=== PATIENT | female | born 1980 | race Caucasian/White ===

== ENCOUNTER 2017-06-09 01:25 | Observation (INO) | payer BC ==
[2017-06-09] MEDS ORDERED: Sodium Chloride 0.9% 10 ML Syringe FLUSH PRN (01:35)
[2017-06-09] MEDS ORDERED: Sodium Chloride 0.9% 1,000 ML IV ONE (01:35)
[2017-06-09] MEDS ORDERED: Sodium Chloride 0.9% 2.5 ML Syringe FLUSH PRN (01:35)
--- NOTE | 2017-06-09 01:40 | EDM.PDOC ---
ED HPI GENERAL MEDICAL PROBLEM - General Chief Complaint: Syncope Stated Complaint: AMBULANCE Time Seen by Provider: 06/09/17 01:27 - History of Present Illness INITIAL COMMENTS - FREE TEXT/NARRATIVE: HISTORY AND PHYSICAL: History of present illness: The patient is a 29-year-old female with a history of seizure disorder for which she is supposed to take Keppra and ran out several months ago and has not restarted it and to also has a history of "hypoglycemia" and he presents via EMS after having an episode of syncope while in a bar drinking alcohol tonight. According to the patient she was having a complete normal day without any fever chills chest pain shortness breath abdominal pain vomiting or diarrhea and she denies as she has a female partner and who says that she was talking to her friends and then the next thing she recalls is being on the floor and paramedics and family being around her period according to her significant other she would like she was going to pass out and she was caught and lowered to the ground. Family says that she looked very pale for quite some time and they requested EMS transfer. The patient had no seizure-like activity and the patient says she usually can sense when she's going to have a seizure and she did not have those symptoms prior to this event. Patient denies any head neck or back pain no extremity complaints. Review of systems: As per history of present illness and below otherwise all systems reviewed and negative. Past medical history: As per history of present illness and as reviewed below otherwise noncontributory. Surgical history: As per history of present illness and as reviewed below otherwise noncontributory. Social history: No reported history of drug or alcohol abuse. Family history: As per history of present illness and as reviewed below otherwise noncontributory. Physical exam: Gen.: Well-developed well-nourished female who is speaking was slightly slurred speech secondary to recent alcohol use and vital signs have been reviewed by me. Patient's overall presentation is with somewhat pale appearing skin HEENT: Atraumatic, normocephalic, pupils reactive, sclerae are slightly injected , negative for scleral icterus, there is some conjunctival pallor mucous membranes moist, throat clear, neck supple, nontender, trachea midline. There is no scalp tenderness or deformity and there are no midline step-offs in his defects of the cervical spine Lungs: Clear to auscultation, breath sounds equal bilaterally, chest nontender. Heart: S1S2, regular rate and rhythm no overt murmurs Abdomen: Soft, nondistended, nontender. Negative for masses or hepatosplenomegaly. NABS Pelvis: Stable nontender. Genitourinary: There is no gross vaginal bleeding on visual inspection Rectal: There is no evidence of any masses or lesions on rectal exam there are no fissures and there is scant stool in the vault which is Hemoccult negative Extremities: Atraumatic, negative for cords or calf pain. Neurovascular unremarkable. Full range of motion without any defects or deficits Neuro: Awake, alert, oriented. Cranial nerves II through XII grossly unremarkable Motor and sensory unremarkable throughout. Exam nonfocal. Diagnostics: EKG CBC CMP troponin EtOH Accu-Chek UA UDS type and screen Lab is rechecking the hemoglobin as the initial draw showed a low level and they asked that I also order a type and screen which I have. The repeat hemoglobin is 6.2 and it discussed this with the patient and her significant other at bedside. The patient now tells me she has a history of gastric bypass and has had gastric ulcers in the past but has never had to receive a blood transfusion. She currently only drinks alcohol maybe twice a month and does not take nonsteroidals and she only drinks one bottle of Mountain Dew a day. She tells me she does have heavy periods but she is currently not on her menses and she denies that there is any evidence of bleeding in her urine and stool or from her vagina.. In the last menses was 2-1/ 2 weeks ago. They are aware of this low hemoglobin and the need for admission and I will discuss this case with the hospitalist [id number]: Case was discussed with Dr. Olivas our hospitalist who accepts the patient for admission observation and agrees with 2 units packed red blood cells. Therapeutics: IV monitor IV fluids Protonix 2 units of packed red blood cells have been ordered Impression: Symptomatically anemia with syncope Definitive disposition and diagnosis as appropriate pending reevaluation and review of above. - Related Data Allergies Allergy/AdvReac Type Severity Reaction Status Date / Time Opioids - Morphine Analogues Allergy Tachycardia Verified 06/09/17 02:26 Home Meds: Home Meds . [No Known Home Meds] 06/09/17 [History] ED ROS GENERAL - Review of Systems Review Of Systems: ROS reveals no pertinent complaints other than HPI. ED EXAM, GENERAL - Physical Exam Exam: See Below (See dictation) Course - Vital Signs Last Recorded V/S: Last Vital Signs Temp 37.1 C 06/09/17 01:38 Pulse 86 06/09/17 01:38 Resp 12 06/09/17 01:38 BP 109/51 L 06/09/17 01:38 Pulse Ox 100 06/09/17 01:38 - Orders/Labs/Meds Orders: Active Orders 24 hr Category Date Time Status Blood Glucose Check, Bedside [RC] ONETIME Care 06/09/17 01:35 Active Cardiac Monitoring [RC] . DIRECTED Care 06/09/17 01:35 Active EKG Documentation Completion [RC] STAT Care 06/09/17 01:35 Active DRUG SCREEN, URINE [URCHEM] Stat Lab 06/09/17 02:13 Ordered TYPE AND SCREEN [BBK] Stat Lab 06/09/17 02:35 Received UA W/MICROSCOPIC [URIN] Stat Lab 06/09/17 02:13 Ordered Sodium Chloride 0.9% [Saline Flush] Med 06/09/17 01:35 Active 10 ml FLUSH ASDIRECTED PRN Sodium Chloride 0.9% [Saline Flush] Med 06/09/17 01:35 Active 2.5 ml FLUSH ASDIRECTED PRN Saline Lock Insert [OM.PC] Stat Oth 06/09/17 01:35 Ordered Transfuse RBC [Transfuse Red Blood Cells] [COMM] Stat Oth 06/09/17 03:09 Ordered Medication Orders Sodium Chloride (Saline Flush) 10 ml FLUSH ASDIRECTED PRN PRN Reason: Keep Vein Open Sodium Chloride (Saline Flush) 2.5 ml FLUSH ASDIRECTED PRN PRN Reason: Keep Vein Open Labs: Laboratory Tests 06/09/17 06/09/17 Range/Units 02:00 02:00 WBC 8.35 (4.0-11.0) K/uL RBC 3.95 L (4.30-5.90) M/uL Hgb 6.2 L (12.0-16.0) g/dL Hct 24.3 L (36.0-46.0) % MCV 61.5 L (80.0-98.0) fL MCH 15.7 L (27.0-32.0) pg MCHC 25.5 L (31.0-37.0) g/dL RDW Std Deviation 57.7 (28.0-62.0) fl RDW Coeff of Kenny 26 H (11.0-15.0) % Plt Count 195 (150-400) K/uL Neut % (Auto) 51.5 (48.0-80.0) % Lymph % (Auto) 38.2 (16.0-40.0) % [place] % (Auto) 7.1 (0.0-15.0) % Eos % (Auto) 1.0 (0.0-7.0) % Baso % (Auto) 2.2 H (0.0-1.5) % Neut # (Auto) 4.3 (1.4-5.7) K/uL Lymph # (Auto) 3.2 H (0.6-2.4) K/uL [place] # (Auto) 0.6 (0.0-0.8) K/uL Eos # (Auto) 0.1 (0.0-0.7) K/uL Baso # (Auto) 0.2 H (0.0-0.1) K/uL Nucleated RBC % 0.0 /100WBC Nucleated RBCs # 0 K/uL Sodium 143 (136-146) mmol/L Potassium 3.6 (3.5-5.1) mmol/L Chloride 112 H (98-110) mmol/L Carbon Dioxide 19 L (21-31) mmol/L BUN 11 (6.0-23.0) mg/dL Creatinine 0.6 (0.6-1.5) mg/dL Est Cr Clr Drug Dosing 123.63 mL/min Estimated GFR (MDRD) > 60.0 ml/min Glucose 93 (60-110) mg/dL Calcium 8.9 (8.8-10.8) mg/dL Total Bilirubin 0.2 (0.1-1.5) mg/dL AST 23 (5-40) IU/L ALT 18 (8-54) IU/L Alkaline Phosphatase 73 (40-150) Troponin I < 0.10 (0.0-0.29) NG/ML Total Protein 6.9 (6.0-8.0) g/dL Albumin 4.4 (3.5-5.0) g/dL Globulin 2.5 (2.0-3.5) g/dL Albumin/Globulin Ratio 1.8 (1.3-2.8) Ethyl Alcohol 300.4 mg/dL Meds: Medications Generic Name Dose Route Start Last Admin Trade Name Lula PRN Reason Stop Dose Admin Sodium Chloride 10 ml 06/09/17 01:35 Saline Flush FLUSH ASDIRECTED PRN Keep Vein Open Sodium Chloride 2.5 ml 06/09/17 01:35 Saline Flush FLUSH ASDIRECTED PRN Keep Vein Open Discontinued Medications Generic Name Dose Route Start Last Admin Trade Name Lula PRN Reason Stop Dose Admin Sodium Chloride 1,000 mls @ 999 mls/hr 06/09/17 01:35 06/09/17 02:02 Normal Saline IV 06/09/17 02:35 999 mls/hr STAT ONE Administration Pantoprazole Sodium 80 mg 06/09/17 02:46 06/09/17 02:58 Protonix Iv IVPUSH 06/09/17 02:47 80 mg .BOLUS ONE Administration Departure - Departure Time of Disposition: 03:11 Disposition: Refer to Observation Condition: Good Clinical Impression: Anemia Qualifiers: Anemia type: unspecified type Qualified Code(s): D64.9 - Anemia, unspecified Syncope Qualifiers: Syncope type: unspecified Qualified Code(s): R55 - Syncope and collapse - Discharge Information Referrals: PCP,None [Primary Care Provider] - Forms: ED Department Discharge - My Orders Last 24 Hours: My Active Orders 06/09/17 01:35 Blood Glucose Check, Bedside [RC] ONETIME Cardiac Monitoring [RC] . DIRECTED EKG Documentation Completion [RC] STAT Sodium Chloride 0.9% [Saline Flush] 10 ml FLUSH ASDIRECTED PRN Sodium Chloride 0.9% [Saline Flush] 2.5 ml FLUSH ASDIRECTED PRN Saline Lock Insert [OM.PC] Stat 06/09/17 02:13 DRUG SCREEN, URINE [URCHEM] Stat UA W/MICROSCOPIC [URIN] Stat 06/09/17 02:35 TYPE AND SCREEN [BBK] Stat 06/09/17 03:09 Transfuse RBC [Transfuse Red Blood Cells] [COMM] Stat - Assessment/Plan Last 24 Hours: My Active Orders 06/09/17 01:35 Blood Glucose Check, Bedside [RC] ONETIME Cardiac Monitoring [RC] . DIRECTED EKG Documentation Completion [RC] STAT Sodium Chloride 0.9% [Saline Flush] 10 ml FLUSH ASDIRECTED PRN Sodium Chloride 0.9% [Saline Flush] 2.5 ml FLUSH ASDIRECTED PRN Saline Lock Insert [OM.PC] Stat 06/09/17 02:13 DRUG SCREEN, URINE [URCHEM] Stat UA W/MICROSCOPIC [URIN] Stat 06/09/17 02:35 TYPE AND SCREEN [BBK] Stat 06/09/17 03:09 Transfuse RBC [Transfuse Red Blood Cells] [COMM] Stat
[2017-06-09 02:34] LABS: CHLORIDE,CL 112 mmol/L (98-110); SODIUM,NA 143 mmol/L (136-146)
[2017-06-09] MEDS ORDERED: Pantoprazole 40 MG Vial IVPUSH ONE (02:46)
[2017-06-09] MEDS: Pantoprazole 40 MG Vial IVPUSH SCH ×2 (08:36→20:18)
--- NOTE | 2017-06-09 09:19 | PCM.HP ---
H&P History of Present Illness - General Date of Service: 06/09/17 Admit Problem/Dx: Admission Diagnosis/Problem Admission Diagnosis/Problem Anemia Source of Information: Patient History Limitations: Reports: No Limitations - History of Present Illness Initial Comments - Free Text/Narative: This 37 year old female with pmh of seizure disorder and is currently not taking her Keppra, iron deficiency anemia secondary to menorrhagia, and gastric bypass presented to the ED last evening after having a syncopal episode at the bar with her . Her reports they were hanging out having a few drinks and suddenly she leaned into her and was "out". People around her commented on how pale she looked. No seizure activity noted by or others around her. She was brought to the ED and noted to have Hgb 6.2 HCT 24.3. She denies current or recent black or bloody BMs, no coffee ground emesis and no bloody emesis. She reports having long history of gastric ulcers, "since age 12", but doesn't take anything for this. She denies heavy use of NSAIDs, she had gastric bypass with cholecystectomy in 2003. She does report heavy menses, which have been a normal for her over the past years and have caused her to have iron deficiency anemia. She reports taking Multivitamins with extra iron, she has a hard time finding iron supplements she can take because she is allergic to red dye 40. She reports 5-6 years ago she was admitted to [facility] due to hgb of 2 and given blood transfusions. She reports her follow up with [facility] has been patchy and felt no one was helping her and she was falling to the seminole. Her and her recently moved to [place] and need to be set up with new providers. In the ED no leukocytosis noted, hgb 6.2 with hct 24.3 UA negative ETOH 300.4. She was noted to be hypotensive, 80-100/50s no tachycardia noted. She was admitted for anemia likely secondary to menorrhagia, which is not current. - Related Data Allergies/Adverse Reactions: Allergies Allergy/AdvReac Type Severity Reaction Status Date / Time red dye Allergy Severe Anaphylactic Verified 06/09/17 09:40 Shock Opioids - Morphine Analogues Allergy Tachycardia Verified 06/09/17 09:40 Home Medications: Home Meds . [No Known Home Meds] 06/09/17 [History] Past Medical History HEENT History: Reports: Other (See Below) Other HEENT History: sinus polyps Cardiovascular History: Reports: None. Denies: Blood Clots/VTE/DVT, CAD, High Cholesterol, Hypertension, DE Respiratory History: Reports: Asthma, Bronchitis, Recurrent, COPD (reports she was diagnosed at 22, never had PFT.) Gastrointestinal History: Reports: Cholelithiasis. 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 Reports soaking 1 super tampon in 20 minutes. Wears tampons and poise briefs due to bleeding. Last menses was around thanksgiving and this lasted 2 1/2 weeks. 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15, colposcopy after her child .) Musculoskeletal History: Reports: Arthritis, Fibromyalgia, Other (See Below) Other Musculoskeletal History: scoliosis Neurological History: Reports: Head Trauma, Migraines, Seizure Psychiatric History: Reports: None Endocrine/Metabolic History: Reports: None Hematologic History: Reports: Anemia Oncologic (Cancer) History: Reports: None Dermatologic History: Reports: None - Infectious Disease History Infectious Disease History: Reports: Chicken Pox, Human Papilloma Virus (HPV) - Past Surgical History Head Surgeries/Procedures: Reports: None HEENT Surgical History: Reports: Adenoidectomy, Tonsillectomy Respiratory Surgical History: Reports: None GI Surgical History: Reports: Bariatric Procedure, Cholecystectomy Neurological Surgical History: Reports: None Musculoskeletal Surgical History: Reports: None - History Comment History Comment: Identical twin, 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 Social & Family History - Family History Family Medical History: Noncontributory - Tobacco Use Smoking Status *Q: Current Every Day Smoker Years of Tobacco use: 17 Packs/Tins Daily: 1 Second Hand Smoke Exposure: Yes - Caffeine Use Caffeine Use: Reports: Soda - Alcohol Use Alcohol Use Frequency: Socially (couple times a month.) - Recreational Drug Use Recreational Drug Use: No - Living Situation & Occupation Living situation: Reports: (same sex partner) Occupation: Employed ([employer]) H&P Review of Systems - Review of Systems: Review Of Systems: See Below General: Reports: Fatigue. Denies: Fever, Chills, Malaise HEENT: Reports: No Symptoms. Denies: Headaches, Sinus Congestion, Sore Throat, Vertigo Pulmonary: Reports: No Symptoms. Denies: Shortness of Breath, Cough, Sputum Cardiovascular: Reports: No Symptoms. Denies: Chest Pain, Palpitations, Edema Gastrointestinal: Reports: No Symptoms. Denies: Abdominal Pain, Black Stool, Bloody Stool, Decreased Appetite, Nausea, Vomiting Genitourinary: Reports: No Symptoms. Denies: Dysuria, Frequency, Burning, Pain , Urgency Musculoskeletal: Reports: Other (generalized joint pains, secondary to fibromyalgia) Skin: Reports: No Symptoms Neurological: Reports: No Symptoms. Denies: Trouble Speaking Exam - Exam Exam: See Below - Vital Signs Vital Signs: Last Vital Signs Temp 98.9 F 06/09/17 09:10 Pulse 83 06/09/17 09:10 Resp 20 06/09/17 09:10 BP 87/40 L 06/09/17 09:10 Pulse Ox 95 06/09/17 09:10 Weight: 64.5 kg - Exam General: Alert, Oriented, Cooperative HEENT: Conjunctiva Clear, Mucosa Moist & Carrier Neck: Supple, Trachea Midline, 2 Lungs: Clear to Auscultation, Normal Respiratory Effort Cardiovascular: Regular Rate, Regular Rhythm GI/Abdominal Exam: Normal Bowel Sounds, Soft, Non-Tender, No Organomegaly, No Distention, No Abnormal Bruit, No Mass, Pelvis Stable (Female) Exam: No: Vaginal Bleeding, Vaginal Discharge Back Exam: Normal Inspection, Full Range of Motion, NT Extremities: Normal Inspection, Normal Range of Motion, Non-Tender, No Pedal Edema, Normal Capillary Refill Neuro Extensive - Mental Status: Alert, Oriented x3, Normal Mood/Affect, Normal Cognition Psychiatric: Alert, Normal Affect, Normal Mood - Patient Data Result Diagrams: 06/09/17 12:40 06/09/17 02:00 *Q Meaningful Use (ADM) - VTE *Q VTE Criteria *Q: - Stroke *Q Stroke Criteria *Q: - AMI *Q AMI Criteria *Q: - Problem List (1) Syncope SNOMED Code(s): 630807087 ICD Code: R55 - SYNCOPE AND COLLAPSE Status: Acute Current Visit: Yes Qualifiers: Syncope type: unspecified Qualified Code(s): R55 - Syncope and collapse (2) Anemia SNOMED Code(s): 082512928 ICD Code: D64.9 - ANEMIA, UNSPECIFIED Status: Acute Current Visit: Yes Qualifiers: Anemia type: iron deficiency Iron deficiency anemia type: chronic blood loss Qualified Code(s): D50.0 - Iron deficiency anemia secondary to blood loss (chronic) (3) Menorrhagia SNOMED Code(s): 677143701 ICD Code: N92.0 - EXCESSIVE AND FREQUENT MENSTRUATION WITH REGULAR CYCLE Status: Chronic Current Visit: Yes Qualifiers: Menorrahagia type: with irregular cycle Qualified Code(s): N92.1 - Excessive and frequent menstruation with irregular cycle (4) Fibromyalgia SNOMED Code(s): 774633094 ICD Code: M79.7 - FIBROMYALGIA Status: Chronic Current Visit: Yes (5) Hx of seizure disorder SNOMED Code(s): 849863385 ICD Code: Z86.69 - PERSONAL HISTORY OF DIS OF THE NERVOUS SYS AND SENSE ORGANS Status: Chronic Current Visit: Yes (6) Migraine SNOMED Code(s): 53943999 ICD Code: G43.909 - MIGRAINE, UNSP, NOT INTRACTABLE, WITHOUT STATUS MIGRAINOSUS Status: Chronic Current Visit: Yes (7) Dysfunctional uterine bleeding SNOMED Code(s): 84744176 ICD Code: N93.8 - OTHER SPECIFIED ABNORMAL UTERINE AND VAGINAL BLEEDING Status: Acute Current Visit: Yes Problem List Initiated/Reviewed/Updated: Yes Orders Last 24hrs: Active Orders 24 hr Category Date Time Status Hemoccult [Fecal Occult Blood Collection] [RC] Care 06/09/17 07:57 Active ASDIRECTED Telemetry Monitoring [Cardiac Monitoring] [RC] Q8H Care 06/09/17 03:17 Active Regular Diet [DIET] Diet 06/09/17 Breakfast Active Hemoccult [OCCULT BLOOD DIAGNOSTIC] [OP] Routine Lab 06/09/17 07:57 Uncollected Pantoprazole [ProTONIX IV] Med 06/09/17 08:15 Active 40 mg IVPUSH Q12H Medication Orders Pantoprazole Sodium (Protonix Iv) 40 mg IVPUSH Q12H MATEUS Last Admin: 06/09/17 08:36 Dose: 40 mg Sodium Chloride (Saline Flush) 10 ml FLUSH ASDIRECTED PRN PRN Reason: Keep Vein Open Sodium Chloride (Saline Flush) 2.5 ml FLUSH ASDIRECTED PRN PRN Reason: Keep Vein Open Assessment/Plan Comment:: This 37 year old female admitted due to syncope secondary to iron deficiency anemia which is secondary to dysfunctional uterine bleeding. 1. Anemia: Unable to obtain Iron studies, patient already receiving blood and unable add on to ED labwork. Anemia secondary to dysfunctional uterine bleeding. Transfuse with 2 units PRBCS, recheck hgb 1 hr post transfusion. Patient is requesting discharge home after blood. 2. Dysfunctional uterine bleeding: Not active uterine bleeding. Patient requested female provider only, even if surgery is needed. Will Refer to [facility] for evaluation and treatment. 3. Seizure disorder: Ran out of Keppra, last seizure was 1 week ago. Will restart Keppra 750 mg BID today and give 1 month prescription so she is able to establish care with PCP and obtain prescription. VTE prophylaxis: SCDs only Dispo: Likely DC home later today. After 2 units PRBCS hgb remains 7.1 Will give 2 more units today and monitor overnight. Patient is ok with this.
[2017-06-09] MEDS: levETIRAcetam 500 MG Tab PO SCH ×2 (10:12→20:18)
[2017-06-09] MEDS ORDERED: Acetaminophen 325 MG Tab PO PRN (13:30)
[2017-06-10 05:57] LABS: CHLORIDE,CL 112 mmol/L (98-110); SODIUM,NA 140 mmol/L (136-146)
[2017-06-10] MEDS: levETIRAcetam 500 MG Tab PO SCH (08:18)
[2017-06-10] MEDS: Pantoprazole 40 MG Vial IVPUSH SCH (08:18)
--- NOTE | 2017-06-10 09:08 | PCM.DCSUM1 ---
Discharge Summary - Hospital Course Brief History: This 37 year old female with pmh of seizure disorder and is currently not taking her Keppra, iron deficiency anemia secondary to menorrhagia , and gastric bypass presented to the ED after having a syncopal episode at the bar with her . Her reports they were hanging out having a few drinks and suddenly she leaned into her and was "out". People around her commented on how pale she looked. No seizure activity noted by or others around her. She was brought to the ED and noted to have Hgb 6.2 HCT 24.3. She denies current or recent black or bloody BMs, no coffee ground emesis and no bloody emesis. She reports having long history of gastric ulcers, "since age 12", but doesn't take anything for this. She denies use of NSAIDs, she had gastric bypass with cholecystectomy in 2003. She does report heavy menses, which have been a normal for her over the past years and have caused her to have iron deficiency anemia. She reports taking Multivitamins with extra iron, she has a hard time finding iron supplements she can take because she is allergic to red dye 40. She reports 5-6 years ago she was admitted to [facility] due to hgb of 2 and given blood transfusions. She reports her follow up with [employer] has been patchy and felt no one was helping her and she was falling to the dover. Her and her recently moved to [place] and need to be set up with new providers. In the ED no leukocytosis noted, hgb 6.2 with hct 24.3 UA negative ETOH 300.4. She was noted to be hypotensive, 80-100/50s no tachycardia noted. She was admitted for anemia likely secondary to menorrhagia, but is not currently having menses. - Discharge Data Discharge Date: 06/10/17 Discharge Disposition: Home, Self-Care 01 Condition: Good - Discharge Diagnosis/Problem(s) (1) Syncope SNOMED Code(s): 892871774 ICD Code: R55 - SYNCOPE AND COLLAPSE Status: Acute Current Visit: Yes Qualifiers: Syncope type: unspecified Qualified Code(s): R55 - Syncope and collapse (2) Anemia SNOMED Code(s): 208806717 ICD Code: D64.9 - ANEMIA, UNSPECIFIED Status: Acute Current Visit: Yes Qualifiers: Anemia type: iron deficiency Iron deficiency anemia type: chronic blood loss Qualified Code(s): D50.0 - Iron deficiency anemia secondary to blood loss (chronic) (3) Menorrhagia SNOMED Code(s): 057939740 ICD Code: N92.0 - EXCESSIVE AND FREQUENT MENSTRUATION WITH REGULAR CYCLE Status: Chronic Current Visit: Yes Qualifiers: Menorrahagia type: with irregular cycle Qualified Code(s): N92.1 - Excessive and frequent menstruation with irregular cycle (4) Fibromyalgia SNOMED Code(s): 451051827 ICD Code: M79.7 - FIBROMYALGIA Status: Chronic Current Visit: Yes (5) Hx of seizure disorder SNOMED Code(s): 423100126 ICD Code: Z86.69 - PERSONAL HISTORY OF DIS OF THE NERVOUS SYS AND SENSE ORGANS Status: Chronic Current Visit: Yes (6) Migraine SNOMED Code(s): 96617289 ICD Code: G43.909 - MIGRAINE, UNSP, NOT INTRACTABLE, WITHOUT STATUS MIGRAINOSUS Status: Chronic Current Visit: Yes (7) Dysfunctional uterine bleeding SNOMED Code(s): 76535007 ICD Code: N93.8 - OTHER SPECIFIED ABNORMAL UTERINE AND VAGINAL BLEEDING Status: Acute Current Visit: Yes - Patient Instructions Diet: Regular Diet as Tolerated Activity: As Tolerated Driving: May Drive Today Showering/Bathing: May Shower Notify Provider of: Fever, Increased Pain, Swelling and Redness, Drainage, Nausea and/or Vomiting - Discharge Plan Prescriptions/Med Rec: Ferrous Gluconate 324 mg PO TID #100 tablet levETIRAcetam [Keppra] 750 mg PO BID 30 Days #60 tablet Home Medications: Home Meds Ferrous Gluconate 324 mg PO TID #100 tablet 06/10/17 [Rx] levETIRAcetam [Keppra] 750 mg PO BID 30 Days #60 tablet 06/10/17 [Rx] Referrals: Shahida Ba NP [Nurse Practitioner] - 06/19/17 1:00 pm Stacy Armendariz MD [Physician] - 06/26/17 1:45 pm (Registration at 1:20pm.) - Discharge Summary/Plan Comment DC Time >30 min.: No Discharge Summary/Plan Comment: Discharge Diagnoses: Severe iron deficiency anemia Dysfunctional Uterine bleeding Hx Seizures Hx gastric bypass in 2003 Devi was admitted and initially transfused with 2 units PRBCs, hgb elevated to 7.1 and hypotension remained. She was then trasnfused another 2 units, totalling 4 units. Hgb elevated to 9.8 today and hypotension has resolved. She is feeling better, no lightheadedness or dizziness and no tachycardia noted. She is very eager for discharge home. She has not had BM here, but continues to deny having any black or bloody BMs and has no abdominal pain. She was encouraged to continue taking iron TID. She reports menses are very irregular and is unsure when she will have it next. She requested to be set up with female women's health physician and requested to be see by Dr. Armendariz if possible. This was arranged prior to discharge. Regarding seizures, she has not been taking her Keppra, due to running out of her medications. Her last seizure was 1 week ago. I will prescribe her Keppra 750 mg BID and set her up with a PCP here in town so she is able to establish care and obtain prescriptions easier. She is to return to the clinic or ED if concerns should arise. - General Info Date of Service: 06/10/17 Admission Dx/Problem (Free Text: Admission Diagnosis/Problem Admission Diagnosis/Problem Anemia Subjective Update: Feeling a lot better today. Very eager for discharge home. No vaginal bleeding and no black or bloody BMs. She denies chest pain, SOB or palpitations. No lightheadedness or dizziness. Functional Status: Reports: Tolerating Diet, Ambulating, Urinating - Review of Systems General: Reports: No Symptoms. Denies: Fatigue, Malaise HEENT: Reports: No Symptoms. Denies: Headaches, Visual Changes Pulmonary: Reports: No Symptoms. Denies: Shortness of Breath Cardiovascular: Reports: No Symptoms. Denies: Chest Pain, Palpitations, Edema Gastrointestinal: Denies: Abdominal Pain, Melena, Nausea, Vomiting Genitourinary: Reports: No Symptoms. Denies: Dysuria, Frequency, Burning, Pain , Urgency Musculoskeletal: Reports: No Symptoms. Denies: Neck Pain Neurological: Reports: No Symptoms. Denies: Confusion Psychiatric: Denies: No Symptoms, Confusion - Patient Data Vitals - Most Recent: Last Vital Signs Temp 98.3 F 06/10/17 08:00 Pulse 73 06/10/17 08:00 Resp 16 06/10/17 08:00 BP 109/67 12/13/17 08:00 Pulse Ox 99 06/10/17 08:00 Weight - Most Recent: 64.5 kg I&O - Last 24 hours: Intake & Output 06/09/17 06/10/17 06/10/17 22:59 06:59 14:59 Intake Total 1597 500 Output Total 1300 1500 Balance 297 -1000 Lab Results - Last 24 hrs: Laboratory Results - last 24 hr 06/09/17 06/09/17 06/10/17 Range/Units 12:40 21:25 04:39 WBC 7.11 8.07 (4.0-11.0) K/uL RBC 3.80 L 4.78 (4.30-5.90) M/uL Hgb 7.1 L 9.7 L 9.8 L (12.0-16.0) g/dL Hct 25.4 L 33.4 L 33.8 L (36.0-46.0) % MCV 66.8 L 70.7 L (80.0-98.0) fL MCH 18.7 L 20.5 L (27.0-32.0) pg MCHC 28.0 L 29.0 L (31.0-37.0) g/dL RDW Std Deviation 67.0 H 72.6 H (28.0-62.0) fl RDW Coeff of Kenny 28 H 28 H (11.0-15.0) % Plt Count 179 224 (150-400) K/uL Neut % (Auto) 61.8 54.0 (48.0-80.0) % Lymph % (Auto) 27.0 28.4 (16.0-40.0) % Lares % (Auto) 9.1 12.9 (0.0-15.0) % Eos % (Auto) 1.0 2.6 (0.0-7.0) % Baso % (Auto) 1.1 2.1 H (0.0-1.5) % Neut # (Auto) 4.4 4.4 (1.4-5.7) K/uL Lymph # (Auto) 1.9 2.3 (0.6-2.4) K/uL Lares # (Auto) 0.7 1.0 H (0.0-0.8) K/uL Eos # (Auto) 0.1 0.2 (0.0-0.7) K/uL Baso # (Auto) 0.1 0.2 H (0.0-0.1) K/uL Nucleated RBC % 0.0 0.0 /100WBC Nucleated RBCs # 0 0 K/uL Sodium (136-146) mmol/L Potassium (3.5-5.1) mmol/L Chloride (98-110) mmol/L Carbon Dioxide (21-31) mmol/L BUN (6.0-23.0) mg/dL Creatinine (0.6-1.5) mg/dL Est Cr Clr Drug Dosing mL/min Estimated GFR (MDRD) ml/min Glucose (60-110) mg/dL Calcium (8.8-10.8) mg/dL 06/10/17 Range/Units 04:39 WBC (4.0-11.0) K/uL RBC (4.30-5.90) M/uL Hgb (12.0-16.0) g/dL Hct (36.0-46.0) % MCV (80.0-98.0) fL MCH (27.0-32.0) pg MCHC (31.0-37.0) g/dL RDW Std Deviation (28.0-62.0) fl RDW Coeff of Kenny (11.0-15.0) % Plt Count (150-400) K/uL Neut % (Auto) (48.0-80.0) % Lymph % (Auto) (16.0-40.0) % Lares % (Auto) (0.0-15.0) % Eos % (Auto) (0.0-7.0) % Baso % (Auto) (0.0-1.5) % Neut # (Auto) (1.4-5.7) K/uL Lymph # (Auto) (0.6-2.4) K/uL Lares # (Auto) (0.0-0.8) K/uL Eos # (Auto) (0.0-0.7) K/uL Baso # (Auto) (0.0-0.1) K/uL Nucleated RBC % /100WBC Nucleated RBCs # K/uL Sodium 140 (136-146) mmol/L Potassium 4.3 (3.5-5.1) mmol/L Chloride 112 H (98-110) mmol/L Carbon Dioxide 20 L (21-31) mmol/L BUN 14 (6.0-23.0) mg/dL Creatinine 0.6 (0.6-1.5) mg/dL Est Cr Clr Drug Dosing 123.30 mL/min Estimated GFR (MDRD) > 60.0 ml/min Glucose 167 H (60-110) mg/dL Calcium 8.0 L (8.8-10.8) mg/dL Med Orders - Current: Current Medications Acetaminophen (Tylenol) 650 mg PO Q4H PRN PRN Reason: Pain Levetiracetam (Keppra) 750 mg PO BID [facility] Last Admin: 06/10/17 08:18 Dose: 750 mg Pantoprazole Sodium (Protonix Iv) 40 mg IVPUSH Q12H [facility] Last Admin: 06/10/17 08:18 Dose: 40 mg Sodium Chloride (Saline Flush) 10 ml FLUSH ASDIRECTED PRN PRN Reason: Keep Vein Open Sodium Chloride (Saline Flush) 2.5 ml FLUSH ASDIRECTED PRN PRN Reason: Keep Vein Open Discontinued Medications Sodium Chloride (Normal Saline) 1,000 mls @ 999 mls/hr IV STAT ONE Stop: 06/09/17 02:35 Last Admin: 06/09/17 02:02 Dose: 999 mls/hr Pantoprazole Sodium (Protonix Iv) 80 mg IVPUSH .BOLUS ONE Stop: 06/09/17 02:47 Last Admin: 06/09/17 02:58 Dose: 80 mg - Exam General: Reports: Alert, Oriented, Cooperative, No Acute Distress Neck: Reports: Supple Lungs: Reports: Clear to Auscultation, Normal Respiratory Effort Cardiovascular: Reports: Regular Rate, Regular Rhythm GI/Abdominal Exam: Normal Bowel Sounds, Soft, Non-Tender, No Organomegaly, No Distention, No Abnormal Bruit, No Mass, Pelvis Stable Extremities: Normal Inspection, Normal Range of Motion, Non-Tender, No Pedal Edema, Normal Capillary Refill Neurological: Reports: No New Focal Deficit Psy/Mental Status: Reports: Alert, Normal Affect, Normal Mood *Q Meaningful Use (DIS) - VTE *Q VTE Criteria *Q: - Stroke *Q Stroke Criteria *Q: - AMI *Q AMI Criteria *Q:
== END 2017-06-10 10:35 | disposition home or self-care (01) ==
LOC: MW.ED 01:25 → MW.MS 03:12
PROVIDERS: ADMIT Internal Medicine; ATTEND Internal Medicine
DX: N92.0 Excessive and frequent menstruation with regular cycle (principal); D50.0 Iron deficiency anemia secondary to blood loss (chronic); G40.909 Epilepsy, unspecified, not intractable, without status epilepticus; M79.7 Fibromyalgia; N93.8 Other specified abnormal uterine and vaginal bleeding; I95.9 Hypotension, unspecified; J44.9 Chronic obstructive pulmonary disease, unspecified; M19.90 Unspecified osteoarthritis, unspecified site; M41.9 Scoliosis, unspecified; F17.200 Nicotine dependence, unspecified, uncomplicated; Z90.49 Acquired absence of other specified parts of digestive tract; Z98.84 Bariatric surgery status; Z88.5 Allergy status to narcotic agent; Z91.048 Other nonmedicinal substance allergy status; Z90.89 Acquired absence of other organs
CPT/HCPCS: 36415; 36430; 80048; 80053; 80305; 81001; 84484; 85014; 85018; 85025; 85045; 86850; 86900; 86901; 86920; 86921; 86922; 88104; 93005; 96361; 96374; 96376; 99285; A9270; C9113; G0378; G0480; J7040; P9016; 99284

== ENCOUNTER 2017-08-17 08:17 | Day surgery (SDC) | payer BC ==
[~2017-08-17 08:17] MED LIST: Clindamycin Phosphate 900 MG in Premix Bag 1 BAG IV SCH; Clindamycin Phosphate in D5W 900 MG in Premix Bag 1 BAG IV ONE; Dexamethasone 4 MG/ML 5 ML MDV ONE; Lactated Ringers 1,000 ML IV SCH; Levofloxacin/Dextrose 5%-Water 500 MG in Premix Bag 1 BAG IV ONE; Midazolam 1 MG/ML 2 ML SDV ONE; Ondansetron 4 MG/2 ML SDV ONE; Propofol 200 MG/20 ML SDV ONE; Rocuronium 10 MG/ML 10 ML Syringe ONE; Sodium Chloride 0.9% 10 ML Syringe FLUSH PRN; Sodium Chloride 0.9% 2.5 ML Syringe FLUSH PRN; Succinylcholine/Normal Saline 200 MG/10 ML Syringe ONE; fentaNYL 100 MCG/2 ML SDV ONE
--- NOTE | 2017-08-17 08:41 | PCM.PREANE ---
Preanesthetic Assessment - Anesthesia/Transfusion/Family Hx Anesthesia History: Prior Anesthesia Without Reaction Family History of Anesthesia Reaction: No Transfusion History: Prior Transfusion Without Reaction Type of Transfusion Reactions: Reports: Other (see below) Other Type of Transfusion Reaction: states had reaction to transfusion 5 yrs ago but unsure what kind Intubation History: Unknown - Review of Systems General: No Symptoms Pulmonary: No Symptoms Cardiovascular: No Symptoms Gastrointestinal: No Symptoms Neurological: No Symptoms Other: Reports: None - Physical Assessment Height: 1.68 m Weight: 65.317 kg ASA Class: 2 Mental Status: Alert & Oriented x3 Airway Class: Mallampati = 2 Dentition: Reports: Missing Tooth/Teeth (x4 (two upper front)) Thyro-Mental Finger Breadths: 3 Mouth Opening Finger Breadths: 3 ROM/Head Extension: Full Lungs: Clear to Auscultation, Normal Respiratory Effort Cardiovascular: Regular Rate, Regular Rhythm - Allergies Allergies/Adverse Reactions: Allergies Allergy/AdvReac Type Severity Reaction Status Date / Time cephalexin Allergy Rash Verified 08/12/17 09:20 meperidine [From Demerol] Allergy Rash Verified 08/12/17 08:27 morphine Allergy Tachycardia Verified 08/12/17 08:27 - Blood Blood Available: No - Anesthesia Plan Pre-Op Medication Ordered: None - Acknowledgements Anesthesia Type Planned: General Anesthesia Pt an Appropriate Candidate for the Planned Anesthesia: Yes Alternatives and Risks of Anesthesia Discussed w Pt/Guardian: Yes Pt/Guardian Understands and Agrees with Anesthesia Plan: Yes PreAnesthesia Questionnaire HEENT History: Reports: None Respiratory History: Reports: Asthma, COPD Gastrointestinal History: Reports: Hemorrhoids, Irritable Bowel Syndrome Other Gastrointestinal History: hx gastric ulcer Genitourinary History: Reports: None [employer] History: Reports: Dysfunctional Uterine Bleeding, Musculoskeletal History: Reports: Back Pain, Chronic, Fibromyalgia Neurological History: Reports: Migraines, Seizure (grand mal seizures, last one 06/09/17) Psychiatric History: Reports: Anxiety, Panic Attack Endocrine/Metabolic History: Reports: Other (See Below) Other Endocrine/Metabolic History: hypoglycemia Hematologic History: Reports: Anemia, Blood Transfusion(s) (4 unita 06/09/17, lqst hemoglobin 12 (per patient)), Transfusion Reaction Other Hematologic History: states had some sort of reaction with first blood transfusion 5 yrs ago, but unsure what it was - Past Surgical History Head Surgeries/Procedures: Reports: None HEENT Surgical History: Reports: Adenoidectomy, Tonsillectomy GI Surgical History: Reports: Bariatric Procedure, Cholecystectomy Other GI Surgeries/Procedures: hx gastric bypass with open aubree - SUBSTANCE USE Smoking Status *Q: Current Every Day Smoker (1 ppd) Tobacco Use Within Last Twelve Months: Cigarettes Recreational Drug Use History: No - HOME MEDS Home Medications: Home Meds Albuterol [IJD: Albuterol HFA] 2 puff INH ASDIRECTED PRN 08/12/17 [History] Ferrous Gluconate 1 tab PO DAILY 08/12/17 [History] Ginkgo Biloba 150 mg PO DAILY 08/12/17 [History] Multivitamin [Multivitamins] 1 tab PO DAILY 08/12/17 [History] Multivitamin with Minerals [Hair, Skin and Nails] 1 tab PO DAILY 08/12/17 [ History] Naproxen Sodium [Aleve] 1 tab PO ASDIRECTED PRN 08/12/17 [History] levETIRAcetam [Keppra] 750 mg PO BID 08/12/17 [History] - CURRENT (IN HOUSE) MEDS Current Meds: Current Medications Lactated Ringer's (Ringers, Lactated) 1,000 mls @ 125 mls/hr IV ASDIRECTED MATEUS Sodium Chloride (Saline Flush) 10 ml FLUSH ASDIRECTED PRN PRN Reason: Keep Vein Open Sodium Chloride (Saline Flush) 2.5 ml FLUSH ASDIRECTED PRN PRN Reason: Keep Vein Open Discontinued Medications Dexamethasone (Dexamethasone) Confirm Administered Dose 20 mg .ROUTE .STK-MED ONE Stop: 08/17/17 06:49 Fentanyl (Sublimaze) Confirm Administered Dose 100 mcg .ROUTE .STK-MED ONE Stop: 08/17/17 06:38 Levofloxacin/Dextrose 500 mg/ (Premix) 100 mls @ 100 mls/hr IV ONETIME ONE Stop: 08/17/17 05:59 Clindamycin Phosphate 900 mg/ (Premix) 50 mls @ 100 mls/hr IV ONETIME ONE Stop: 08/17/17 08:14 Lidocaine HCl (Xylocaine-Mpf 1%) Confirm Administered Dose 5 ml .ROUTE .STK-MED ONE Stop: 08/17/17 06:49 Midazolam HCl (Versed 1 Mg/Ml) Confirm Administered Dose 2 mg .ROUTE .STK-MED ONE Stop: 08/17/17 06:38 Ondansetron HCl (Zofran) Confirm Administered Dose 4 mg .ROUTE .STK-MED ONE Stop: 08/17/17 06:49 Propofol (Diprivan 20 Ml) Confirm Administered Dose 200 mg .ROUTE .STK-MED ONE Stop: 08/17/17 06:38 Rocuronium [place] (Zemuron) Confirm Administered Dose 100 mg .ROUTE .STK-MED ONE Stop: 08/17/17 06:50 Succinylcholine Chloride (Succinylcholine In Ns Pf) Confirm Administered Dose 200 mg .ROUTE .STK-MED ONE Stop: 08/17/17 06:50
[2017-08-17] MEDS ORDERED: Scopolamine 1.5 MG Transdermal Patch TRDERM PRN (08:42)
[2017-08-17 09:43] LABS: CHLORIDE,CL 111 mmol/L (98-110); SODIUM,NA 142 mmol/L (136-146)
[2017-08-17] MEDS ORDERED: Fluorescein 5 ML Vial ONE (10:10)
[2017-08-17] MEDS ORDERED: Ketorolac 30 MG/ML SDV ONE (10:13)
[2017-08-17] MEDS ORDERED: fentaNYL 100 MCG/2 ML SDV ONE (10:14)
[2017-08-17] MEDS ORDERED: Aluminum Hydroxide/Magnesium Hydroxide/Simethicone Susp 30 ML Cup PO PRN (11:15)
[2017-08-17] MEDS ORDERED: fentaNYL 100 MCG/2 ML SDV IVPUSH PRN (11:15)
[2017-08-17] MEDS ORDERED: Promethazine 25 MG/ML SDV IM PRN (11:15)
[2017-08-17] MEDS ORDERED: Ketorolac 30 MG/ML SDV IVPUSH PRN (11:15)
[2017-08-17] MEDS ORDERED: Acetaminophen/oxyCODONE 325-5 MG Tab PO PRN (11:15)
[2017-08-17] MEDS ORDERED: Ondansetron 4 MG/2 ML SDV IVPUSH PRN (11:15)
[2017-08-17] MEDS ORDERED: Ketorolac 30 MG/ML SDV IVPUSH ONE (11:15)
[2017-08-17] MEDS ORDERED: Belladonna Alkaloids/Opium 16.2-30 MG Supp RECTAL PRN (11:15)
[2017-08-17] MEDS ORDERED: Lactated Ringers 1,000 ML IV SCH (11:15)
[2017-08-17] MEDS: fentaNYL 100 MCG/2 ML SDV IVPUSH PRN ×3 (11:32→12:05)
--- NOTE | 2017-08-17 11:32 | PCM.OPNOTE ---
- General Post-Op/Procedure Note Date of Surgery/Procedure: 08/17/17 Operative Procedure(s): TVH/cystoscopy/anterior vaginal biopsy Findings: 8-10 week uterus, normal appearing ovaries Bilateral patent ureters 1 cm anterior vaginal right sided ulcer-biopsied Pre Op Diagnosis: menorrhagia Post-Op Diagnosis: Same Anesthesia Technique: General ET Tube Primary Surgeon: Stacy Armendariz Fluid Replacement, Intraop: 1,000 EBL in mLs: 150 Complications: none known Condition: Good Free Text/Narrative:: Dictation [id number]
--- NOTE | 2017-08-17 12:18 | PCM.POSTAN ---
POST ANESTHESIA ASSESSMENT - MENTAL STATUS Mental Status: Alert, Oriented - RESPIRATORY Respiratory Status: Respiratory Rate WNL, Airway Patent, O2 Saturation Stable - CARDIOVASCULAR CV Status: Pulse Rate WNL, Blood Pressure Stable - GASTROINTESTINAL GI Status: No Symptoms - PAIN Pain Score: 5 - POST OP HYDRATION Hydration Status: Adequate & Stable - OBSERVATIONS Free Text/Narrative:: no anesthesia problems
[2017-08-17] MEDS: Acetaminophen/oxyCODONE 325-5 MG Tab PO PRN ×2 (15:09→19:42)
--- NOTE | 2017-08-17 17:23 | PCM.SN ---
- Free Text/Narrative Note: Patient is doing well overall, pain is controlled. Explained intraop findings and procedure. VS remain stable. Continue cares.
--- NOTE | 2017-08-17 17:29 | OR ---
SURGEON: Stacy Armendariz M.D. DATE OF PROCEDURE: 08/17/2017 PREOPERATIVE DIAGNOSES: Menorrhagia with associated iron-deficiency anemia vaginal ulcer. POSTOPERATIVE DIAGNOSES: Menorrhagia with associated iron-deficiency anemia vaginal ulcer. PROCEDURES: Total vaginal hysterectomy, cystoscopy, anterior vaginal wall mucosa biopsy. ANESTHESIA: General endotracheal anesthesia. FLUIDS: 1000 mL of crystalloid. ESTIMATED BLOOD LOSS: 150 mL. COMPLICATIONS: None known. FINDINGS: A 6-be-21-week size uterus. Normal-appearing ovaries. Bilateral patent ureters with a fluorescein, 1 cm anterior right-sided vaginal wall mucosal ulcer. DISPOSITION: The patient to recovery room in stable condition. PROCEDURE DETAIL: Devi is a 37-year-old female who has ongoing difficulties with menorrhagia. She actually was hospitalized and underwent blood transfusion just a few months back due to the significant increased blood loss. Since then, she has been on iron therapy. She would like to proceed with definitive intervention in the form of hysterectomy. Proper consent was obtained. The patient was taken to the operating room, where she underwent endotracheal anesthesia, placed in modified dorsal lithotomy position, prepped and draped in the usual sterile fashion. SCDs to lower extremities. Sheridan to gravity. She was prepped and draped in usual sterile fashion. She received clindamycin and Levaquin for preoperative antibiotic. A time-out was performed. A weighted speculum, anterior L[place] sidewall retractors gently placed, cervix grasped with Clay clamp. At this time, it was noted that there was a vaginal ulcer along the right side of the vagina. We will obtain a biopsy of this at the end the case. Once the cervix was grasped with Clay clamp, was circumscribed with Bovie cautery anterior posteriorly, overlying mucosa was dissected sharply and bluntly from underlying peritoneum. The peritoneum was tented downward posteriorly and entered sharply. A longer weighted speculum was replaced with the shorter anteriorly. The anterior cul-de-sac was then entered sharply. Retractors were placed to mobilize the bladder away from operative field. Gely clamps were placed to secure uterosacral ligament on the either side, transected and suture ligated with 2-0 Vicryl. Remainder of the suture will be 2-0 Vicryl unless otherwise mentioned. In serial fashion, remainder of the pedicles were secured including the base of the cardinal ligament, remainder of the cardinal ligament, base of the broad ligament, around the length of the upper portion of the broad ligament, and the utero tubo-ovarian pedicle on either side. The uterus was now removed and handed off to pathology technician. The ovaries were inspected on either side and found to be normal in appearance. The utero tubo-ovarian pedicles are inspected, found to be hemostatic. Sutures trimmed. The uterosacral ligament on either side was plicated to the vaginal apex. The remainder of pedicles were inspected and found to be hemostatic. The cuff was now closed using 0 Vicryl in continuous running locked fashion. The cuff line was then inspected and found to be hemostatic. The anterior vaginal ulcer was now biopsied with Tia. Specimens were sent to pathology. The base was cauterized. The Sheridan catheter balloon was now deflated. The Sheridan catheter was removed. Cystoscope was introduced using normal saline as distention media, was able to visualized the dome of the bladder, was found to be intact, followed by trigone which was also found to be intact. The right ureteral orifice followed by the left ureteral orifice had fluorescein-dyed urine seen streaming from them. The bladder was now drained. The Sheridan catheter was replaced. The cuff line was once again inspected and found to be hemostatic. The patient tolerated the procedure well. She will go to PACU in stable condition. Specimens to pathology. KATHLEEN / FABRICE /[id number] DICK
[2017-08-18] MEDS: Acetaminophen/oxyCODONE 325-5 MG Tab PO PRN ×2 (00:19→05:17)
[2017-08-18 05:32] LABS: CHLORIDE,CL 110 mmol/L (98-110); SODIUM,NA 141 mmol/L (136-146)
--- NOTE | 2017-08-18 08:23 | PCM.SURGPN ---
- General Info Date of Service: 08/18/17 POD#: 1 Functional Status: Reports: Pain Controlled, Tolerating Diet, Ambulating, Urinating - Review of Systems General: Denies: Fever Pulmonary: Denies: Shortness of Breath Cardiovascular: Denies: Chest Pain, Palpitations, Lightheadedness Gastrointestinal: Reports: Flatus. Denies: Abdominal Pain, Nausea, Vomiting Genitourinary: Denies: Flank Pain Psychiatric: Reports: No Symptoms - Patient Data Vitals - Most Recent: Last Vital Signs Temp 37.2 C 08/18/17 07:30 Pulse 76 08/18/17 07:30 Resp 16 08/18/17 07:30 BP 90/47 L 08/18/17 07:30 Pulse Ox 97 08/18/17 07:30 Weight - Most Recent: 65.317 kg I&O - Last 24 Hours: Intake & Output 08/17/17 08/18/17 08/18/17 22:59 06:59 14:59 Intake Total 1604 1200 Output Total 100 1450 Balance 1504 -250 Lab Results Last 24 Hrs: Laboratory Results - last 24 hr 08/17/17 08/17/17 08/17/17 Range/Units 09:20 09:20 09:20 WBC 6.22 (4.0-11.0) K/uL RBC 4.78 (4.30-5.90) M/uL Hgb 12.3 (12.0-16.0) g/dL Hct 39.0 (36.0-46.0) % MCV 81.6 (80.0-98.0) fL MCH 25.7 L (27.0-32.0) pg MCHC 31.5 (31.0-37.0) g/dL RDW Std Deviation 73.6 H (28.0-62.0) fl RDW Coeff of Kenny 25 H (11.0-15.0) % Plt Count 225 (150-400) K/uL Neut % (Auto) (48.0-80.0) % Lymph % (Auto) (16.0-40.0) % [place] % (Auto) (0.0-15.0) % Eos % (Auto) (0.0-7.0) % Baso % (Auto) (0.0-1.5) % Neut # (Auto) (1.4-5.7) K/uL Lymph # (Auto) (0.6-2.4) K/uL [place] # (Auto) (0.0-0.8) K/uL Eos # (Auto) (0.0-0.7) K/uL Baso # (Auto) (0.0-0.1) K/uL Nucleated RBC % 0.0 /100WBC Nucleated RBCs # 0 K/uL Sodium 142 (136-146) mmol/L Potassium 3.9 (3.5-5.1) mmol/L Chloride 111 H (98-110) mmol/L Carbon Dioxide 24 (21-31) mmol/L BUN 9 (6.0-23.0) mg/dL Creatinine 0.6 (0.6-1.5) mg/dL Est Cr Clr Drug Dosing 119.01 mL/min Estimated GFR (MDRD) > 60.0 ml/min Glucose 95 (60-110) mg/dL Calcium 8.7 L (8.8-10.8) mg/dL HCG, Qual NEGATIVE (NEG) Blood Type Antibody Screen 08/17/17 08/18/17 08/18/17 Range/Units 09:20 04:47 04:47 WBC 11.76 H (4.0-11.0) K/uL RBC 4.62 (4.30-5.90) M/uL Hgb 12.0 (12.0-16.0) g/dL Hct 37.7 (36.0-46.0) % MCV 81.6 (80.0-98.0) fL MCH 26.0 L (27.0-32.0) pg MCHC 31.8 (31.0-37.0) g/dL RDW Std Deviation 71.4 H (28.0-62.0) fl RDW Coeff of Kenny 24 H (11.0-15.0) % Plt Count 211 (150-400) K/uL Neut % (Auto) 62.8 (48.0-80.0) % Lymph % (Auto) 24.4 (16.0-40.0) % [place] % (Auto) 11.5 (0.0-15.0) % Eos % (Auto) 0.7 (0.0-7.0) % Baso % (Auto) 0.6 (0.0-1.5) % Neut # (Auto) 7.4 H (1.4-5.7) K/uL Lymph # (Auto) 2.9 H (0.6-2.4) K/uL [place] # (Auto) 1.4 H (0.0-0.8) K/uL Eos # (Auto) 0.1 (0.0-0.7) K/uL Baso # (Auto) 0.1 (0.0-0.1) K/uL Nucleated RBC % 0.0 /100WBC Nucleated RBCs # 0 K/uL Sodium 141 (136-146) mmol/L Potassium 4.3 (3.5-5.1) mmol/L Chloride 110 (98-110) mmol/L Carbon Dioxide 25 (21-31) mmol/L BUN 6 (6.0-23.0) mg/dL Creatinine 0.5 L (0.6-1.5) mg/dL Est Cr Clr Drug Dosing 142.81 mL/min Estimated GFR (MDRD) > 60.0 ml/min Glucose 94 (60-110) mg/dL Calcium 8.3 L (8.8-10.8) mg/dL HCG, Qual (NEG) Blood Type O NEGATIVE Antibody Screen NEGATIVE Med Orders - Current: Current Medications Al Hydroxide/Mg Hydroxide (Mag-Al Plus) 30 ml PO Q4H PRN PRN Reason: Indigestion Belladonna Alkaloids/Opium (B & O Supprettes No. 15a) 1 supp RECTAL Q4H PRN PRN Reason: Pain Last Admin: 08/17/17 11:35 Dose: 1 supp Fentanyl (Sublimaze) 30 mcg IVPUSH Q1H PRN PRN Reason: Pain Stop: 08/18/17 11:16 Lactated Ringer's (Ringers, Lactated) 1,000 mls @ 125 mls/hr IV ASDIRECTED [facility] Last Admin: 08/17/17 08:47 Dose: 125 mls/hr Lactated Ringer's (Ringers, Lactated) 1,000 mls @ 125 mls/hr IV ASDIRECTED [facility] Ketorolac Tromethamine (Toradol) 30 mg IVPUSH Q6H PRN PRN Reason: Pain (severe 7-10) Stop: 08/22/17 11:15 Ondansetron HCl (Zofran) 4 mg IVPUSH Q6H PRN PRN Reason: Nausea/Vomiting Oxycodone/Acetaminophen (Percocet 325-5 Mg) 1 tab PO Q4H PRN PRN Reason: Pain (moderate 4-6) Oxycodone/Acetaminophen (Percocet 325-5 Mg) 2 tab PO Q4H PRN PRN Reason: Pain (moderate 4-6) Last Admin: 08/18/17 05:17 Dose: 2 tab Promethazine HCl (Phenergan) 25 mg IM Q6H PRN PRN Reason: Nausea/Vomiting Scopolamine (Transderm-Scop) 1.5 mg TRDERM Q72H PRN PRN Reason: Nausea Last Admin: 08/17/17 08:53 Dose: 1.5 mg Sodium Chloride (Saline Flush) 10 ml FLUSH ASDIRECTED PRN PRN Reason: Keep Vein Open Sodium Chloride (Saline Flush) 2.5 ml FLUSH ASDIRECTED PRN PRN Reason: Keep Vein Open Discontinued Medications Dexamethasone (Dexamethasone) Confirm Administered Dose 20 mg .ROUTE .STK-MED ONE Stop: 08/17/17 06:49 Fentanyl (Sublimaze) Confirm Administered Dose 100 mcg .ROUTE .STK-MED ONE Stop: 08/17/17 06:38 Fentanyl (Sublimaze) 50 mcg IVPUSH Q5M PRN PRN Reason: Pain (moderate 4-6) Stop: 08/17/17 14:00 Last Admin: 08/17/17 12:05 Dose: 50 mcg Fentanyl (Sublimaze) Confirm Administered Dose 100 mcg .ROUTE .STK-MED ONE Stop: 08/17/17 10:15 Fluorescein Sodium (Ak-Fluor) Confirm Administered Dose 5 ml .ROUTE .STK-MED ONE Stop: 08/17/17 10:11 Levofloxacin/Dextrose 500 mg/ (Premix) 100 mls @ 100 mls/hr IV ONETIME ONE Stop: 08/17/17 05:59 Last Admin: 08/17/17 09:29 Dose: 100 mls/hr Clindamycin Phosphate 900 mg/ (Premix) 50 mls @ 100 mls/hr IV ONETIME ONE Stop: 08/17/17 08:14 Last Admin: 08/17/17 08:48 Dose: 100 mls/hr Ketorolac Tromethamine (Toradol) Confirm Administered Dose 30 mg .ROUTE .STK- MED ONE Stop: 08/17/17 10:14 Ketorolac Tromethamine (Toradol) 30 mg IVPUSH ONETIME ONE Stop: 08/17/17 11:16 Last Admin: 08/17/17 12:41 Dose: Not Given Lidocaine HCl (Xylocaine-Mpf 1%) Confirm Administered Dose 5 ml .ROUTE .STK-MED ONE Stop: 08/17/17 06:49 Midazolam HCl (Versed 1 Mg/Ml) Confirm Administered Dose 2 mg .ROUTE .STK-MED ONE Stop: 08/17/17 06:38 Ondansetron HCl (Zofran) Confirm Administered Dose 4 mg .ROUTE .STK-MED ONE Stop: 08/17/17 06:49 Propofol (Diprivan 20 Ml) Confirm Administered Dose 200 mg .ROUTE .STK-MED ONE Stop: 08/17/17 06:38 Rocuronium [place] (Zemuron) Confirm Administered Dose 100 mg .ROUTE .STK-MED ONE Stop: 08/17/17 06:50 Succinylcholine Chloride (Succinylcholine In Ns Pf) Confirm Administered Dose 200 mg .ROUTE .STK-MED ONE Stop: 08/17/17 06:50 - Exam General: Alert, Oriented Lungs: Normal Respiratory Effort Cardiovascular: Regular Rate, Regular Rhythm GI/Abdominal Exam: Normal Bowel Sounds, Soft, No Distention Extremities: No Pedal Edema. No: Jennifer's Sign Skin: Warm, Dry, Intact Psy/Mental Status: Alert, Normal Affect - Problem List & Annotations (1) Menorrhagia SNOMED Code(s): 977719841 Code(s): N92.0 - EXCESSIVE AND FREQUENT MENSTRUATION WITH REGULAR CYCLE Status: Acute Current Visit: Yes - Problem List Review Problem List Initiated/Reviewed/Updated: Yes - My Orders Last 24 Hours: Active Orders 24 hr Category Date Time Status Patient Status [ADT] Routine ADT 08/17/17 11:15 Active Antiembolic Devices [RC] PER UNIT ROUTINE Care 08/17/17 11:15 Active Notify Provider Intake and Out [RC] ASDIRECTED Care 08/17/17 11:15 Active Notify Provider Vital Signs [RC] ASDIRECTED Care 08/17/17 11:15 Active Oxygen Therapy [RC] ASDIRECTED Care 08/17/17 11:15 Active RT Incentive Spirometry [RC] Q2HWA Care 08/17/17 11:15 Active Ready for Discharge [RC] PER UNIT ROUTINE Care 08/18/17 08:19 Ordered Up With Assistance [RC] PER UNIT ROUTINE Care 08/17/17 11:15 Active Up ad Anahi [RC] PER UNIT ROUTINE Care 08/17/17 11:15 Active Regular Diet [DIET] Diet 08/17/17 Lunch Active Acetaminophen/oxyCODONE [Percocet 325-5 MG] Med 08/17/17 11:15 Active 1 tab PO Q4H PRN Acetaminophen/oxyCODONE [Percocet 325-5 MG] Med 08/17/17 11:15 Active 2 tab PO Q4H PRN Alum Hydrox/Mag Hydrox/Simeth [Mag-Al Plus] Med 08/17/17 11:15 Active 30 ml PO Q4H PRN Belladonna/Opium [B & O Supprettes No. 15A] Med 08/17/17 11:15 Active 1 supp RECTAL Q4H PRN Ketorolac [Toradol] Med 08/17/17 11:15 Active 30 mg IVPUSH Q6H PRN Lactated Ringers [Ringers, Lactated] 1,000 ml Med 08/17/17 08:15 Active IV ASDIRECTED Lactated Ringers [Ringers, Lactated] 1,000 ml Med 08/17/17 11:15 Active IV ASDIRECTED Ondansetron [Zofran] Med 08/17/17 11:15 Active 4 mg IVPUSH Q6H PRN Promethazine [Phenergan] Med 08/17/17 11:15 Active 25 mg IM Q6H PRN Scopolamine [Transderm-Scop] Med 08/17/17 08:42 Active 1.5 mg TRDERM Q72H PRN fentaNYL [Sublimaze] Med 08/17/17 11:15 Active 30 mcg IVPUSH Q1H PRN Peripheral IV Discontinue [OM.PC] Routine Oth 08/17/17 11:15 Ordered Sequential Compression Device [OM.PC] Per Unit Routine Oth 08/17/17 11:15 Ordered Resuscitation Status Routine Resus Stat 08/17/17 11:15 Ordered Medication Orders Al Hydroxide/Mg Hydroxide (Mag-Al Plus) 30 ml PO Q4H PRN PRN Reason: Indigestion Belladonna Alkaloids/Opium (B & O Supprettes No. 15a) 1 supp RECTAL Q4H PRN PRN Reason: Pain Last Admin: 08/17/17 11:35 Dose: 1 supp Fentanyl (Sublimaze) 30 mcg IVPUSH Q1H PRN PRN Reason: Pain Stop: 08/18/17 11:16 Lactated Ringer's (Ringers, Lactated) 1,000 mls @ 125 mls/hr IV ASDIRECTED [facility] Last Admin: 08/17/17 08:47 Dose: 125 mls/hr Lactated Ringer's (Ringers, Lactated) 1,000 mls @ 125 mls/hr IV ASDIRECTED [facility] Ketorolac Tromethamine (Toradol) 30 mg IVPUSH Q6H PRN PRN Reason: Pain (severe 7-10) Stop: 08/22/17 11:15 Ondansetron HCl (Zofran) 4 mg IVPUSH Q6H PRN PRN Reason: Nausea/Vomiting Oxycodone/Acetaminophen (Percocet 325-5 Mg) 1 tab PO Q4H PRN PRN Reason: Pain (moderate 4-6) Oxycodone/Acetaminophen (Percocet 325-5 Mg) 2 tab PO Q4H PRN PRN Reason: Pain (moderate 4-6) Last Admin: 08/18/17 05:17 Dose: 2 tab Admin: 08/18/17 00:19 Dose: 2 tab Admin: 08/17/17 19:42 Dose: 2 tab Admin: 08/17/17 15:09 Dose: 2 tab Promethazine HCl (Phenergan) 25 mg IM Q6H PRN PRN Reason: Nausea/Vomiting Scopolamine (Transderm-Scop) 1.5 mg TRDERM Q72H PRN PRN Reason: Nausea Last Admin: 08/17/17 08:53 Dose: 1.5 mg Sodium Chloride (Saline Flush) 10 ml FLUSH ASDIRECTED PRN PRN Reason: Keep Vein Open Sodium Chloride (Saline Flush) 2.5 ml FLUSH ASDIRECTED PRN PRN Reason: Keep Vein Open - Assessment Assessment (Free Text/Narrative):: POD 1 status post TVH - Plan Plan (Free Text/Narrative):: Patient is feeling very well and would like to go home. VS are stable, labs reassuring. Discharge to home. Follow up at [facility] 2 and 6 weeks. Infection and bleeding warnings reviewed. Discharge instructions reviewed. Rx for percocet sent into [place] pharmacy.
--- NOTE | 2017-08-18 14:51 | PCM48HPAN ---
Post Anesthesia Note - EVALUATION WITHIN 48HRS OF ANESTHETIC Vital Signs in Normal Range: Yes Patient Participated in Evaluation: Yes Respiratory Function Stable: Yes Airway Patent: Yes Cardiovascular Function Stable: Yes Hydration Status Stable: Yes Pain Control Satisfactory: Yes Nausea and Vomiting Control Satisfactory: Yes Mental Status Recovered: Yes Resp Rate: 16
== END 2017-08-18 09:23 | disposition home or self-care (01) ==
LOC: MW.SDS 08:17 → MERGE 08:17 → MW.MS 10:49 → MW.SDS 08-18 09:23
PROVIDERS: ATTEND Obstetrics & Gynecology
DX: N84.0 Polyp of corpus uteri (principal); N87.9 Dysplasia of cervix uteri, unspecified; N76.5 Ulceration of vagina; Z88.1 Allergy status to other antibiotic agents; Z88.8 Allergy status to other drugs, medicaments and biological substances
CPT/HCPCS: 36415; 58260; 80048; 84703; 85025; 85027; 86850; 86900; 86901; A9270; J1100; J1885; J1956; J2250; J2405; J3010; J7120; 00944; 88305; 88307; 88312; J2704

== ENCOUNTER 2017-12-03 15:43 | Emergency (ER) | payer BC ==
[2017-12-03 16:54] LABS: CHLORIDE,CL 110 mmol/L (98-107); SODIUM,NA 145 mmol/L (136-145)
--- NOTE | 2017-12-03 17:03 | EDM.PDOC ---
ED HPI GENERAL MEDICAL PROBLEM - General Chief Complaint: Chest Pain Stated Complaint: CHEST PAIN Time Seen by Provider: 12/03/17 15:50 Source of Information: Reports: Patient History Limitations: Reports: No Limitations - History of Present Illness INITIAL COMMENTS - FREE TEXT/NARRATIVE: HISTORY AND PHYSICAL: History of present illness: [Pt comes to the ER via private vehicle. 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 Female friend brought her to ER. She now feels anxious and admits to have some discomfort in her mid chest. Denies shortness of breath and difficulty breathing. Admits that she has missed several doses of her Keppra and she's run out of her medication. Pharmacy is contacted and verifies that patient picked up a 30 day supply of her medication on October 06. She has not picked up any refills the meantime.] Review of systems: As per history of present illness and below otherwise all systems reviewed and negative. Past medical history: As per history of present illness and as reviewed below otherwise noncontributory. Surgical history: As per history of present illness and as reviewed below otherwise noncontributory. Social history: No reported history of drug or alcohol abuse. Family history: As per history of present illness and as reviewed below otherwise noncontributory. Physical exam: HEENT: Atraumatic, normocephalic. PERRLA. EOMI. Oral mucous membranes are pink and moist. Neck supply and w/o lymphadenopathy or thyromegaly. No oral sores or lesions. Lungs: Clear to auscultation, breath sounds equal bilaterally. Heart: S1S2, regular rate and rhythm. Abdomen: Soft, nondistended, nontender. Negative for masses, guarding and rebound. Pelvis: Stable nontender. Genitourinary: Deferred. Rectal: Deferred. Extremities: Atraumatic, negative for cords or calf pain. No swelling or cyanosis to feet or lower legs. Neurovascular unremarkable. Neuro: Awake, alert, oriented. Cranial nerves II through XII unremarkable. Cerebellum unremarkable. Motor and sensory unremarkable throughout. Exam nonfocal. Psych: Alert & oriented. Makes good eye contact. Appropriate. Good historian. Diagnostics: [CBC, CMP, urinalysis, UDS, TSH, Keppra level, EKG] Impression: [Seizure disorder, noncompliant] Plan: [EKG shows NSR, with a rate of 75. Labs are WNL. Keppra level pending and is a send out. Excuse from work today. May return to work tomorrow without restrictions. Rx given for Keppra 750 mg #60 sig one by mouth twice a day 0 refills. Urged her to be compliant with her medications to prevent further seizures. She is instructed to follow-up with her primary care this week. She is in agreement with today's plan. All questions are answered and concerns are addressed.] Definitive disposition and diagnosis as appropriate pending reevaluation and review of above. chest pain Pain Score (Numeric/FACES): 4 - Related Data Allergies Allergy/AdvReac Type Severity Reaction Status Date / Time Cephalosporins Allergy Difficulty Verified 12/03/17 18:04 Breathing morphine Allergy Difficulty Verified 12/03/17 18:04 Breathing opium alkaloids Allergy Difficulty Uncoded 12/03/17 18:04 Breathing Home Meds: Home Meds Ferrous Gluconate 324 mg PO TID 12/03/17 [History] levETIRAcetam [Levetiracetam] 750 mg PO BID 12/03/17 [History] oxyCODONE HCl/Acetaminophen [Oxycodone-Acetaminophen 5-325] 1 tab PO Q6H PRN 01/13 [History] Past Medical History Respiratory History: Reports: COPD Neurological History: Reports: Seizure - Past Surgical History HEENT Surgical History: Reports: Adenoidectomy, Tonsillectomy GI Surgical History: Reports: Bariatric Procedure Female Surgical History: Reports: Hysterectomy Social & Family History - Family History Family Medical History: Noncontributory - Tobacco Use Smoking Status *Q: Current Every Day Smoker Years of Tobacco use: 17 Packs/Tins Daily: 1 - Recreational Drug Use Recreational Drug Use: No ED ROS GENERAL - Review of Systems Review Of Systems: ROS reveals no pertinent complaints other than HPI. ED EXAM, GENERAL - Physical Exam Exam: See Below Course - Vital Signs Last Recorded V/S: Last Vital Signs Temp 97.6 F 12/03/17 17:50 Pulse 76 12/03/17 17:50 Resp 16 12/03/17 17:50 BP 98/62 12/03/17 17:50 Pulse Ox 98 12/03/17 17:50 - Orders/Labs/Meds Orders: Active Orders 24 hr Category Date Time Status EKG 12 Lead [EKG Documentation Completion] [RC] STAT Care 12/03/17 16:05 Active DRUG SCREEN, URINE [URCHEM] Stat Lab 12/03/17 16:20 Ordered LEVETIRACETAM, S [REF] Stat Lab 12/03/17 16:00 Received UA W/MICROSCOPIC [URIN] Stat Lab 12/03/17 16:20 Ordered Labs: Laboratory Tests 12/03/17 12/03/17 12/03/17 Range/Units 15:52 16:00 16:00 WBC 9.08 (4.0-11.0) K/uL RBC 5.19 (4.30-5.90) M/uL Hgb 14.8 (12.0-16.0) g/dL Hct 43.5 (36.0-46.0) % MCV 83.8 (80.0-98.0) fL MCH 28.5 (27.0-32.0) pg MCHC 34.0 (31.0-37.0) g/dL RDW Std Deviation 52.2 (28.0-62.0) fl RDW Coeff of Kenny 17 H (11.0-15.0) % Plt Count 259 (150-400) K/uL MPV 10.00 (7.40-12.00) fL Neut % (Auto) 60.1 (48.0-80.0) % Lymph % (Auto) 30.9 (16.0-40.0) % [place] % (Auto) 6.6 (0.0-15.0) % Eos % (Auto) 1.8 (0.0-7.0) % Baso % (Auto) 0.6 (0.0-1.5) % Neut # (Auto) 5.5 (1.4-5.7) K/uL Lymph # (Auto) 2.8 H (0.6-2.4) K/uL [place] # (Auto) 0.6 (0.0-0.8) K/uL Eos # (Auto) 0.2 (0.0-0.7) K/uL Baso # (Auto) 0.1 (0.0-0.1) K/uL Nucleated RBC % 0.0 /100WBC Nucleated RBCs # 0 K/uL Sodium 145 (136-145) mmol/L Potassium 3.7 (3.5-5.1) mmol/L Chloride 110 H (98-107) mmol/L Carbon Dioxide 20.3 L (21.0-32.0) mmol/L BUN 13 (7.0-18.0) mg/dL Creatinine 0.6 (0.6-1.0) mg/dL Est Cr Clr Drug Dosing 121.98 mL/min Estimated GFR (MDRD) > 60.0 ml/min Glucose 85 (74-106) mg/dL POC Glucose 77 (60-110) mg/dL Calcium 8.3 L (8.5-10.1) mg/dL Total Bilirubin 0.1 L (0.2-1.0) mg/dL AST 38 H (15-37) IU/L ALT 51 (14-63) IU/L Alkaline Phosphatase 63 (46-116) U/L Troponin I < 0.050 (0.000-0.056) ng/mL Total Protein 6.4 (6.4-8.2) g/dL Albumin 3.6 (3.4-5.0) g/dL Globulin 2.8 (2.0-3.5) g/dL Albumin/Globulin Ratio 1.3 (1.3-2.8) TSH 3rd Generation 0.79 (0.36-3.74) uIU/mL Urine Color Urine Appearance Urine pH (5.0-8.0) Ur Specific [place] (1.001-1.035) Urine Protein (NEGATIVE) mg/dL Urine Glucose (UA) (NEGATIVE) mg/dL Urine Ketones (NEGATIVE) mg/dL Urine Occult Blood (NEGATIVE) Urine Nitrite (NEGATIVE) Urine Bilirubin (NEGATIVE) Urine Urobilinogen (<2.0) EU/dL Ur Leukocyte Esterase (NEGATIVE) Urine RBC (0-2/HPF) Urine WBC (0-5/HPF) Ur Epithelial Cells (NONE-FEW) Urine Bacteria (NEGATIVE) Urine Opiates Screen (NEGATIVE) Ur Oxycodone Screen (NEGATIVE) Urine Methadone Screen (NEGATIVE) Ur Barbiturates Screen (NEGATIVE) Ur Phencyclidine Scrn (NEGATIVE) Ur Amphetamine Screen (NEGATIVE) U Methamphetamines Scrn (NEGATIVE) U Benzodiazepines Scrn (NEGATIVE) U Cocaine Metab Screen (NEGATIVE) U Marijuana (THC) Screen (NEGATIVE) 12/03/17 12/03/17 Range/Units 16:20 16:20 WBC (4.0-11.0) K/uL RBC (4.30-5.90) M/uL Hgb (12.0-16.0) g/dL Hct (36.0-46.0) % MCV (80.0-98.0) fL MCH (27.0-32.0) pg MCHC (31.0-37.0) g/dL RDW Std Deviation (28.0-62.0) fl RDW Coeff of Kenny (11.0-15.0) % Plt Count (150-400) K/uL MPV (7.40-12.00) fL Neut % (Auto) (48.0-80.0) % Lymph % (Auto) (16.0-40.0) % [place] % (Auto) (0.0-15.0) % Eos % (Auto) (0.0-7.0) % Baso % (Auto) (0.0-1.5) % Neut # (Auto) (1.4-5.7) K/uL Lymph # (Auto) (0.6-2.4) K/uL [place] # (Auto) (0.0-0.8) K/uL Eos # (Auto) (0.0-0.7) K/uL Baso # (Auto) (0.0-0.1) K/uL Nucleated RBC % /100WBC Nucleated RBCs # K/uL Sodium (136-145) mmol/L Potassium (3.5-5.1) mmol/L Chloride (98-107) mmol/L Carbon Dioxide (21.0-32.0) mmol/L BUN (7.0-18.0) mg/dL Creatinine (0.6-1.0) mg/dL Est Cr Clr Drug Dosing mL/min Estimated GFR (MDRD) ml/min Glucose (74-106) mg/dL POC Glucose (60-110) mg/dL Calcium (8.5-10.1) mg/dL Total Bilirubin (0.2-1.0) mg/dL AST (15-37) IU/L ALT (14-63) IU/L Alkaline Phosphatase (46-116) U/L Troponin I (0.000-0.056) ng/mL Total Protein (6.4-8.2) g/dL Albumin (3.4-5.0) g/dL Globulin (2.0-3.5) g/dL Albumin/Globulin Ratio (1.3-2.8) TSH 3rd Generation (0.36-3.74) uIU/mL Urine Color YELLOW Urine Appearance CLEAR Urine pH 6.0 (5.0-8.0) Ur Specific [place] 1.025 (1.001-1.035) Urine Protein NEGATIVE (NEGATIVE) mg/dL Urine Glucose (UA) NEGATIVE (NEGATIVE) mg/dL Urine Ketones 15 H (NEGATIVE) mg/dL Urine Occult Blood NEGATIVE (NEGATIVE) Urine Nitrite NEGATIVE (NEGATIVE) Urine Bilirubin NEGATIVE (NEGATIVE) Urine Urobilinogen 0.2 (<2.0) EU/dL Ur Leukocyte Esterase NEGATIVE (NEGATIVE) Urine RBC 0-1 (0-2/HPF) Urine WBC 0-1 (0-5/HPF) Ur Epithelial Cells OCCASIONAL (NONE-FEW) Urine Bacteria 1+ H (NEGATIVE) Urine Opiates Screen NEGATIVE (NEGATIVE) Ur Oxycodone Screen NEGATIVE (NEGATIVE) Urine Methadone Screen NEGATIVE (NEGATIVE) Ur Barbiturates Screen NEGATIVE (NEGATIVE) Ur Phencyclidine Scrn NEGATIVE (NEGATIVE) Ur Amphetamine Screen NEGATIVE (NEGATIVE) U Methamphetamines Scrn NEGATIVE (NEGATIVE) U Benzodiazepines Scrn NEGATIVE (NEGATIVE) U Cocaine Metab Screen NEGATIVE (NEGATIVE) U Marijuana (THC) Screen NEGATIVE (NEGATIVE) Departure - Departure Time of Disposition: 17:30 Disposition: Home, Self-Care 01 Condition: Good Clinical Impression: Seizure disorder Instructions: Seizure, Adult, [id number] Referrals: PCP,None [Primary Care Provider] - Forms: ED Department Discharge Additional Instructions: The following information is given to patients seen in the emergency department who are being discharged to home. This information is to outline your options for follow-up care. We provide all patients seen in our emergency department with a follow-up referral. The need for follow-up, as well as the timing and circumstances, are variable depending upon the specifics of your emergency department visit. If you don't have a primary care physician on staff, we will provide you with a referral. We always advise you to contact your personal physician following an emergency department visit to inform them of the circumstance of the visit and for follow-up with them and/or the need for any referrals to a consulting specialist. The emergency department will also refer you to a specialist when appropriate. This referral assures that you have the opportunity for follow-up care with a specialist. All of these measure are taken in an effort to provide you with optimal care, which includes your follow-up. Under all circumstances we always encourage you to contact your private physician who remains a resource for coordinating your care. When calling for follow-up care, please make the office aware that this follow-up is from your recent emergency room visit. If for any reason you are refused follow-up, please contact the [facility] emergency department at and asked to speak to the emergency department charge nurse. [facility] Primary Care [address] [place] [id number] Establish care with a local primary care provider in follow-up there in the next 5 days. Take all medications as prescribed. Return to ER as needed as discussed. - My Orders Last 24 Hours: My Active Orders 12/03/17 16:00 LEVETIRACETAM, S [REF] Stat 12/03/17 16:05 EKG 12 Lead [EKG Documentation Completion] [RC] STAT 12/03/17 16:20 DRUG SCREEN, URINE [URCHEM] Stat UA W/MICROSCOPIC [URIN] Stat - Assessment/Plan Last 24 Hours: My Active Orders 12/03/17 16:00 LEVETIRACETAM, S [REF] Stat 12/03/17 16:05 EKG 12 Lead [EKG Documentation Completion] [RC] STAT 12/03/17 16:20 DRUG SCREEN, URINE [URCHEM] Stat UA W/MICROSCOPIC [URIN] Stat
== END 2017-12-03 17:49 | disposition home or self-care (01) ==
LOC: MERGE 15:43 → MW.ED 15:43
DX: G40.909 Epilepsy, unspecified, not intractable, without status epilepticus (principal); J44.9 Chronic obstructive pulmonary disease, unspecified; F17.210 Nicotine dependence, cigarettes, uncomplicated; Z88.5 Allergy status to narcotic agent
CPT/HCPCS: 36415; 80053; 80177; 80305; 81001; 82962; 84443; 84484; 85025; 93005; 99284; 99284-25

== ENCOUNTER 2018-08-21 16:27 | Emergency (ER) | payer BC ==
--- NOTE | 2018-08-21 16:46 | EDM.PDOC ---
ED HPI GENERAL MEDICAL PROBLEM - General Chief Complaint: Cardiovascular Problem Stated Complaint: SOB Time Seen by Provider: 08/21/18 16:41 - History of Present Illness INITIAL COMMENTS - FREE TEXT/NARRATIVE: HISTORY AND PHYSICAL: History of present illness: Patient 38-year-old white female presents with chest pain this is vaguely described without associated short of breath nausea vomiting or palpitations. She denies trauma denies fever chills or other concern she denies history of pulmonary embolus or DVT she denies drugs Review of systems: As per history of present illness and below otherwise all systems reviewed and negative. Past medical history: As per history of present illness and as reviewed below otherwise noncontributory. Surgical history: As per history of present illness and as reviewed below otherwise noncontributory. Social history: No reported history of drug or alcohol abuse. Family history: As per history of present illness and as reviewed below otherwise noncontributory. Physical exam: HEENT: Atraumatic, normocephalic, pupils reactive, negative for conjunctival pallor or scleral icterus, mucous membranes moist, throat clear, neck supple, nontender, trachea midline. Lungs: Clear to auscultation, breath sounds equal bilaterally, chest nontender. Heart: S1S2, regular, negative for clicks, rubs, or JVD. Abdomen: Soft, nondistended, nontender. Negative for masses or hepatosplenomegaly. Negative for costovertebral tenderness. Pelvis: Stable nontender. Genitourinary: Deferred. Rectal: Deferred. Extremities: Atraumatic, negative for cords or calf pain. Neurovascular unremarkable. Neuro: Awake, alert, oriented. Cranial nerves II through XII unremarkable. Cerebellum unremarkable. Motor and sensory unremarkable throughout. Exam nonfocal. 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 chest/ body aches Pain Score (Numeric/FACES): 9 - Related Data Allergies Allergy/AdvReac Type Severity Reaction Status Date / Time red dye Allergy Severe Anaphylactic Verified 08/21/18 16:35 Shock cephalexin Allergy Rash Verified 08/21/18 16:35 Cephalosporins Allergy Difficulty Verified 08/21/18 16:35 Breathing meperidine [From Demerol] Allergy Rash Verified 08/21/18 16:35 morphine Allergy Tachycardia Verified 08/21/18 16:35 Opioids - Morphine Analogues Allergy Tachycardia Verified 08/21/18 16:35 opium alkaloids Allergy Difficulty Uncoded 08/21/18 16:35 Breathing Home Meds: Home Meds levETIRAcetam [Keppra] 750 mg PO BID 30 Days #60 tablet 06/10/17 [Rx] Multivitamin with Minerals [Hair, Skin and Nails] 1 tab PO DAILY 08/12/17 [ History] Ferrous Gluconate 324 mg PO TID 12/03/17 [History] Past Medical History HEENT History: Reports: None, Other (See Below) Other HEENT History: sinus polyps Cardiovascular History: Reports: None Respiratory History: Reports: Asthma, Bronchitis, Recurrent, COPD Gastrointestinal History: Reports: Cholelithiasis, Hemorrhoids, Irritable Bowel Syndrome Other Gastrointestinal History: hx gastric ulcer Genitourinary History: Reports: None, Other (See Below) Other Genitourinary History: HPV 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: Reports: Dysfunctional Uterine Bleeding, Other (See Below), Musculoskeletal History: Reports: Arthritis, Back Pain, Chronic, Fibromyalgia, Other (See Below) Other Musculoskeletal History: scoliosis Neurological History: Reports: Head Trauma, Migraines, Seizure Psychiatric History: Reports: Anxiety, None, Panic Attack Endocrine/Metabolic History: Reports: None, Other (See Below) Other Endocrine/Metabolic History: hypoglycemia Hematologic History: Reports: Anemia, Blood Transfusion(s), Transfusion Reaction Other Hematologic History: states had some sort of reaction with first blood transfusion 5 yrs ago, but unsure what it was Oncologic (Cancer) History: Reports: None Dermatologic History: Reports: None - Infectious Disease History Infectious Disease History: Reports: Chicken Pox - Past Surgical History Head Surgeries/Procedures: Reports: None GI Surgical History: Reports: Bariatric Procedure, Cholecystectomy - History Comment History Comment: Identical twin, 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 Social & Family History - Family History Family Medical History: Noncontributory - Tobacco Use Smoking Status *Q: Current Every Day Smoker Years of Tobacco use: 21 Packs/Tins Daily: 1 - Caffeine Use Caffeine Use: Reports: Soda - Recreational Drug Use Recreational Drug Use: No - Living Situation & Occupation Living situation: Reports: (same sex partner) Occupation: Employed ([employer]) [employer] - Review of Systems Review Of Systems: ROS reveals no pertinent complaints other than HPI. ED EXAM, GENERAL - Physical Exam Exam: See Below (The dictation) Course - Vital Signs Last Recorded V/S: Last Vital Signs Temp 36.0 C 08/21/18 16:30 Pulse 74 08/21/18 16:30 Resp 18 08/21/18 16:30 BP 122/75 08/21/18 16:30 Pulse Ox 100 08/21/18 16:30 - Orders/Labs/Meds Orders: Active Orders 24 hr Category Date Time Status EKG Documentation Completion [RC] STAT Care 08/21/18 16:44 Ordered Chest 1V Frontal [CR] Stat Exams 08/21/18 16:44 Ordered CBC WITH AUTO DIFF [HEME] Stat Lab 08/21/18 16:44 Ordered COMPREHENSIVE METABOLIC PN,CMP [CHEM] Stat Lab 08/21/18 16:44 Ordered DRUG SCREEN, URINE [URCHEM] Stat Lab 08/21/18 16:44 Ordered TROPONIN I [CHEM] Stat Lab 08/21/18 16:44 Ordered Departure - Departure Time of Disposition: 16:46 Disposition: Home, Self-Care 01 Condition: Good Clinical Impression: Atypical chest pain Referrals: Jennifer Dill PA [Primary Care Provider] - Additional Instructions: The following information is given to patients seen in the emergency department who are being discharged to home. This information is to outline your options for follow-up care. We provide all patients seen in our emergency department with a follow-up referral. The need for follow-up, as well as the timing and circumstances, are variable depending upon the specifics of your emergency department visit. If you don't have a primary care physician on staff, we will provide you with a referral. We always advise you to contact your personal physician following an emergency department visit to inform them of the circumstance of the visit and for follow-up with them and/or the need for any referrals to a consulting specialist. The emergency department will also refer you to a specialist when appropriate. This referral assures that you have the opportunity for followup care with a specialist. All of these measure are taken in an effort to provide you with optimal care, which includes your followup. Under all circumstances we always encourage you to contact your private physician who remains a resource for coordinating your care. When calling for followup care, please make the office aware that this follow-up is from your recent emergency room visit. If for any reason you are refused follow-up, please contact the [facility] emergency department at and asked to speak to the emergency department charge nurse. Follow primary medical doctor as discussed return as needed as discussed - My Orders Last 24 Hours: My Active Orders 08/21/18 16:44 EKG Documentation Completion [RC] STAT Chest 1V Frontal [CR] Stat CBC WITH AUTO DIFF [HEME] Stat COMPREHENSIVE METABOLIC PN,CMP [CHEM] Stat DRUG SCREEN, URINE [URCHEM] Stat TROPONIN I [CHEM] Stat - Assessment/Plan Last 24 Hours: My Active Orders 08/21/18 16:44 EKG Documentation Completion [RC] STAT Chest 1V Frontal [CR] Stat CBC WITH AUTO DIFF [HEME] Stat COMPREHENSIVE METABOLIC PN,CMP [CHEM] Stat DRUG SCREEN, URINE [URCHEM] Stat TROPONIN I [CHEM] Stat
[2018-08-21 17:32] LABS: CHLORIDE,CL 95 mmol/L (98-107); SODIUM,NA 131 mmol/L (136-145)
--- NOTE | 2018-08-21 18:39 | CR ---
INDICATION: Pain. Shortness of breath. TECHNIQUE: AP portable chest x-ray. COMPARISON: 08/21/2018. FINDINGS: The heart size is normal. Right lung clear without infiltrate or consolidation. Minimal opacity left lung base laterally is hazy and may be related atelectasis. Left lung otherwise clear. Mild scoliosis. Chest otherwise unremarkable. Dictated by Eliseo Plunkett MD @ Aug 21 2018 6:37PM Signed by Dr. Eliseo Plunkett @ Aug 21 2018 6:38PM
== END 2018-08-21 19:15 | disposition home or self-care (01) ==
LOC: MW.ED 16:27
DX: R07.89 Other chest pain (principal); F17.210 Nicotine dependence, cigarettes, uncomplicated; Z88.5 Allergy status to narcotic agent
CPT/HCPCS: 36415; 71045; 71045-26; 80053; 80305-QW; 84484; 85025; 93005; 99283-25; 99284

== ENCOUNTER 2018-09-16 10:59 | Emergency (ER) | payer BC ==
--- NOTE | 2018-09-16 11:13 | EDM.PDOC ---
ED HPI GENERAL MEDICAL PROBLEM - General Chief Complaint: General Stated Complaint: SWELLING Time Seen by Provider: 09/16/18 11:00 Source of Information: Reports: Patient History Limitations: Reports: No Limitations - History of Present Illness INITIAL COMMENTS - FREE TEXT/NARRATIVE: HISTORY AND PHYSICAL: History of present illness: Patient is a 38-year-old female who presents to the ED today with bilateral lower leg edema. Patient states the swelling started over the past week and is progressively worsening. She states she also feels short of breath having a cough for the past 3 days.Patient states she's never had this happen to her prior. Patient denies any recent life events that she can relate to causing this. Patient does express some nausea without vomiting or diarrhea. She denies any recent illness. Patient does smoke about a pack a day for over 15 years. Patient states she does have a history of a seizure disorder which has been controlled over the past several months. She states she also has COPD and asthma. Patient denies fever, chills, chest pain, palpitations, diaphoresis, pain in either arm, abdominal pain, burning with urination, or no other GI, , cardiovascular, or respiratory concerns. Review of systems: As per history of present illness and below otherwise all systems reviewed and negative. Past medical history: As per history of present illness and as reviewed below otherwise noncontributory. Surgical history: As per history of present illness and as reviewed below otherwise noncontributory. Social history: No reported history of drug or alcohol abuse. Family history: As per history of present illness and as reviewed below otherwise noncontributory. Physical exam: General: Patient sitting comfortably in no acute distress and nontoxic appearing HEENT: Atraumatic, normocephalic, pupils reactive, negative for conjunctival pallor or scleral icterus, mucous membranes moist, throat clear, neck supple, nontender, trachea midline. No meningeal signs. Lungs: Clear to auscultation, breath sounds equal bilaterally, chest nontender. Heart: S1S2, regular, negative for clicks, rubs, or overt murmur. Patient is able to lay back fully without difficulty. Negative JVD. Abdomen: Soft, nondistended, nontender. Negative for masses or hepatosplenomegaly. Negative for costovertebral tenderness. No rigidity, rebound , guarding. Pelvis: Stable nontender. Genitourinary: Deferred. Rectal: Deferred. Extremities: Patient does have 3+ pitting edema bilaterally of her lower extremities up to her knees. Cap refill less than 2 seconds. Dorsalis pedis and posterior tibial pulses are grossly intact. Atraumatic, negative for cords or calf pain. Neurovascular unremarkable. Neuro: Awake, alert, oriented. Cranial nerves II through XII unremarkable. Cerebellum unremarkable. Motor and sensory unremarkable throughout. Exam nonfocal. Notes: On exam, patient does have pitting edema. Will do lab work and imaging. Patient does have transaminitis on lab work. Discussed these findings with patient and offered admission but patient declines. Discussed the importance for close follow-up with her primary care provider as well as repeat lab work. Supportive care measures were reviewed and discussed with patient and she is agreeable to plan of care at this time without any questions or concerns. Diagnostics: CBC, CMP, UA, EKG, chest x-ray, BNP, troponin, lower extremity venous ultrasound bilateral, limited abdominal liver Therapeutics: None Prescriptions: Lasix Impression: Lower extremity edema, bilateral Transaminitis Plan: 1. Take medications as prescribed. 2. Elevate her feet and apply compression stockings to help decrease swelling. 3. Eat a low-salt diet to help decrease swelling. 4. Follow-up with your primary care provider and repeat lab work as discussed 5. Return to ED as needed as discussed. Definitive disposition and diagnosis as appropriate pending reevaluation and review of above. bilateral extremities Pain Score (Numeric/FACES): 7 - Related Data Allergies Allergy/AdvReac Type Severity Reaction Status Date / Time red dye Allergy Severe Anaphylactic Verified 08/21/18 16:35 Shock cephalexin Allergy Rash Verified 08/21/18 16:35 Cephalosporins Allergy Difficulty Verified 08/21/18 16:35 Breathing meperidine [From Demerol] Allergy Rash Verified 08/21/18 16:35 morphine Allergy Tachycardia Verified 08/21/18 16:35 Opioids - Morphine Analogues Allergy Tachycardia Verified 08/21/18 16:35 opium alkaloids Allergy Difficulty Uncoded 08/21/18 16:35 Breathing Home Meds: Home Meds levETIRAcetam [Keppra] 750 mg PO BID 30 Days #60 tablet 06/10/17 [Rx] Past Medical History HEENT History: Reports: None, Other (See Below) Other HEENT History: sinus polyps Cardiovascular History: Reports: None Respiratory History: Reports: Asthma, Bronchitis, Recurrent, COPD Gastrointestinal History: Reports: Cholelithiasis, Hemorrhoids, Irritable Bowel Syndrome Other Gastrointestinal History: hx gastric ulcer Genitourinary History: Reports: None, Other (See Below) Other Genitourinary History: HPV 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: Dysfunctional Uterine Bleeding, Other (See Below), Musculoskeletal History: Reports: Arthritis, Back Pain, Chronic, Fibromyalgia, Other (See Below) Other Musculoskeletal History: scoliosis Neurological History: Reports: Head Trauma, Migraines, Seizure Psychiatric History: Reports: Anxiety, None, Panic Attack Endocrine/Metabolic History: Reports: None, Other (See Below) Other Endocrine/Metabolic History: hypoglycemia Hematologic History: Reports: Anemia, Blood Transfusion(s), Transfusion Reaction Other Hematologic History: states had some sort of reaction with first blood transfusion 5 yrs ago, but unsure what it was Oncologic (Cancer) History: Reports: None Dermatologic History: Reports: None - Infectious Disease History Infectious Disease History: Reports: Chicken Pox - Past Surgical History Head Surgeries/Procedures: Reports: None GI Surgical History: Reports: Bariatric Procedure, Cholecystectomy - History Comment History Comment: Identical twin, 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 Social & Family History - Family History Family Medical History: Noncontributory - Caffeine Use Caffeine Use: Reports: Soda - Living Situation & Occupation Living situation: Reports: (same sex partner) Occupation: Employed ([employer]) ED ROS GENERAL - Review of Systems Review Of Systems: ROS reveals no pertinent complaints other than HPI. ED EXAM, GENERAL - Physical Exam Exam: See Below (See dictation) Course - Vital Signs Last Recorded V/S: Last Vital Signs Temp 97.1 F 09/16/18 11:08 Pulse 95 09/16/18 11:08 Resp 20 09/16/18 11:08 BP 107/60 09/16/18 11:08 Pulse Ox 95 09/16/18 11:08 - Orders/Labs/Meds Orders: Active Orders 24 hr Category Date Time Status EKG Documentation Completion [RC] STAT Care 09/16/18 11:28 Active RT Aerosol Therapy [RC] ASDIRECTED Care 09/16/18 11:29 Active Labs: Laboratory Tests 09/16/18 09/16/18 09/16/18 Range/Units 11:22 11:22 11:22 WBC 7.43 (4.0-11.0) K/uL RBC 4.78 (4.30-5.90) M/uL Hgb 14.8 (12.0-16.0) g/dL Hct 43.1 (36.0-46.0) % MCV 90.2 (80.0-98.0) fL MCH 31.0 (27.0-32.0) pg MCHC 34.3 (31.0-37.0) g/dL RDW Std Deviation 55.8 (28.0-62.0) fl RDW Coeff of Kenny 17 H (11.0-15.0) % Plt Count 124 L (150-400) K/uL MPV 10.50 (7.40-12.00) fL Neut % (Auto) 56.8 (48.0-80.0) % Lymph % (Auto) 29.2 (16.0-40.0) % [place] % (Auto) 10.9 (0.0-15.0) % Eos % (Auto) 2.6 (0.0-7.0) % Baso % (Auto) 0.5 (0.0-1.5) % Neut # (Auto) 4.2 (1.4-5.7) K/uL Lymph # (Auto) 2.2 (0.6-2.4) K/uL [place] # (Auto) 0.8 (0.0-0.8) K/uL Eos # (Auto) 0.2 (0.0-0.7) K/uL Baso # (Auto) 0.0 (0.0-0.1) K/uL Nucleated RBC % 0.0 /100WBC Nucleated RBCs # 0 K/uL Sodium 144 (136-145) mmol/L Potassium 4.0 (3.5-5.1) mmol/L Chloride 109 H (98-107) mmol/L Carbon Dioxide 28.8 (21.0-32.0) mmol/L BUN 7 (7.0-18.0) mg/dL Creatinine 0.4 L (0.6-1.0) mg/dL Est Cr Clr Drug Dosing 182.53 mL/min Estimated GFR (MDRD) > 60.0 ml/min Glucose 77 (74-106) mg/dL Calcium 8.2 L (8.5-10.1) mg/dL Total Bilirubin 0.2 (0.2-1.0) mg/dL AST 139 H (15-37) IU/L ALT 144 H (14-63) IU/L Alkaline Phosphatase 58 (46-116) U/L Troponin I (0.000-0.056) ng/mL B-Natriuretic Peptide 19 (<100) PG/ML Total Protein 5.4 L (6.4-8.2) g/dL Albumin 3.0 L (3.4-5.0) g/dL Globulin 2.4 L (2.6-4.0) g/dL Albumin/Globulin Ratio 1.3 (0.9-1.6) Urine Color Urine Appearance Urine pH (5.0-8.0) Ur Specific [place] (1.001-1.035) Urine Protein (NEGATIVE) mg/dL Urine Glucose (UA) (NEGATIVE) mg/dL Urine Ketones (NEGATIVE) mg/dL Urine Occult Blood (NEGATIVE) Urine Nitrite (NEGATIVE) Urine Bilirubin (NEGATIVE) Urine Urobilinogen (<2.0) EU/dL Ur Leukocyte Esterase (NEGATIVE) 09/16/18 09/16/18 Range/Units 11:22 13:36 WBC (4.0-11.0) K/uL RBC (4.30-5.90) M/uL Hgb (12.0-16.0) g/dL Hct (36.0-46.0) % MCV (80.0-98.0) fL MCH (27.0-32.0) pg MCHC (31.0-37.0) g/dL RDW Std Deviation (28.0-62.0) fl RDW Coeff of Kenny (11.0-15.0) % Plt Count (150-400) K/uL MPV (7.40-12.00) fL Neut % (Auto) (48.0-80.0) % Lymph % (Auto) (16.0-40.0) % [place] % (Auto) (0.0-15.0) % Eos % (Auto) (0.0-7.0) % Baso % (Auto) (0.0-1.5) % Neut # (Auto) (1.4-5.7) K/uL Lymph # (Auto) (0.6-2.4) K/uL [place] # (Auto) (0.0-0.8) K/uL Eos # (Auto) (0.0-0.7) K/uL Baso # (Auto) (0.0-0.1) K/uL Nucleated RBC % /100WBC Nucleated RBCs # K/uL Sodium (136-145) mmol/L Potassium (3.5-5.1) mmol/L Chloride (98-107) mmol/L Carbon Dioxide (21.0-32.0) mmol/L BUN (7.0-18.0) mg/dL Creatinine (0.6-1.0) mg/dL Est Cr Clr Drug Dosing mL/min Estimated GFR (MDRD) ml/min Glucose (74-106) mg/dL Calcium (8.5-10.1) mg/dL Total Bilirubin (0.2-1.0) mg/dL AST (15-37) IU/L ALT (14-63) IU/L Alkaline Phosphatase (46-116) U/L Troponin I < 0.050 (0.000-0.056) ng/mL B-Natriuretic Peptide (<100) PG/ML Total Protein (6.4-8.2) g/dL Albumin (3.4-5.0) g/dL Globulin (2.6-4.0) g/dL Albumin/Globulin Ratio (0.9-1.6) Urine Color YELLOW Urine Appearance CLEAR Urine pH 7.0 (5.0-8.0) Ur Specific [place] 1.015 (1.001-1.035) Urine Protein NEGATIVE (NEGATIVE) mg/dL Urine Glucose (UA) NEGATIVE (NEGATIVE) mg/dL Urine Ketones NEGATIVE (NEGATIVE) mg/dL Urine Occult Blood NEGATIVE (NEGATIVE) Urine Nitrite NEGATIVE (NEGATIVE) Urine Bilirubin NEGATIVE (NEGATIVE) Urine Urobilinogen 4.0 H (<2.0) EU/dL Ur Leukocyte Esterase NEGATIVE (NEGATIVE) Meds: Medications Discontinued Medications Generic Name Dose Route Start Last Admin Trade Name Freq PRN Reason Stop Dose Admin Albuterol/Ipratropium 3 ml 09/16/18 11:29 09/16/18 11:51 Duoneb 3.0-0.5 Mg/3 Ml NEB 09/16/18 11:30 3 ml ONETIME ONE Administration Departure - Departure Time of Disposition: 15:45 Disposition: Home, Self-Care 01 Clinical Impression: Lower extremity edema, Transaminitis - Discharge Information Referrals: Jennifer Dill PA [Primary Care Provider] - Forms: ED Department Discharge Additional Instructions: The following information is given to patients seen in the emergency department who are being discharged to home. This information is to outline your options for follow-up care. We provide all patients seen in our emergency department with a follow-up referral. The need for follow-up, as well as the timing and circumstances, are variable depending upon the specifics of your emergency department visit. If you don't have a primary care physician on staff, we will provide you with a referral. We always advise you to contact your personal physician following an emergency department visit to inform them of the circumstance of the visit and for follow-up with them and/or the need for any referrals to a consulting specialist. The emergency department will also refer you to a specialist when appropriate. This referral assures that you have the opportunity for follow-up care with a specialist. All of these measure are taken in an effort to provide you with optimal care, which includes your follow-up. Under all circumstances we always encourage you to contact your private physician who remains a resource for coordinating your care. When calling for follow-up care, please make the office aware that this follow-up is from your recent emergency room visit. If for any reason you are refused follow-up, please contact the [facility] Emergency Department at and asked to speak to the emergency department charge nurse. [facility] [address] [place] [id number] [address] 1. Take medications as prescribed. 2. Elevate her feet and apply compression stockings to help decrease swelling. 3. Eat a low-salt diet to help decrease swelling. 4. Follow-up with your primary care provider and repeat lab work as discussed 5. Return to ED as needed as discussed. - My Orders Last 24 Hours: My Active Orders 09/16/18 11:28 EKG Documentation Completion [RC] STAT 09/16/18 11:29 RT Aerosol Therapy [RC] ASDIRECTED - Assessment/Plan Last 24 Hours: My Active Orders 09/16/18 11:28 EKG Documentation Completion [RC] STAT 09/16/18 11:29 RT Aerosol Therapy [RC] ASDIRECTED
[2018-09-16] MEDS ORDERED: Albuterol/Ipratropium 3.0-0.5 MG/3 ML Neb Soln NEB ONE (11:29)
[2018-09-16 11:51] LABS: CHLORIDE,CL 109 mmol/L (98-107); SODIUM,NA 144 mmol/L (136-145)
--- NOTE | 2018-09-16 12:18 | CR ---
EXAMINATION: Two-view chest (PA and Lateral views). HISTORY: Shortness of breath. FINDINGS: The trachea is midline. The cardiomediastinal silhouette is within normal limits. No pulmonary infiltrates, effusions or pneumothorax. Osseous structures appear unremarkable. IMPRESSION: No acute cardiopulmonary process.
--- NOTE | 2018-09-16 15:07 | US ---
ULTRASOUND EXAMINATION OF the left lower extremity WITH DOPPLER HISTORY: Pain FINDINGS: Examination of the left leg was performed from the groin to the calf region. All visualized segments including common femoral, proximal greater saphenous, superficial femoral, popliteal and calf veins appear patent with good compressibility and augmentation. There is no evidence of deep vein thrombosis. IMPRESSION: No evidence of a DVT.
--- NOTE | 2018-09-16 15:16 | US ---
ULTRASOUND EXAMINATION OF the right lower extremity WITH DOPPLER HISTORY: Pain FINDINGS: Examination of the right leg was performed from the groin to the calf region. All visualized segments including common femoral, proximal greater saphenous, superficial femoral, popliteal and calf veins appear patent with good compressibility and augmentation. There is no evidence of deep vein thrombosis. IMPRESSION: No evidence of a DVT.
--- NOTE | 2018-09-16 15:20 | US ---
EXAMINATION: Right upper quadrant ultrasound HISTORY: Rule out thrombus COMPARISON: None TECHNIQUE: Grayscale, color Doppler, spectral Doppler imaging obtained of the right upper quadrant. FINDINGS: Visualized pancreas appears normal. The liver is mildly increased in generalized echotexture without a focal hepatic mass. Cholecystectomy. Normal portal venous waveforms without evidence of a thrombus. Right kidney measures 13.5 cm [id number] without evidence of hydronephrosis. IMPRESSION: 1. Mild fatty infiltration of liver. 2. No evidence of a portal venous thrombus.
== END 2018-09-16 16:06 | disposition home or self-care (01) ==
LOC: MW.ED 10:59
DX: R60.9 Edema, unspecified (principal); R74.0 Nonspecific elevation of levels of transaminase and lactic acid dehydrogenase [LDH]; J44.9 Chronic obstructive pulmonary disease, unspecified; Z91.041 Radiographic dye allergy status; Z88.1 Allergy status to other antibiotic agents; Z88.5 Allergy status to narcotic agent
CPT/HCPCS: 36415; 71046; 71046-26; 76705; 76705-26; 80053; 81003; 83880; 84484; 85025; 93005; 93971-26-LT; 93971-26-RT; 93971-LT; 93971-RT; 94640; 99284-25; J7620-GY

== ENCOUNTER 2019-01-03 15:55 | Emergency (ER) | payer BC ==
--- NOTE | 2019-01-03 15:59 | EDM.PDOC ---
ED HPI GENERAL MEDICAL PROBLEM - General Stated Complaint: SOB VOMITING BLOOD Time Seen by Provider: 01/03/19 15:56 Source of Information: Reports: Patient History Limitations: Reports: No Limitations - History of Present Illness INITIAL COMMENTS - FREE TEXT/NARRATIVE: History of present illness: []Patient's had 2 weeks of coughing with intermittent episodes of coughing up blood, shortness of breath, Upper abdominal pain and a painful lesion on her vagina. Patient denies any fevers, chills, vomiting or diarrhea. She is status post cholecystectomy. Review of systems: As per history of present illness and below otherwise all systems reviewed and negative. Past medical history: As per history of present illness and as reviewed below otherwise noncontributory. Surgical history: As per history of present illness and as reviewed below otherwise noncontributory. Social history: No reported history of drug or alcohol abuse. Family history: As per history of present illness and as reviewed below otherwise noncontributory. Physical exam: General: Well developed, well nourished in NAD HEENT: Atraumatic, normocephalic, pupils reactive, negative for conjunctival pallor or scleral icterus, mucous membranes moist, throat clear, neck supple, nontender, trachea midline. Lungs: Clear to auscultation, breath sounds equal bilaterally, chest nontender. Heart: S1S2, regular, negative for clicks, rubs, or JVD. Abdomen: NABS, Soft, nondistended, mild tenderness upper abdomen without rebound or guarding. Negative for masses or hepatosplenomegaly. Negative for costovertebral tenderness. Pelvis: Stable nontender. Genitourinary: The left groin has a open chronic appearing 0.5-1 cm deep ulceration with granulation tissue at the base. Rectal: Deferred. Extremities: Atraumatic, negative for cords or calf pain. Neurovascular unremarkable. Neuro: Awake, alert, oriented. Cranial nerves II through XII unremarkable. Cerebellum unremarkable. Motor and sensory unremarkable throughout. Exam nonfocal. Skin:warm and dry Diagnostics: CBC, chemistry, lipase, chest x-ray, type and screen, ultrasound abdomen limited - Therapeutics: IV hydration, Zofran, potassium ED Course: Stable Impression: Elevated over function tests with a normal common bile duct UTI Mild Hypokalemia Prescriptions: Zofran, nitrofurantoin Plan: Take meds as directed Follow up with [facility] and/or general surgery, return if symptoms worsen or change. Definitive disposition and diagnosis as appropriate pending reevaluation and review of above. labia Pain Score (Numeric/FACES): 10 - Related Data Allergies Allergy/AdvReac Type Severity Reaction Status Date / Time red dye Allergy Severe Anaphylactic Verified 01/03/19 16:02 Shock cephalexin Allergy Rash Verified 01/03/19 16:02 Cephalosporins Allergy Difficulty Verified 01/03/19 16:02 Breathing meperidine [From Demerol] Allergy Rash Verified 01/03/19 16:02 morphine Allergy Tachycardia Verified 01/03/19 16:02 Opioids - Morphine Analogues Allergy Tachycardia Verified 01/03/19 16:02 opium alkaloids Allergy Difficulty Uncoded 08/21/18 16:35 Breathing Home Meds: Home Meds Nitrofurantoin Macrocrystal [Macrodantin] 100 mg PO BID #14 capsule 01/03/19 [Rx ] Ondansetron [Zofran ODT] 4 mg PO Q6H PRN #12 tab.dis 01/03/19 [Rx] Past Medical History HEENT History: Reports: None, Other (See Below) Other HEENT History: sinus polyps Cardiovascular History: Reports: None Respiratory History: Reports: Asthma, Bronchitis, Recurrent, COPD Gastrointestinal History: Reports: Cholelithiasis, Hemorrhoids, Irritable Bowel Syndrome Other Gastrointestinal History: hx gastric ulcer Genitourinary History: Reports: None, Other (See Below) Other Genitourinary History: HPV [employer] History: Reports: Dysfunctional Uterine Bleeding, Other (See Below), Musculoskeletal History: Reports: Arthritis, Back Pain, Chronic, Fibromyalgia, Other (See Below) Other Musculoskeletal History: scoliosis Neurological History: Reports: Head Trauma, Migraines, Seizure Psychiatric History: Reports: Anxiety, None, Panic Attack Endocrine/Metabolic History: Reports: None, Other (See Below) Other Endocrine/Metabolic History: hypoglycemia Hematologic History: Reports: Anemia, Blood Transfusion(s), Transfusion Reaction Other Hematologic History: states had some sort of reaction with first blood transfusion 5 yrs ago, but unsure what it was Oncologic (Cancer) History: Reports: None Dermatologic History: Reports: None - Infectious Disease History Infectious Disease History: Reports: Chicken Pox - Past Surgical History Head Surgeries/Procedures: Reports: None GI Surgical History: Reports: Bariatric Procedure, Cholecystectomy - History Comment History Comment: Identical twin, 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 Social & Family History - Family History Family Medical History: Noncontributory - Caffeine Use Caffeine Use: Reports: Soda - Living Situation & Occupation Living situation: Reports: (same sex partner) Occupation: Employed ([employer]) ED ROS GENERAL - Review of Systems Review Of Systems: See Below ED EXAM, GENERAL - Physical Exam Exam: See Below Course - Vital Signs Last Recorded V/S: Last Vital Signs Temp 97.2 F 01/03/19 16:02 Pulse 78 01/03/19 16:02 Resp 18 01/03/19 16:02 BP 98/59 L 01/03/19 16:02 Pulse Ox 97 01/03/19 16:02 - Orders/Labs/Meds Orders: Active Orders 24 hr Category Date Time Status EKG 12 Lead [EKG Documentation Completion] [RC] STAT Care 01/03/19 17:43 Active CULTURE BLOOD [BC] Stat Lab 01/03/19 16:15 Received CULTURE BLOOD [BC] Stat Lab 01/03/19 16:30 Received HEPATITIS PANEL (4) [REF] Routine Lab 01/03/19 19:37 Ordered Sodium Chloride 0.9% [Saline Flush] Med 01/03/19 16:00 Active 10 ml FLUSH ASDIRECTED PRN Sodium Chloride 0.9% [Saline Flush] Med 01/03/19 16:00 Active 2.5 ml FLUSH ASDIRECTED PRN Blood Culture x2 Reflex Set [OM.PC] Stat Oth 01/03/19 16:10 Ordered Saline Lock Insert [OM.PC] Stat Oth 01/03/19 16:00 Ordered Medication Orders Sodium Chloride (Saline Flush) 10 ml FLUSH ASDIRECTED PRN PRN Reason: Keep Vein Open Last Admin: 01/03/19 16:28 Dose: 10 ml Sodium Chloride (Saline Flush) 2.5 ml FLUSH ASDIRECTED PRN PRN Reason: Keep Vein Open Last Admin: 01/03/19 16:28 Dose: 2.5 ml Labs: Laboratory Tests 01/03/19 01/03/19 01/03/19 Range/Units 16:15 16:15 16:15 WBC 10.15 (4.0-11.0) K/uL RBC 4.58 (4.30-5.90) M/uL Hgb 14.4 (12.0-16.0) g/dL Hct 41.6 (36.0-46.0) % MCV 90.8 (80.0-98.0) fL MCH 31.4 (27.0-32.0) pg MCHC 34.6 (31.0-37.0) g/dL RDW Std Deviation 49.8 (28.0-62.0) fl RDW Coeff of Kenny 15 (11.0-15.0) % Plt Count 103 L (150-400) K/uL MPV 11.70 (7.40-12.00) fL Add Manual Diff YES Neutrophils % (Manual) 77 (48.0-80.0) % Band Neutrophils % 2 % Lymphocytes % (Manual) 17 (16.0-40.0) % Monocytes % (Manual) 3 (0.0-15.0) % Basophils % (Manual) 1 (0.0-1.5) % Nucleated RBC % 0.0 /100WBC Absolute Seg Neuts 7.8 H (1.4-5.7) Band Neutrophils # 0.2 Lymphocytes # (Manual) 1.7 (0.6-2.4) Monocytes # (Manual) 0.3 (0.0-0.8) Basophils # (Manual) 0.1 (0.0-0.1) Nucleated RBCs # 0 K/uL Sodium 137 (136-145) mmol/L Potassium 3.1 L (3.5-5.1) mmol/L Chloride 103 (98-107) mmol/L Carbon Dioxide 22.9 (21.0-32.0) mmol/L BUN 18 (7.0-18.0) mg/dL Creatinine 0.7 (0.6-1.0) mg/dL Est Cr Clr Drug Dosing 101.99 mL/min Estimated GFR (MDRD) > 60.0 ml/min Glucose 128 H (74-106) mg/dL Calcium 8.3 L (8.5-10.1) mg/dL Total Bilirubin 2.4 H (0.2-1.0) mg/dL AST 80 H (15-37) IU/L ALT 971 H (14-63) IU/L Alkaline Phosphatase 245 H (46-116) U/L Total Protein 5.7 L (6.4-8.2) g/dL Albumin 2.3 L (3.4-5.0) g/dL Globulin 3.4 (2.6-4.0) g/dL Albumin/Globulin Ratio 0.7 L (0.9-1.6) Lipase 3788 H (73-393) U/L Urine Color Urine Appearance Urine pH (5.0-8.0) Ur Specific Mentor (1.001-1.035) Urine Protein (NEGATIVE) mg/dL Urine Glucose (UA) (NEGATIVE) mg/dL Urine Ketones (NEGATIVE) mg/dL Urine Occult Blood (NEGATIVE) Urine Nitrite (NEGATIVE) Urine Bilirubin (NEGATIVE) Urine Urobilinogen (<2.0) EU/dL Ur Leukocyte Esterase (NEGATIVE) Urine RBC (0-2/HPF) Urine WBC (0-5/HPF) Ur Epithelial Cells (NONE-FEW) Urine Bacteria (NEGATIVE) Blood Type Antibody Screen 01/03/19 01/03/19 Range/Units 16:30 17:58 WBC (4.0-11.0) K/uL RBC (4.30-5.90) M/uL Hgb (12.0-16.0) g/dL Hct (36.0-46.0) % MCV (80.0-98.0) fL MCH (27.0-32.0) pg MCHC (31.0-37.0) g/dL RDW Std Deviation (28.0-62.0) fl RDW Coeff of Kenny (11.0-15.0) % Plt Count (150-400) K/uL MPV (7.40-12.00) fL Add Manual Diff Neutrophils % (Manual) (48.0-80.0) % Band Neutrophils % % Lymphocytes % (Manual) (16.0-40.0) % Monocytes % (Manual) (0.0-15.0) % Basophils % (Manual) (0.0-1.5) % Nucleated RBC % /100WBC Absolute Seg Neuts (1.4-5.7) Band Neutrophils # Lymphocytes # (Manual) (0.6-2.4) Monocytes # (Manual) (0.0-0.8) Basophils # (Manual) (0.0-0.1) Nucleated RBCs # K/uL Sodium (136-145) mmol/L Potassium (3.5-5.1) mmol/L Chloride (98-107) mmol/L Carbon Dioxide (21.0-32.0) mmol/L BUN (7.0-18.0) mg/dL Creatinine (0.6-1.0) mg/dL Est Cr Clr Drug Dosing mL/min Estimated GFR (MDRD) ml/min Glucose (74-106) mg/dL Calcium (8.5-10.1) mg/dL Total Bilirubin (0.2-1.0) mg/dL AST (15-37) IU/L ALT (14-63) IU/L Alkaline Phosphatase (46-116) U/L Total Protein (6.4-8.2) g/dL Albumin (3.4-5.0) g/dL Globulin (2.6-4.0) g/dL Albumin/Globulin Ratio (0.9-1.6) Lipase (73-393) U/L Urine Color ORANGE Urine Appearance CLOUDY Urine pH 6.0 (5.0-8.0) Ur Specific Mentor 1.010 (1.001-1.035) Urine Protein 30 H (NEGATIVE) mg/dL Urine Glucose (UA) NEGATIVE (NEGATIVE) mg/dL Urine Ketones NEGATIVE (NEGATIVE) mg/dL Urine Occult Blood LARGE H (NEGATIVE) Urine Nitrite POSITIVE H (NEGATIVE) Urine Bilirubin SMALL H (NEGATIVE) Urine Urobilinogen 4.0 H (<2.0) EU/dL Ur Leukocyte Esterase MODERATE H (NEGATIVE) Urine RBC 5-10 (0-2/HPF) Urine WBC 12-16 (0-5/HPF) Ur Epithelial Cells RARE (NONE-FEW) Urine Bacteria 2+ H (NEGATIVE) Blood Type O NEGATIVE Antibody Screen NEGATIVE Meds: Medications Generic Name Dose Route Start Last Admin Trade Name Freq PRN Reason Stop Dose Admin Sodium Chloride 10 ml 01/03/19 16:00 01/03/19 16:28 Saline Flush FLUSH 10 ml ASDIRECTED PRN Administration Keep Vein Open Sodium Chloride 2.5 ml 01/03/19 16:00 01/03/19 16:28 Saline Flush FLUSH 2.5 ml ASDIRECTED PRN Administration Keep Vein Open Discontinued Medications Generic Name Dose Route Start Last Admin Trade Name Freq PRN Reason Stop Dose Admin Sodium Chloride 1,000 mls @ 999 mls/hr 01/03/19 16:11 01/03/19 16:28 Normal Saline IV 01/03/19 17:11 999 mls/hr .Bolus ONE Administration Ondansetron HCl 4 mg 01/03/19 19:15 01/03/19 19:20 Zofran IVPUSH 01/03/19 19:16 4 mg ONETIME ONE Administration Potassium Chloride 40 meq 01/03/19 19:15 01/03/19 19:20 Klor-Con M20 PO 01/03/19 19:16 40 meq ONETIME ONE Administration Departure - Departure Time of Disposition: 19:38 Disposition: Home, Self-Care 01 Condition: Good Clinical Impression: Elevated liver function tests - Discharge Information *PRESCRIPTION DRUG MONITORING PROGRAM REVIEWED*: No *COPY OF PRESCRIPTION DRUG MONITORING REPORT IN PATIENT ANNY: No Prescriptions: Nitrofurantoin Macrocrystal [Macrodantin] 100 mg PO BID #14 capsule Ondansetron [Zofran ODT] 4 mg PO Q6H PRN #12 tab.dis PRN Reason: Nausea Instructions: Liver Function Tests Referrals: PCP,None [Primary Care Provider] - Forms: ED Department Discharge Additional Instructions: The following information is given to patients seen in the emergency department who are being discharged to home. This information is to outline your options for follow-up care. We provide all patients seen in our emergency department with a follow-up referral. The need for follow-up, as well as the timing and circumstances, are variable depending upon the specifics of your emergency department visit. If you don't have a primary care physician on staff, we will provide you with a referral. We always advise you to contact your personal physician following an emergency department visit to inform them of the circumstance of the visit and for follow-up with them and/or the need for any referrals to a consulting specialist. The emergency department will also refer you to a specialist when appropriate. This referral assures that you have the opportunity for follow-up care with a specialist. All of these measure are taken in an effort to provide you with optimal care, which includes your follow-up. Under all circumstances we always encourage you to contact your private physician who remains a resource for coordinating your care. When calling for follow-up care, please make the office aware that this follow-up is from your recent emergency room visit. If for any reason you are refused follow-up, please contact the [facility] Emergency Department at and asked to speak to the emergency department charge nurse. Follow-up with general surgery or primary care. Return if symptoms worsen or change. [facility] [address] [place] [id number] [facility] - General Surgery Professional Building [address] [place] [address], [address] [place] [address] - My Orders Last 24 Hours: My Active Orders 01/03/19 16:00 Sodium Chloride 0.9% [Saline Flush] 10 ml FLUSH ASDIRECTED PRN Sodium Chloride 0.9% [Saline Flush] 2.5 ml FLUSH ASDIRECTED PRN Saline Lock Insert [OM.PC] Stat 01/03/19 16:10 Blood Culture x2 Reflex Set [OM.PC] Stat 01/03/19 16:15 CULTURE BLOOD [BC] Stat 01/03/19 16:30 CULTURE BLOOD [BC] Stat 01/03/19 17:43 EKG 12 Lead [EKG Documentation Completion] [RC] STAT 01/03/19 19:37 HEPATITIS PANEL (4) [REF] Routine - Assessment/Plan Last 24 Hours: My Active Orders 01/03/19 16:00 Sodium Chloride 0.9% [Saline Flush] 10 ml FLUSH ASDIRECTED PRN Sodium Chloride 0.9% [Saline Flush] 2.5 ml FLUSH ASDIRECTED PRN Saline Lock Insert [OM.PC] Stat 01/03/19 16:10 Blood Culture x2 Reflex Set [OM.PC] Stat 01/03/19 16:15 CULTURE BLOOD [BC] Stat 01/03/19 16:30 CULTURE BLOOD [BC] Stat 01/03/19 17:43 EKG 12 Lead [EKG Documentation Completion] [RC] STAT 01/03/19 19:37 HEPATITIS PANEL (4) [REF] Routine
[2019-01-03] MEDS ORDERED: Sodium Chloride 0.9% 2.5 ML Syringe FLUSH PRN (16:00)
[2019-01-03] MEDS ORDERED: Sodium Chloride 0.9% 10 ML Syringe FLUSH PRN (16:00)
[2019-01-03] MEDS ORDERED: Sodium Chloride 0.9% 1,000 ML IV ONE (16:11)
--- NOTE | 2019-01-03 16:50 | CR ---
INDICATION: pain, sob TECHNIQUE: Chest 1 view. COMPARISON: 09/16/18 FINDINGS: Cardiovascular and mediastinum: Heart size and vasculature are normal in caliber and appearance. Mediastinum is within normal limits. Lungs and pleural space: Lungs are clear. No sign of infiltrate or mass. No sign of pleural effusion. No pneumothorax. Bones and soft tissues: No significant findings. IMPRESSION: Unremarkable chest. Dictated by: Lavelle Jimenez MD @ 01/03/2019 16:49:05 (Electronically Signed)
[2019-01-03 17:15] LABS: CHLORIDE,CL 103 mmol/L (98-107); SODIUM,NA 137 mmol/L (136-145)
[2019-01-03] MEDS ORDERED: Acetaminophen 325 MG Tab PO ONE (17:26)
[2019-01-03] MEDS ORDERED: Potassium Chloride 20 MEQ Tab.ER PO ONE (19:15)
[2019-01-03] MEDS ORDERED: Ondansetron 4 MG/2 ML SDV IVPUSH ONE (19:15)
--- NOTE | 2019-01-03 19:35 | US ---
INDICATION: Lower abdominal pain TECHNIQUE: Ultrasound abdomen limited. Sonographic images of the right upper quadrant were obtained using aldana-scale and color Doppler images. COMPARISON: None FINDINGS: Liver: Normal in size and echotexture. 3.0 centimeter round hyperechoic hepatic lesion possibly representing hepatic hemangioma. No intrahepatic biliary dilatation. Gallbladder: Cystectomy. Common bile duct: 6 mm. Pancreas: Normal. Right kidney: 15.3 cm. Normal echotexture and cortex. No masses, stones, or hydronephrosis. IMPRESSION: Cholecystectomy. Normal common bile duct. 3.0 centimeter hypoechoic round hepatic lesion possibly representing a hepatic hemangioma. Dictated by Lavelle Jimenez MD @ 01/03/2019 7:33:04 PM Dictated by: Lavelle Jimenez MD @ 01/03/2019 19:33:35 (Electronically Signed)
== END 2019-01-03 19:49 | disposition home or self-care (01) ==
LOC: MW.ED 15:55
DX: N39.0 Urinary tract infection, site not specified (principal); E87.6 Hypokalemia; R79.89 Other specified abnormal findings of blood chemistry; M19.90 Unspecified osteoarthritis, unspecified site; Z98.84 Bariatric surgery status; Z90.49 Acquired absence of other specified parts of digestive tract; Z88.1 Allergy status to other antibiotic agents; Z91.018 Allergy to other foods; Z86.2 Personal history of diseases of the blood and blood-forming organs and certain disorders involving the immune mechanism; Z88.5 Allergy status to narcotic agent
CPT/HCPCS: 36415; 71045; 76705; 80053; 80074; 81001; 83690; 85025; 86850; 86900; 86901; 87040; 93005; 96361; 96374; 99285; A9270; J2405; J7040; 99284

== ENCOUNTER 2019-01-04 06:57 | Inpatient (IN) | payer BC ==
[2019-01-04] MEDS ORDERED: Ondansetron 4 MG/2 ML SDV IVPUSH PRN (07:51)
[2019-01-04] MEDS ORDERED: Acetaminophen 325 MG Tab PO PRN (07:51)
[2019-01-04] MEDS ORDERED: Sodium Chloride 0.9% 2.5 ML Syringe FLUSH PRN (07:51)
[2019-01-04] MEDS: Sodium Chloride 0.9% 1,000 ML IV SCH ×3 (08:23→11:04)
--- NOTE | 2019-01-04 08:32 | PCM.HP ---
H&P History of Present Illness - General Date of Service: 01/04/19 Admit Problem/Dx: Admission Diagnosis/Problem Admission Diagnosis/Problem Positive blood culture Source of Information: Patient History Limitations: Reports: No Limitations - History of Present Illness Initial Comments - Free Text/Narative: This 38 year old female with pmh of seizure disorder, alcohol abuse, gastric bypass was directly admitted from home after 1 set of blood cultures return positive with gram negative rods. She was seen in the ED last evening with complaints of abdominal pain not feeling well and sore to her L groin. She reports for the last 2 weeks she has not felt well having chills and fevers at home, headaches, abdominal pain with bloating, flank pain and back pain. She reports the groin sore started as a boil it then opened and drained chunky maroon fluid 3 days ago. She reports since then it has been an open wound with little drainage, but has significant pain with sitting. She denies urinary symptoms, no frequency or urgency, maybe slightly darker urine. She reports she has been able to eat and drink ok, no change in pain and no nausea or vomiting. She reports her last seizure was 1 week ago, she currently ran out of her Keppra. Repeat labwork this morning reveals WBC 10,270, platelets 58,000, lactate 0.8, BUN 12, Cr 0.6 Bili 1.9 AST 63, ALT 700, alk phos 225, Lipase 3750, Tylenol level 2.7. HCG negative. CXR negative. Abd U/S cholecystectomy, with noted 3.0 hypoechoic lesion, likely hemangioma. BC obtained yesterday, returned overnight gram negative rods 1/4 bottles so far. She was treated with Nitrofurantoin for UTI. UC sent. CT angio of chest and CT of abd/pelvis obtained this morning after admission, this reveals NO PE, mild generalized anasarca, omental and mesenteric stranding , free pelvis fluid, R hepatic lobe hemangioma. Spoke with Dr Garzon, not enough fluid for paracentesis. No focal stranding near pancreas and imaging did not go low enough to visualize L groin wound. She will be admitted inpatient for bacteremia with gram negative rods, UTI, pancreatitis and L groin wound. PCP, Jennifer Mattson - Related Data Allergies/Adverse Reactions: Allergies Allergy/AdvReac Type Severity Reaction Status Date / Time red dye Allergy Severe Anaphylactic Verified 01/04/19 09:12 Shock cephalexin Allergy Rash Verified 01/04/19 09:12 Cephalosporins Allergy Difficulty Verified 01/04/19 09:12 Breathing meperidine [From Demerol] Allergy Rash Verified 01/04/19 09:12 morphine Allergy Tachycardia Verified 01/04/19 09:12 Opioids - Morphine Analogues Allergy Tachycardia Verified 01/04/19 09:12 opium alkaloids Allergy Difficulty Uncoded 01/04/19 09:19 Breathing Home Medications: Home Meds Nitrofurantoin Macrocrystal [Macrodantin] 100 mg PO BID #14 capsule 01/03/19 [Rx ] Ondansetron [Zofran ODT] 4 mg PO Q6H PRN #12 tab.dis 01/03/19 [Rx] Past Medical History HEENT History: Reports: None, Other (See Below) Other HEENT History: sinus polyps Cardiovascular History: Reports: None. Denies: Blood Clots/VTE/DVT, CAD, High Cholesterol, Hypertension Respiratory History: Reports: Asthma, Bronchitis, Recurrent, COPD Gastrointestinal History: Reports: Cholelithiasis, Hemorrhoids, Irritable Bowel Syndrome Other Gastrointestinal History: hx gastric ulcer Genitourinary History: Reports: None, Other (See Below) Other Genitourinary History: [facility] History: Reports: Dysfunctional Uterine Bleeding, Other (See Below), Musculoskeletal History: Reports: Arthritis, Back Pain, Chronic, Fibromyalgia, Other (See Below) Other Musculoskeletal History: scoliosis Neurological History: Reports: Head Trauma, Migraines, Seizure Psychiatric History: Reports: Anxiety, None, Panic Attack Endocrine/Metabolic History: Reports: None, Other (See Below) Other Endocrine/Metabolic History: hypoglycemia Hematologic History: Reports: Anemia, Blood Transfusion(s), Transfusion Reaction Other Hematologic History: states had some sort of reaction with first blood transfusion 5 yrs ago, but unsure what it was Immunologic History: Reports: None Oncologic (Cancer) History: Reports: None Dermatologic History: Reports: None - Infectious Disease History Infectious Disease History: Reports: Chicken Pox - Past Surgical History Head Surgeries/Procedures: Reports: None GI Surgical History: Reports: Bariatric Procedure, Cholecystectomy (due to cholelithiasis) - History Comment History Comment: Identical twin, 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 Social & Family History - Family History Family Medical History: Noncontributory - Tobacco Use Smoking Status *Q: Current Every Day Smoker Years of Tobacco use: 17 Packs/Tins Daily: 2 Used Tobacco, but Quit: No Second Hand Smoke Exposure: Yes - Caffeine Use Caffeine Use: Reports: Soda - Alcohol Use Days Per Week of Alcohol Use: 3 Number of Drinks Per Day: 3 Total Drinks Per Week: 9 Date of Last Drink: 01/01/19 Time of Last Drink: 10:00 Alcohol Use Comment: drank up to 1 liter every 2 days, quit this heavy use about 2 months ago. - Recreational Drug Use Recreational Drug Use: No - Living Situation & Occupation Living situation: Reports: (reports left her 6 months ago.) Occupation: Employed ([employer]) H&P Review of Systems - Review of Systems: Review Of Systems: See Below General: Reports: Fever, Chills, Malaise HEENT: Reports: Headaches. Denies: Ear Pain, Sinus Congestion, Vertigo, Visual Changes Pulmonary: Reports: Cough, Hemoptysis. Denies: Shortness of Breath, Wheezing Cardiovascular: Reports: Edema (legs ). Denies: Chest Pain Gastrointestinal: Reports: Abdominal Pain, Distension (bloating). Denies: Black Stool, Bloody Stool, Nausea, Vomiting Genitourinary: Reports: Flank Pain Musculoskeletal: Reports: Back Pain (chronic) Skin: Reports: Wound (L groin/labia) Psychiatric: Reports: No Symptoms Neurological: Reports: No Symptoms Hematologic/Lymphatic: Reports: No Symptoms Immunologic: Reports: No Symptoms Exam - Exam Exam: See Below - Vital Signs Vital Signs: Last Vital Signs Temp 100.1 F 01/04/19 08:19 Pulse 103 H 01/04/19 07:29 Resp 16 01/04/19 07:29 BP 116/67 01/04/19 07:29 Pulse Ox 95 01/04/19 07:29 Weight: 63.458 kg - Exam Quality Assessment: DVT Prophylaxis (SCDs) General: Alert, Oriented, Cooperative HEENT: Conjunctiva Clear, Posterior Pharynx Clear, Other (poor dentitioin, missing and broken teeth noted. Denies painful teeth) Lungs: Clear to Auscultation, Normal Respiratory Effort. No: Wheezing Cardiovascular: Regular Rate, Regular Rhythm, Normal S1, Normal S2. No: Tachycardia GI/Abdominal Exam: Normal Bowel Sounds, Soft, Distended, Tender (RUQ and epigastric) Extremities: Normal Inspection, Normal Range of Motion, Non-Tender, No Pedal Edema Skin: Wound (L groin, just lateral to L labia, approximately 1/2 wide, tunneling at least 1 inch along side L labia majora. scant purulent drainage noted. no fluctuance noted, erythema and tenderness. ) Neuro Extensive - Mental Status: Alert, Oriented x3, Normal Mood/Affect, Normal Cognition Neuro Extensive - Motor, Sensory, Reflexes: CN II-XII Intact, Normal Gait, Normal Reflexes Psychiatric: Alert, Normal Affect, Normal Mood - Patient Data Result Diagrams: 01/04/19 08:13 01/04/19 08:13 *Q Meaningful Use (ADM) - VTE *Q VTE Pharmacological Contraindications *Q: Thrombocytopenia - Problem List (1) Bacteremia due to Gram-negative bacteria SNOMED Code(s): 068485312919 ICD Code: R78.81 - BACTEREMIA Status: Acute Current Visit: Yes (2) Pancreatitis SNOMED Code(s): 00729507 ICD Code: K85.90 - ACUTE PANCREATITIS WITHOUT NECROSIS OR INFECTION, UNSP Status: Acute Current Visit: Yes Qualifiers: Chronicity: acute Pancreatitis type: alcohol induced (3) Abscess SNOMED Code(s): 220639412 ICD Code: L02.91 - CUTANEOUS ABSCESS, UNSPECIFIED Status: Acute Current Visit: Yes (4) Thrombocytopenia SNOMED Code(s): 339491758 ICD Code: D69.6 - THROMBOCYTOPENIA, UNSPECIFIED Status: Acute Current Visit: Yes (5) UTI (urinary tract infection) SNOMED Code(s): 80126941 ICD Code: N39.0 - URINARY TRACT INFECTION, SITE NOT SPECIFIED Status: Acute Current Visit: Yes (6) Transaminitis SNOMED Code(s): 051384152, 742407490 ICD Code: R74.0 - NONSPEC ELEV OF LEVELS OF TRANSAMNS & LACTIC ACID DEHYDRGNSE Status: Acute Current Visit: No (7) Hx of gastric bypass SNOMED Code(s): 916998602 ICD Code: Z98.84 - BARIATRIC SURGERY STATUS Status: Chronic Current Visit : Yes (8) Fibromyalgia SNOMED Code(s): 579297890 ICD Code: M79.7 - FIBROMYALGIA Status: Chronic Current Visit: No (9) Hx of seizure disorder SNOMED Code(s): 584495297 ICD Code: Z86.69 - PERSONAL HISTORY OF DIS OF THE NERVOUS SYS AND SENSE ORGANS Status: Chronic Current Visit: No Problem List Initiated/Reviewed/Updated: Yes Orders Last 24hrs: Active Orders 24 hr Category Date Time Status Patient Status [ADT] Stat ADT 01/04/19 08:31 Ordered Intake and Output [RC] QSHIFT Care 01/04/19 07:52 Ordered May Shower [RC] ASDIRECTED Care 01/04/19 07:51 Ordered Oxygen Therapy [RC] PRN Care 01/04/19 07:51 Ordered Up ad Anahi [RC] ASDIRECTED Care 01/04/19 07:51 Ordered VTE/DVT Education [RC] PER UNIT ROUTINE Care 01/04/19 07:51 Ordered Vital Signs [RC] Q4H Care 01/04/19 07:51 Ordered NPO [Nothing Per Oral Diet] [DIET] Diet 01/04/19 Breakfast Ordered CBC WITH AUTO DIFF [HEME] Routine Lab 01/04/19 07:51 Ordered COMPREHENSIVE METABOLIC PN,CMP [CHEM] Routine Lab 01/04/19 07:51 Ordered LIPASE [CHEM] Routine Lab 01/04/19 07:55 Ordered Ondansetron [Zofran] Med 01/04/19 07:51 Ordered 4 mg IVPUSH Q4H PRN Pharmacy to Dose - Vancomycin Med 01/04/19 08:30 Ordered 1 dose .XX ASDIRECTED Piperacillin/Tazobactam [Piperacil-Tazobact] 4.5 gm Med 01/04/19 08:30 Ordered Sodium Chloride 0.9% [Normal Saline] 100 ml IV Q6H Sodium Chloride 0.9% [Normal Saline] 1,000 ml Med 01/04/19 08:00 Ordered IV ASDIRECTED Sodium Chloride 0.9% [Normal Saline] 1,000 ml Med 01/04/19 08:00 Ordered IV ASDIRECTED Sodium Chloride 0.9% [Saline Flush] Med 01/04/19 07:51 Ordered 2.5 ml FLUSH ASDIRECTED PRN Saline Lock Insert [OM.PC] Routine Oth 01/04/19 07:51 Ordered Resuscitation Status Routine Resus Stat 01/04/19 07:51 Ordered Medication Orders Sodium Chloride (Normal Saline) 1,000 mls @ 999 mls/hr IV ASDIRECTED MATEUS Stop: 01/05/19 09:01 Last Admin: 01/04/19 08:23 Dose: 999 mls/hr Sodium Chloride (Normal Saline) 1,000 mls @ 200 mls/hr IV ASDIRECTED [facility] Piperacillin Sod/Tazobactam (Sod 4.5 gm/ Sodium Chloride) 100 mls @ 100 mls/hr IV Q6H [facility] Ondansetron HCl (Zofran) 4 mg IVPUSH Q4H PRN PRN Reason: Nausea Sodium Chloride (Saline Flush) 2.5 ml FLUSH ASDIRECTED PRN PRN Reason: Keep Vein Open Vancomycin HCl (Pharmacy To Dose - Vancomycin) 1 dose .XX ASDIRECTED [facility] Assessment/Plan Comment:: This 38 year old female admitted with gram negative ruy bacteremia, pancreatitis , UTI and L groin draining abscess 1. Gram negative Ruy bacteremia: Likely secondary to UTI. Cover with Zosyn. Will repeat BC in am after 24 hours of antibiotic treatment. Await ROBERTO of BC from ED. 2. UTI: Zosyn, UC pending. 3. L groin abscess: draining.Wound culture obtained, tunneling noted. Consulted Dr Sal, [facility], we appreciate her assistance with this patient. Add Vancomycin to Zosyn for MRSA coverage. 4. Pancreatitis: Gave 2 L NS bolus this morning, continue IVF resuscitation. Bowel rest for now. Repeat lipase in am. Pain medication PRN. 5. Transaminitis: Hx of mildly elevated LFTs. Spoke with Dr Galan regarding hx of cholelithiasis with cholecystectomy. Recommended MRCP to rule out any further bile duct stones. Bilirubin improved from ED slightly, 1.9 today from 2.4. Has extensive alcohol abuse history, quit heavily drinking 2 months ago. Tylenol level WNL. Hepatitis panel pending. INR 1.24. 6. Thrombocytopenia: Monitor. Likely secondary to liver disease. 7. Seizure disorder: Restart Keppra. Referral to Neurology as outpatient. VTE prophylaxis: SCDs only due to thrombocytopenia. Dispo: 2-3 days pending improvement
[2019-01-04 08:47] LABS: CHLORIDE,CL 105 mmol/L (98-107); SODIUM,NA 138 mmol/L (136-145)
[2019-01-04] MEDS: Piperacillin/Tazobactam 4.5 GM in Sodium Chloride 0.9% 100 ML IV SCH ×3 (09:04→21:00)
[2019-01-04] MEDS ORDERED: Iopamidol 755 MG/ML 500 ML Multipack Bottle IVPUSH STA (09:54)
--- NOTE | 2019-01-04 10:32 | CT ---
EXAMINATION: CTA chest, and CT abdomen and pelvis with contrast HISTORY: Hemoptysis COMPARISON: Radiographs dated 01/03/2019 and ultrasound dated 01/03/2019 TECHNIQUE: Axial CT imaging obtained through the chest and abdomen following the administration of 75 mL of Isovue-370 left antecubital fossa. Coronal and sagittal reconstructions obtained. FINDINGS: Chest: The lungs are clear without focal consolidation. No pleural effusion or pneumothorax. The heart is normal in size without a pericardial effusion. The thoracic aorta is normal in caliber. The main and central pulmonary arteries are patent. No mediastinal, hilar, or axillary lymphadenopathy. Abdomen: There is a 2.9 cm hypodensity within the right hepatic lobe, corresponding to a well-circumscribed hyperechoic area on the recent ultrasound. There is moderate nonspecific periportal edema. The portal system also appears patent. Postsurgical changes are noted secondary to gastric bypass. There is mild generalized anasarca and mild generalized edema within the omentum and mesentery. There is a small amount of free pelvic fluid. The kidneys enhance and function symmetrically without evidence of obstructive uropathy. Adrenal glands, pancreas appear normal. The spleen is unremarkable. Pelvis: The large and small bowel are normal in caliber without evidence of obstruction. No definite focal pericolonic inflammation or stranding. Appendix is normal. No pelvic lymphadenopathy or free air. The urinary bladder is normal. No suspicious osseous abnormalities identified. IMPRESSION: 1. No pulmonary embolism identified. 2. Mild generalized anasarca, omental and mesenteric stranding, free pelvic fluid. Correlate with volume overload versus heart failure. 3. Right hepatic lobe hemangioma. 4. Postsurgical changes secondary to gastric bypass.
[2019-01-04] MEDS ORDERED: Gadobenate Dimeglumine 529 MG/ML 20 ML SDV IVPUSH STA (12:49)
[2019-01-04] MEDS: levETIRAcetam 500 MG Tab PO SCH ×2 (13:44→21:01)
--- NOTE | 2019-01-04 14:13 | MR ---
EXAMINATION: MRI abdomen with and without contrast HISTORY: Elevated bilirubin COMPARISON: CT from the same day TECHNIQUE: Multiplanar multisequence imaging obtained through the abdomen before and following the administration of 11 mL of MultiHance in the left antecubital fossa. FINDINGS: The liver is normal in signal with a 2.4 cm intensity within the right hepatic lobe. Given the appearance and enhancement this is most likely a hemangioma. There is a trace perihepatic fluid. Mild periportal edema is also noted. Common bile duct appears patent. The pancreas appears normal. Mild motion artifact obscures fine detail on several sequences. The kidneys demonstrate mildly heterogeneous enhancement bilaterally with a possible striated appearance. No bulky pelvic lymphadenopathy. Mild generalized anasarca. There is no abnormal bone marrow signal. IMPRESSION: 1. Heterogeneous signal and enhancement within the kidneys. Correlate for pyelonephritis versus an underlying nephropathy. 2. Trace abdominal ascites and periportal edema of uncertain etiology. 3. The biliary tree, status post cholecystectomy, otherwise appears unremarkable. 4. Probable hemangioma within the right hepatic lobe.
--- NOTE | 2019-01-04 14:55 | HP ---
DATE OF : 1980 PRIMARY CARE PHYSICIAN: None PCP CHIEF COMPLAINT: Lesion on her leg. HISTORY OF PRESENT ILLNESS: This is a 38-year-old female. She is admitted under the care of Dr. Olivas and Sara Butts for bacteremia, pancreatitis, urinary tract infection, thrombocytopenia, and she was noted to have an open wound on her left groin area. She states this is at the level of her panty line. She has had it for 1 to 2 weeks. She noticed that it drained. She has been packing it herself at home and using [id number] antibacterial ointment, and she states it has improved, it no longer has any significant drainage, and her only complaint related to it is pain. PAST MEDICAL HISTORY: Significant for sinus polyps, asthma, bronchitis, recurrent COPD, cholelithiasis, hemorrhoids, irritable bowel syndrome, gastric ulcer, back pain, chronic fibromyalgia. PAST SURGICAL HISTORY: Bariatric surgery, cholecystectomy, and hysterectomy. ALLERGIES: Red dye, cephalexin, cephalosporins, meperidine, morphine. MEDICATIONS: 1. Keppra. 2. Zofran. 3. Zosyn. 4. Vancomycin. 5. Tylenol. SOCIAL HISTORY: She is a smoker. She drinks approximately 3 drinks of alcohol per week, but intermittently uses heavily. She is . She works at [employer]. REVIEW OF SYSTEMS: Positive for fever, chills, malaise, headache, cough, hemoptysis, extremity edema, abdominal distention, bloating, back pain, wound in the left groin. PHYSICAL EXAMINATION: VITAL SIGNS: Temperature is 36.7, pulse is 73, blood pressure 84/56, respiratory rate of 16, O2 saturations 96%. GENERAL: She is in no acute distress. She is noted to have erythema of the oropharynx. She is also noted to have very poor dentition. EXTREMITIES: Targeted examination reveals a 2 x 1.5 cm defect in the inner aspect of her left thigh. This is not near the labia or is not on the perineum. It is actually lateral to the groin area. It is approximately 1 cm in depth. There is no drainage. The defect appears to be healing by secondary intention along the edges. ASSESSMENT: Draining abscess of the left inner thigh. There does not appear to be active infection. It appears to be healing by secondary intention. Recommend continue IV antibiotics and packing wet-to-dry until healed. I will defer further care to primary care team or if further recommendations on wound care are requested, I would defer to General Surgery. EMMA AVINA /[id number]
[2019-01-05] MEDS: Piperacillin/Tazobactam 4.5 GM in Sodium Chloride 0.9% 100 ML IV SCH ×4 (02:41→20:15)
[2019-01-05 06:29] LABS: CHLORIDE,CL 109 mmol/L (98-107); SODIUM,NA 141 mmol/L (136-145)
[2019-01-05] MEDS: Sodium Chloride 0.9% 1,000 ML IV SCH ×2 (08:33→16:09)
[2019-01-05] MEDS: levETIRAcetam 500 MG Tab PO SCH ×2 (08:57→21:25)
--- NOTE | 2019-01-05 10:18 | PCM.PN ---
- General Info Date of Service: 01/05/19 Admission Dx/Problem (Free Text): Admission Diagnosis/Problem Admission Diagnosis/Problem Positive blood culture, pancreatitis, Pyelonephritis Subjective Update: Feeling better this morning, abdominal pain is improved as well as bloating. Bottom is sore but also improving as well. No fevers or chills no SOB or chest pain. Functional Status: Reports: Pain Controlled, Ambulating, Urinating - Review of Systems General: Reports: No Symptoms. Denies: Fever, Weakness, Fatigue Pulmonary: Reports: No Symptoms. Denies: Shortness of Breath Cardiovascular: Reports: No Symptoms. Denies: Chest Pain Gastrointestinal: Reports: No Symptoms. Denies: Abdominal Pain, Nausea, Vomiting Genitourinary: Reports: No Symptoms. Denies: Dysuria, Frequency, Burning Musculoskeletal: Reports: No Symptoms Skin: Reports: Other (wound to perineum improving) Psychiatric: Reports: No Symptoms - Patient Data Vitals - Most Recent: Last Vital Signs Temp 98.2 F 01/05/19 08:00 Pulse 63 01/05/19 06:55 Resp 14 01/05/19 08:00 BP 120/68 01/05/19 08:00 Pulse Ox 95 01/05/19 08:00 Weight - Most Recent: 63.458 kg I&O - Last 24 Hours: Intake & Output 01/04/19 01/05/19 01/05/19 22:59 06:59 14:59 Intake Total 3000 360 Output Total 1200 1800 Balance 1800 -1440 Lab Results Last 24 Hours: Laboratory Results - last 24 hr 01/04/19 01/05/19 01/05/19 Range/Units 10:17 05:55 05:55 WBC 11.19 H (4.0-11.0) K/uL RBC 4.09 L (4.30-5.90) M/uL Hgb 12.7 (12.0-16.0) g/dL Hct 38.8 (36.0-46.0) % MCV 94.9 (80.0-98.0) fL MCH 31.1 (27.0-32.0) pg MCHC 32.7 (31.0-37.0) g/dL RDW Std Deviation 52.4 (28.0-62.0) fl RDW Coeff of Kenny 15 (11.0-15.0) % Plt Count 75 L (150-400) K/uL MPV 11.10 (7.40-12.00) fL Neut % (Auto) 75.8 (48.0-80.0) % Lymph % (Auto) 12.8 L (16.0-40.0) % [place] % (Auto) 9.7 (0.0-15.0) % Eos % (Auto) 1.4 (0.0-7.0) % Baso % (Auto) 0.3 (0.0-1.5) % Neut # (Auto) 8.5 H (1.4-5.7) K/uL Lymph # (Auto) 1.4 (0.6-2.4) K/uL [place] # (Auto) 1.1 H (0.0-0.8) K/uL Eos # (Auto) 0.2 (0.0-0.7) K/uL Baso # (Auto) 0.0 (0.0-0.1) K/uL Nucleated RBC % 0.0 /100WBC Nucleated RBCs # 0 K/uL INR 1.24 Sodium 141 (136-145) mmol/L Potassium 3.4 L (3.5-5.1) mmol/L Chloride 109 H (98-107) mmol/L Carbon Dioxide 20.3 L (21.0-32.0) mmol/L BUN 9 (7.0-18.0) mg/dL Creatinine 0.6 (0.6-1.0) mg/dL Est Cr Clr Drug Dosing 122.42 mL/min Estimated GFR (MDRD) > 60.0 ml/min Glucose 80 (74-106) mg/dL Calcium 7.2 L (8.5-10.1) mg/dL Total Bilirubin 1.7 H (0.2-1.0) mg/dL AST 46 H (15-37) IU/L ALT 432 H (14-63) IU/L Alkaline Phosphatase 192 H (46-116) U/L Total Protein 4.9 L (6.4-8.2) g/dL Albumin 1.9 L (3.4-5.0) g/dL Globulin 3.0 (2.6-4.0) g/dL Albumin/Globulin Ratio 0.6 L (0.9-1.6) Lipase 3327 H (73-393) U/L Med Orders - Current: Current Medications Sodium Chloride (Normal Saline) 1,000 mls @ 200 mls/hr IV ASDIRECTED [facility] Last Admin: 01/05/19 08:33 Dose: 200 mls/hr Piperacillin Sod/Tazobactam (Sod 4.5 gm/ Sodium Chloride) 100 mls @ 100 mls/hr IV Q6H [facility] Last Admin: 01/05/19 08:53 Dose: 100 mls/hr Vancomycin HCl 1 gm/ Sodium (Chloride) 250 mls @ 166.667 mls/hr IV Q8H [facility] Last Admin: 01/05/19 03:48 Dose: 166.667 mls/hr Levetiracetam (Keppra) 500 mg PO BID [facility] Last Admin: 01/05/19 08:57 Dose: 500 mg Ondansetron HCl (Zofran) 4 mg IVPUSH Q4H PRN PRN Reason: Nausea Sodium Chloride (Saline Flush) 2.5 ml FLUSH ASDIRECTED PRN PRN Reason: Keep Vein Open Vancomycin HCl (Pharmacy To Dose - Vancomycin) 1 dose .XX ASDIRECTED [facility] Discontinued Medications Acetaminophen (Tylenol) 650 mg PO Q4H PRN PRN Reason: Pain (mild 1-3) Gadobenate Dimeglumine (Multihance) 11 ml IVPUSH ONETIME STA Stop: 01/04/19 12:50 Last Admin: 01/04/19 12:50 Dose: 11 ml Sodium Chloride (Normal Saline) 1,000 mls @ 999 mls/hr IV ASDIRECTED [facility] Stop: 01/05/19 09:01 Last Admin: 01/04/19 09:22 Dose: 999 mls/hr Vancomycin HCl 1 gm/ Sodium (Chloride) 250 mls @ 166.667 mls/hr IV Q8H [facility] Last Admin: 01/04/19 18:03 Dose: Not Given Iopamidol (Isovue Multipack-370 (76%)) 75 ml IVPUSH ONETIME STA Stop: 01/04/19 09:55 Last Admin: 01/04/19 10:02 Dose: 85 ml - Exam General: Alert, Oriented, Cooperative, No Acute Distress Lungs: Clear to Auscultation, Normal Respiratory Effort Cardiovascular: Regular Rate, Regular Rhythm GI/Abdominal Exam: Normal Bowel Sounds, Soft, Tender (scant tenderness in epigastric and R flank) Extremities: Normal Inspection, Normal Range of Motion, Non-Tender, No Pedal Edema Wound/Incisions: Dressing Dry and Intact, Drainage (scant drainage to perineal wound, continue packing and dressing changes daily) Neurological: No New Focal Deficit Psy/Mental Status: Alert, Normal Affect, Normal Mood - Problem List & Annotations (1) Bacteremia due to Gram-negative bacteria SNOMED Code(s): 919146623872 Code(s): R78.81 - BACTEREMIA Status: Acute Current Visit: Yes (2) Pancreatitis SNOMED Code(s): 31658363 Code(s): K85.90 - ACUTE PANCREATITIS WITHOUT NECROSIS OR INFECTION, UNSP Status: Acute Current Visit: Yes Qualifiers: Chronicity: acute Pancreatitis type: alcohol induced (3) Abscess SNOMED Code(s): 962303115 Code(s): L02.91 - CUTANEOUS ABSCESS, UNSPECIFIED Status: Acute Current Visit: Yes (4) Thrombocytopenia SNOMED Code(s): 073201563 Code(s): D69.6 - THROMBOCYTOPENIA, UNSPECIFIED Status: Acute Current Visit: Yes (5) UTI (urinary tract infection) SNOMED Code(s): 90922654 Code(s): N39.0 - URINARY TRACT INFECTION, SITE NOT SPECIFIED Status: Acute Current Visit: Yes (6) Transaminitis SNOMED Code(s): 977269028, 016801427 Code(s): R74.0 - NONSPEC ELEV OF LEVELS OF TRANSAMNS & LACTIC ACID DEHYDRGNSE Status: Acute Current Visit: No (7) Hx of gastric bypass SNOMED Code(s): 335707518 Code(s): Z98.84 - BARIATRIC SURGERY STATUS Status: Chronic Current Visit : Yes (8) Fibromyalgia SNOMED Code(s): 076044814 Code(s): M79.7 - FIBROMYALGIA Status: Chronic Current Visit: No (9) Hx of seizure disorder SNOMED Code(s): 626248003 Code(s): Z86.69 - PERSONAL HISTORY OF DIS OF THE NERVOUS SYS AND SENSE ORGANS Status: Chronic Current Visit: No - Problem List Review Problem List Initiated/Reviewed/Updated: Yes - My Orders Last 24 Hours: My Active Orders 01/04/19 11:10 CULTURE URINE [RM] Routine 01/04/19 11:16 Consult to Physician [CONS] Routine 01/04/19 11:17 Notify Provider Consults [RC] ASDIRECTED 01/04/19 12:45 levETIRAcetam [Keppra] 500 mg PO BID 01/04/19 17:07 Wound Care [RC] DAILY 01/04/19 19:00 Vancomycin 1 gm Sodium Chloride 0.9% [Normal Saline] 250 ml IV Q8H 01/04/19 19:30 Blood Culture x2 Reflex Set [OM.PC] Stat 01/05/19 05:55 CULTURE BLOOD [BC] AM 01/05/19 06:05 CULTURE BLOOD [BC] AM 01/05/19 10:00 VANCOMYCIN TROUGH [CHEM] Routine 01/06/19 05:11 CBC WITH AUTO DIFF [HEME] AM CMP [COMPREHENSIVE METABOLIC PN,CMP] [CHEM] AM LIPASE [CHEM] AM 01/07/19 05:11 CBC WITH AUTO DIFF [HEME] AM CMP [COMPREHENSIVE METABOLIC PN,CMP] [CHEM] AM - Plan Plan:: This 38 year old female admitted with gram negative ruy bacteremia, pancreatitis , UTI and L groin draining abscess 1. Gram negative Ruy bacteremia: Likely secondary to UTI. Cover with Zosyn. Repeat BC this am. Await ROBERTO of BC from ED. 2. Pyelonephritis: Zosyn, UC pending. 3. L groin abscess: Improving, continue daily dressing changes. Wound culture obtained, tunneling noted. Continue Vancomycin and Zosyn for MRSA. 4. Pancreatitis: No pain. Eager to eat. Will decrease fluids due to liver disease. advance diet as tolerated. Monitor lipase. 5. Transaminitis: Hx of mildly elevated LFTs. MRCP no biliary stoned. Bilirubin improved. Has extensive alcohol abuse history, quit heavily drinking 2 months ago. Hepatitis panel pending. Follow up with GI as outpatient 6. Thrombocytopenia: Monitor. Likely secondary to liver disease. 7. Seizure disorder: Continue Keppra. Referral to Neurology as outpatient. VTE prophylaxis: SCDs only due to thrombocytopenia. Dispo: 2-3 days pending improvement
[2019-01-06] MEDS: Piperacillin/Tazobactam 4.5 GM in Sodium Chloride 0.9% 100 ML IV SCH ×4 (02:34→21:03)
[2019-01-06] MEDS: Sodium Chloride 0.9% 1,000 ML IV SCH (03:46)
[2019-01-06 05:33] LABS: CHLORIDE,CL 109 mmol/L (98-107); SODIUM,NA 140 mmol/L (136-145)
[2019-01-06] MEDS: Potassium Chloride 10% 20 MEQ/15 ML Soln 30 ML UD Cup PO ONE ×2 (08:29→08:50)
[2019-01-06] MEDS: levETIRAcetam 500 MG Tab PO SCH ×2 (08:30→21:04)
[2019-01-06] MEDS ORDERED: Potassium Chloride 20 MEQ Tab.ER PO ONE (08:41)
[2019-01-06] MEDS ORDERED: Magnesium Sulfate/Water 2 GM in Premix Bag 1 BAG IV ONE (09:19)
--- NOTE | 2019-01-06 09:43 | PCM.PN ---
- General Info Date of Service: 01/06/19 Admission Dx/Problem (Free Text): Admission Diagnosis/Problem Admission Diagnosis/Problem Positive blood culture, pancreatitis, Pyelonephritis Subjective Update: Continues to do well this morning, No chest pain. Abdominal pain is nearly gone as well as flank pain. Has tenderness to L perineum. Functional Status: Reports: Pain Controlled, Tolerating Diet, Ambulating, Urinating - Review of Systems General: Reports: No Symptoms. Denies: Weakness, Fatigue, Malaise Pulmonary: Reports: No Symptoms. Denies: Shortness of Breath Cardiovascular: Reports: No Symptoms. Denies: Chest Pain Gastrointestinal: Reports: No Symptoms, Flatus. Denies: Abdominal Pain, Diarrhea, Nausea, Vomiting Musculoskeletal: Reports: No Symptoms. Denies: Neck Pain Neurological: Reports: No Symptoms Psychiatric: Reports: No Symptoms - Patient Data Vitals - Most Recent: Last Vital Signs Temp 98.7 F 01/06/19 03:51 Pulse 67 01/06/19 03:51 Resp 18 01/06/19 03:51 BP 102/57 L 01/06/19 03:51 Pulse Ox 93 L 01/06/19 03:51 Weight - Most Recent: 63.458 kg I&O - Last 24 Hours: Intake & Output 01/05/19 01/06/19 01/06/19 22:59 06:59 14:59 Intake Total 350 1563 Output Total 1500 Balance -1150 1563 Lab Results Last 24 Hours: Laboratory Results - last 24 hr 01/04/19 01/05/19 01/06/19 Range/Units 09:09 10:50 04:50 WBC 12.18 H (4.0-11.0) K/uL RBC 4.14 L (4.30-5.90) M/uL Hgb 12.9 (12.0-16.0) g/dL Hct 38.9 (36.0-46.0) % MCV 94.0 (80.0-98.0) fL MCH 31.2 (27.0-32.0) pg MCHC 33.2 (31.0-37.0) g/dL RDW Std Deviation 51.3 (28.0-62.0) fl RDW Coeff of Kenny 15 (11.0-15.0) % Plt Count 125 L (150-400) K/uL MPV 11.40 (7.40-12.00) fL Neut % (Auto) 77.4 (48.0-80.0) % Lymph % (Auto) 11.4 L (16.0-40.0) % [place] % (Auto) 9.3 (0.0-15.0) % Eos % (Auto) 1.6 (0.0-7.0) % Baso % (Auto) 0.3 (0.0-1.5) % Neut # (Auto) 9.4 H (1.4-5.7) K/uL Lymph # (Auto) 1.4 (0.6-2.4) K/uL [place] # (Auto) 1.1 H (0.0-0.8) K/uL Eos # (Auto) 0.2 (0.0-0.7) K/uL Baso # (Auto) 0.0 (0.0-0.1) K/uL Nucleated RBC % 0.0 /100WBC Nucleated RBCs # 0 K/uL Sodium (136-145) mmol/L Potassium (3.5-5.1) mmol/L Chloride (98-107) mmol/L Carbon Dioxide (21.0-32.0) mmol/L BUN (7.0-18.0) mg/dL Creatinine (0.6-1.0) mg/dL Est Cr Clr Drug Dosing mL/min Estimated GFR (MDRD) ml/min Glucose (74-106) mg/dL Calcium (8.5-10.1) mg/dL Magnesium (1.8-2.4) mg/dL Total Bilirubin (0.2-1.0) mg/dL AST (15-37) IU/L ALT (14-63) IU/L Alkaline Phosphatase (46-116) U/L Total Protein (6.4-8.2) g/dL Albumin (3.4-5.0) g/dL Globulin (2.6-4.0) g/dL Albumin/Globulin Ratio (0.9-1.6) Lipase (73-393) U/L Vancomycin Trough 10.7 H (5.0-10.0) ug/mL Hepatitis A IgM Ab Negative (Negative) Hep Bs Antigen Negative (Negative) Hep B Core IgM Ab Negative (Negative) Hepatitis C Antibody <0.1 (0.0-0.9) s/co ratio 01/06/19 01/06/19 Range/Units 04:50 04:50 WBC (4.0-11.0) K/uL RBC (4.30-5.90) M/uL Hgb (12.0-16.0) g/dL Hct (36.0-46.0) % MCV (80.0-98.0) fL MCH (27.0-32.0) pg MCHC (31.0-37.0) g/dL RDW Std Deviation (28.0-62.0) fl RDW Coeff of Kenny (11.0-15.0) % Plt Count (150-400) K/uL MPV (7.40-12.00) fL Neut % (Auto) (48.0-80.0) % Lymph % (Auto) (16.0-40.0) % [place] % (Auto) (0.0-15.0) % Eos % (Auto) (0.0-7.0) % Baso % (Auto) (0.0-1.5) % Neut # (Auto) (1.4-5.7) K/uL Lymph # (Auto) (0.6-2.4) K/uL [place] # (Auto) (0.0-0.8) K/uL Eos # (Auto) (0.0-0.7) K/uL Baso # (Auto) (0.0-0.1) K/uL Nucleated RBC % /100WBC Nucleated RBCs # K/uL Sodium 140 (136-145) mmol/L Potassium 3.0 L (3.5-5.1) mmol/L Chloride 109 H (98-107) mmol/L Carbon Dioxide 22.1 (21.0-32.0) mmol/L BUN 7 (7.0-18.0) mg/dL Creatinine 0.5 L (0.6-1.0) mg/dL Est Cr Clr Drug Dosing 146.90 mL/min Estimated GFR (MDRD) > 60.0 ml/min Glucose 104 (74-106) mg/dL Calcium 7.2 L (8.5-10.1) mg/dL Magnesium 1.6 L (1.8-2.4) mg/dL Total Bilirubin 1.4 H (0.2-1.0) mg/dL AST 47 H (15-37) IU/L ALT 308 H (14-63) IU/L Alkaline Phosphatase 169 H (46-116) U/L Total Protein 4.7 L (6.4-8.2) g/dL Albumin 1.7 L (3.4-5.0) g/dL Globulin 3.0 (2.6-4.0) g/dL Albumin/Globulin Ratio 0.6 L (0.9-1.6) Lipase 2945 H (73-393) U/L Vancomycin Trough (5.0-10.0) ug/mL Hepatitis A IgM Ab (Negative) Hep Bs Antigen (Negative) Hep B Core IgM Ab (Negative) Hepatitis C Antibody (0.0-0.9) s/co ratio Darryl Results Last 24 Hours: Microbiology 01/03/19 17:58 Urine Culture - Final Urine, Clean Catch Escherichia Coli 01/05/19 06:05 Aerobic Blood Culture - Preliminary Blood - Venous - Lab Draw NO GROWTH AFTER 1 DAY Anaerobic Blood Culture - Preliminary NO GROWTH AFTER 1 DAY 01/05/19 05:55 Aerobic Blood Culture - Preliminary Blood - Venous NO GROWTH AFTER 1 DAY Anaerobic Blood Culture - Preliminary NO GROWTH AFTER 1 DAY Med Orders - Current: Current Medications Piperacillin Sod/Tazobactam (Sod 4.5 gm/ Sodium Chloride) 100 mls @ 100 mls/hr IV Q6H [facility] Last Admin: 01/06/19 08:53 Dose: 100 mls/hr Vancomycin HCl 1.25 gm/ Sodium (Chloride) 250 mls @ 166.667 mls/hr IV Q8H [facility] Last Admin: 01/06/19 03:47 Dose: 166.667 mls/hr Magnesium Sulfate 2 gm/ Premix 50 mls @ 50 mls/hr IV ONETIME ONE Stop: 01/06/19 10:18 Levetiracetam (Keppra) 500 mg PO BID [facility] Last Admin: 01/06/19 08:30 Dose: 500 mg Ondansetron HCl (Zofran) 4 mg IVPUSH Q4H PRN PRN Reason: Nausea Sodium Chloride (Saline Flush) 2.5 ml FLUSH ASDIRECTED PRN PRN Reason: Keep Vein Open Vancomycin HCl (Pharmacy To Dose - Vancomycin) 1 dose .XX ASDIRECTED [facility] Discontinued Medications Acetaminophen (Tylenol) 650 mg PO Q4H PRN PRN Reason: Pain (mild 1-3) Gadobenate Dimeglumine (Multihance) 11 ml IVPUSH ONETIME STA Stop: 01/04/19 12:50 Last Admin: 01/04/19 12:50 Dose: 11 ml Sodium Chloride (Normal Saline) 1,000 mls @ 999 mls/hr IV ASDIRECTED [facility] Stop: 01/05/19 09:01 Last Admin: 01/04/19 09:22 Dose: 999 mls/hr Sodium Chloride (Normal Saline) 1,000 mls @ 200 mls/hr IV ASDIRECTED [facility] Last Admin: 01/05/19 08:33 Dose: 200 mls/hr Vancomycin HCl 1 gm/ Sodium (Chloride) 250 mls @ 166.667 mls/hr IV Q8H [facility] Last Admin: 01/04/19 18:03 Dose: Not Given Vancomycin HCl 1 gm/ Sodium (Chloride) 250 mls @ 166.667 mls/hr IV Q8H [facility] Last Admin: 01/05/19 14:02 Dose: Not Given Vancomycin HCl 1.25 gm/ Sodium (Chloride) 250 mls @ 166.667 mls/hr IV Q8H [facility] Sodium Chloride (Normal Saline) 1,000 mls @ 100 mls/hr IV ASDIRECTED [facility] Last Admin: 01/06/19 03:46 Dose: 100 mls/hr Iopamidol (Isovue Multipack-370 (76%)) 75 ml IVPUSH ONETIME STA Stop: 01/04/19 09:55 Last Admin: 01/04/19 10:02 Dose: 85 ml Potassium Chloride (Potassium Chloride) 40 meq PO ONETIME ONE Stop: 01/06/19 07:51 Last Admin: 01/06/19 08:50 Dose: Not Given Potassium Chloride (Klor-Con M20) 40 meq PO ONETIME ONE Stop: 01/06/19 08:42 Last Admin: 01/06/19 09:00 Dose: 40 meq - Exam General: Alert, Oriented, Cooperative Lungs: Clear to Auscultation, Normal Respiratory Effort Cardiovascular: Regular Rate, Regular Rhythm GI/Abdominal Exam: Normal Bowel Sounds, Soft, Tender (scant tenderness with palpation) Back Exam: Normal Inspection, Full Range of Motion Wound/Incisions: Dressing Dry and Intact, No Drainage, Erythema Improving (L perineum) Psy/Mental Status: Alert, Normal Affect, Normal Mood - Problem List & Annotations (1) Bacteremia due to Gram-negative bacteria SNOMED Code(s): 370090187753 Code(s): R78.81 - BACTEREMIA Status: Acute Current Visit: Yes (2) Pancreatitis SNOMED Code(s): 41955922 Code(s): K85.90 - ACUTE PANCREATITIS WITHOUT NECROSIS OR INFECTION, UNSP Status: Acute Current Visit: Yes Qualifiers: Chronicity: acute Pancreatitis type: alcohol induced (3) Abscess SNOMED Code(s): 604059012 Code(s): L02.91 - CUTANEOUS ABSCESS, UNSPECIFIED Status: Acute Current Visit: Yes (4) Thrombocytopenia SNOMED Code(s): 973098610 Code(s): D69.6 - THROMBOCYTOPENIA, UNSPECIFIED Status: Acute Current Visit: Yes (5) UTI (urinary tract infection) SNOMED Code(s): 71376221 Code(s): N39.0 - URINARY TRACT INFECTION, SITE NOT SPECIFIED Status: Acute Current Visit: Yes (6) Transaminitis SNOMED Code(s): 223194322, 016362831 Code(s): R74.0 - NONSPEC ELEV OF LEVELS OF TRANSAMNS & LACTIC ACID DEHYDRGNSE Status: Acute Current Visit: No (7) Hx of gastric bypass SNOMED Code(s): 024872974 Code(s): Z98.84 - BARIATRIC SURGERY STATUS Status: Chronic Current Visit : Yes (8) Fibromyalgia SNOMED Code(s): 439255815 Code(s): M79.7 - FIBROMYALGIA Status: Chronic Current Visit: No (9) Hx of seizure disorder SNOMED Code(s): 415216207 Code(s): Z86.69 - PERSONAL HISTORY OF DIS OF THE NERVOUS SYS AND SENSE ORGANS Status: Chronic Current Visit: No - Problem List Review Problem List Initiated/Reviewed/Updated: Yes - My Orders Last 24 Hours: My Active Orders 01/05/19 12:30 Vancomycin 1.25 gm Sodium Chloride 0.9% [Normal Saline] 250 ml IV Q8H 01/06/19 09:19 Magnesium Sulfate/Water [Magnesium Sulfate in Water Premix] 2 gm Premix Bag 1 bag IV ONETIME 01/06/19 Breakfast Regular Diet [DIET] 01/07/19 05:11 CBC WITH AUTO DIFF [HEME] AM CMP [COMPREHENSIVE METABOLIC PN,CMP] [CHEM] AM - Plan Plan:: This 38 year old female admitted with gram negative ruy bacteremia, pancreatitis , UTI and L groin draining abscess 1. Gram negative Ruy bacteremia: Likely secondary to UTI. Cover with Zosyn. Repeat BC no growth x 1 day. Await DARRYL of BC from ED. 2. Pyelonephritis: Zosyn, UC pending. 3. L groin abscess: Improving, continue daily dressing changes. Wound culture obtained, tunneling noted. Continue Vancomycin and Zosyn 4. Pancreatitis: Improving. Lipase decreasing. Will allow regular diet. Stop IVFs 5. Transaminitis: Improving. Monitor. Has extensive alcohol abuse history, quit heavily drinking 2 months ago. Hepatitis panel pending. Follow up with GI as outpatient 6. Thrombocytopenia: Improving, 125,000 today. 7. Seizure disorder: Continue Keppra. Referral to Neurology as outpatient. VTE prophylaxis: SCDs only due to thrombocytopenia. Dispo: 1-2 days pending improvement
[2019-01-07] MEDS: Piperacillin/Tazobactam 4.5 GM in Sodium Chloride 0.9% 100 ML IV SCH ×2 (02:56→08:12)
[2019-01-07 05:46] LABS: CHLORIDE,CL 111 mmol/L (98-107); SODIUM,NA 142 mmol/L (136-145)
[2019-01-07] MEDS: levETIRAcetam 500 MG Tab PO SCH (08:13)
--- NOTE | 2019-01-07 12:04 | PCM.DCSUM1 ---
Discharge Summary - Hospital Course Brief History: This 38 year old female with pmh of seizure disorder, alcohol abuse, gastric bypass was directly admitted from home after 1 set of blood cultures return positive with gram negative rods. She was seen in the ED last evening with complaints of abdominal pain not feeling well and sore to her L groin. She reports for the last 2 weeks she has not felt well having chills and fevers at home, headaches, abdominal pain with bloating, flank pain and back pain. She reports the groin sore started as a boil it then opened and drained chunky maroon fluid 3 days ago. She reports since then it has been an open wound with little drainage, but has significant pain with sitting. She denies urinary symptoms, no frequency or urgency, maybe slightly darker urine. She reports she has been able to eat and drink ok, no change in pain and no nausea or vomiting. She reports her last seizure was 1 week ago, she currently ran out of her Keppra. Repeat labwork this morning reveals WBC 10,270, platelets 58,000 , lactate 0.8, BUN 12, Cr 0.6 Bili 1.9 AST 63, ALT 700, alk phos 225, Lipase 3750, Tylenol level 2.7. HCG negative. CXR negative. Abd U/S cholecystectomy, with noted 3.0 hypoechoic lesion, likely hemangioma. BC obtained yesterday, returned overnight gram negative rods 1/4 bottles so far. She was treated with Nitrofurantoin for UTI. UC sent. CT angio of chest and CT of abd/pelvis obtained this morning after admission, this reveals NO PE, mild generalized anasarca, omental and mesenteric stranding, free pelvis fluid, R hepatic lobe hemangioma. Spoke with Dr Garzon, not enough fluid for paracentesis. No focal stranding near pancreas and imaging did not go low enough to visualize L groin wound. She will be admitted inpatient for bacteremia with gram negative rods, UTI, pancreatitis and L groin wound. Diagnosis: Stroke: No - Discharge Data Discharge Date: 01/07/19 Discharge Disposition: Home, Self-Care 01 Condition: Good - Discharge Diagnosis/Problem(s) (1) Bacteremia due to Gram-negative bacteria SNOMED Code(s): 826808088554 ICD Code: R78.81 - BACTEREMIA Status: Acute Current Visit: Yes (2) Pancreatitis SNOMED Code(s): 90068416 ICD Code: K85.90 - ACUTE PANCREATITIS WITHOUT NECROSIS OR INFECTION, UNSP Status: Acute Current Visit: Yes Qualifiers: Chronicity: acute Pancreatitis type: alcohol induced (3) Abscess SNOMED Code(s): 554443719 ICD Code: L02.91 - CUTANEOUS ABSCESS, UNSPECIFIED Status: Acute Current Visit: Yes (4) Thrombocytopenia SNOMED Code(s): 204859011 ICD Code: D69.6 - THROMBOCYTOPENIA, UNSPECIFIED Status: Acute Current Visit: Yes (5) UTI (urinary tract infection) SNOMED Code(s): 28353272 ICD Code: N39.0 - URINARY TRACT INFECTION, SITE NOT SPECIFIED Status: Acute Current Visit: Yes (6) Transaminitis SNOMED Code(s): 892959425, 173644057 ICD Code: R74.0 - NONSPEC ELEV OF LEVELS OF TRANSAMNS & LACTIC ACID DEHYDRGNSE Status: Acute Current Visit: No (7) Hx of gastric bypass SNOMED Code(s): 108181170 ICD Code: Z98.84 - BARIATRIC SURGERY STATUS Status: Chronic Current Visit : Yes (8) Fibromyalgia SNOMED Code(s): 860753308 ICD Code: M79.7 - FIBROMYALGIA Status: Chronic Current Visit: No (9) Hx of seizure disorder SNOMED Code(s): 918643498 ICD Code: Z86.69 - PERSONAL HISTORY OF DIS OF THE NERVOUS SYS AND SENSE ORGANS Status: Chronic Current Visit: No - Patient Summary/Data Consults: Consultations 01/04/19 11:16 Consult to Physician [CONS] Routine - Patient Instructions Diet: GI Soft/Low Residue/Low Fiber Activity: As Tolerated Driving: Do Not Drive Showering/Bathing: May Shower Wound/Incision Care: Change Dressing Daily (to L perineum until healed) - Discharge Plan *PRESCRIPTION DRUG MONITORING PROGRAM REVIEWED*: Not Applicable *COPY OF PRESCRIPTION DRUG MONITORING REPORT IN PATIENT ANNY: Not Applicable Prescriptions/Med Rec: levETIRAcetam [Keppra] 500 mg PO BID #60 tablet levoFLOXacin [Levaquin] 750 mg PO DAILY #10 tab Home Medications: Home Meds levETIRAcetam [Keppra] 500 mg PO BID #60 tablet 01/07/19 [Rx] levoFLOXacin [Levaquin] 750 mg PO DAILY #10 tab 01/07/19 [Rx] Oxygen Therapy Mode: Room Air Patient Handouts: Acute Pancreatitis, [id number], Levetiracetam tablets, Levofloxacin tablets, Bacteremia Referrals: Nadira Thomas NP [Ordering Only Provider] - 01/26/19 10:30 am Ashley Guo MD [Physician] - 02/01/19 3:45 pm Jennifer Dill PA [Physician Materials Handling Equipment Operator] - 01/17/19 1:00 pm - Discharge Summary/Plan Comment DC Time >30 min.: No Discharge Summary/Plan Comment: Admitting Diagnoses: Positive blood culture, rule out bacteremia UTI L groin abscess-draining Pancreatitis Transaminitis Thrombocytopenia Discharge Diagnosis E coli bacteremia Pyelonephritis-E coli Alcohol induced cirrhosis Pancreatitis L groin abscess Other PMH Alcohol abuse Seizure disorder Hx cholecystectomy Tova was admitted and treated for suspected gram neg bri bacteremia and UTI. Imaging with MRCP revealed pyelonephritis, no biliary stones noted. No focal stranding or edema around pancreas. Lipase remained elevated, but abdominal pain improved with antibiotic treatment of pyelonephritis. She was given IVFs. Toelrated these well with mild ascites noted. Blood cultures repeated, which returned negative. UC and initial BC returned with E Coli. Transaminitis improved with hydration along with bilirubin. Se steadily improved. Today she is feeling much better and eager to go home. Labwork improving. She will be continued on Levaquin for 10 more days, total of 14 days for bacteremia and pyelonephritis. She was also noted to have L groin abscess which had been draining and appeared very clean with with little erythema. Dr Mejía, OB/FYn consulted, recommended continued packing and antibiotics. Tova was educated on good perineal hygiene and keeping wound clean and packed daily. Tova has hx of seizure disorder and has not been on Keppra as she reports PCP will not prescribe until she is evaluated by neurology. I will send month supply and referral for neurology for seizures. I will also set up referral for GI to evaluate liver. Hepatitis panel negative, likely secondary to alcohol abuse. Highly encouraged sobriety. She did not go through withdrawals during admission, as she has cut back on drinking in the last 2 months significantly. She will be discharged today. She is also to follow up with PCP as scheduled. Return to ED or clinic if concerns should arise. - General Info Date of Service: 01/07/19 Admission Dx/Problem (Free Text: Admission Diagnosis/Problem Admission Diagnosis/Problem Positive blood culture, pancreatitis, Pyelonephritis Subjective Update: Doing well today. Eating and drinking well. No pain. passing gas and having BMs. Groin is tender, but pain is much improved and no drainage. Continued dressing changes. Functional Status: Reports: Pain Controlled, Tolerating Diet, Ambulating, Urinating - Review of Systems General: Reports: No Symptoms. Denies: Fever, Fatigue, Malaise HEENT: Reports: No Symptoms. Denies: Headaches, Sore Throat, Visual Changes Pulmonary: Reports: No Symptoms. Denies: Shortness of Breath Cardiovascular: Reports: No Symptoms. Denies: Chest Pain Gastrointestinal: Reports: Other (bloated). Denies: Abdominal Pain, Nausea, Vomiting Genitourinary: Reports: No Symptoms Musculoskeletal: Reports: No Symptoms Skin: Reports: No Symptoms Neurological: Reports: No Symptoms Psychiatric: Reports: No Symptoms - Patient Data Vitals - Most Recent: Last Vital Signs Temp 98 F 01/07/19 07:40 Pulse 67 01/07/19 07:40 Resp 16 01/07/19 07:40 BP 99/60 01/07/19 07:40 Pulse Ox 96 01/07/19 08:00 Weight - Most Recent: 63.458 kg I&O - Last 24 hours: Intake & Output 01/06/19 01/07/19 01/07/19 22:59 06:59 14:59 Intake Total 1790 3140 100 Output Total 1050 2000 Balance 740 1140 100 Lab Results - Last 24 hrs: Laboratory Results - last 24 hr 01/07/19 01/07/19 Range/Units 05:05 05:05 WBC 13.72 H (4.0-11.0) K/uL RBC 4.03 L (4.30-5.90) M/uL Hgb 12.5 (12.0-16.0) g/dL Hct 38.1 (36.0-46.0) % MCV 94.5 (80.0-98.0) fL MCH 31.0 (27.0-32.0) pg MCHC 32.8 (31.0-37.0) g/dL RDW Std Deviation 51.9 (28.0-62.0) fl RDW Coeff of Kenny 15 (11.0-15.0) % Plt Count 177 (150-400) K/uL MPV 11.60 (7.40-12.00) fL Neut % (Auto) 77.3 (48.0-80.0) % Lymph % (Auto) 11.6 L (16.0-40.0) % Mathews % (Auto) 9.6 (0.0-15.0) % Eos % (Auto) 1.0 (0.0-7.0) % Baso % (Auto) 0.5 (0.0-1.5) % Neut # (Auto) 10.6 H (1.4-5.7) K/uL Lymph # (Auto) 1.6 (0.6-2.4) K/uL Mathews # (Auto) 1.3 H (0.0-0.8) K/uL Eos # (Auto) 0.1 (0.0-0.7) K/uL Baso # (Auto) 0.1 (0.0-0.1) K/uL Nucleated RBC % 0.0 /100WBC Nucleated RBCs # 0 K/uL Sodium 142 (136-145) mmol/L Potassium 3.7 (3.5-5.1) mmol/L Chloride 111 H (98-107) mmol/L Carbon Dioxide 22.6 (21.0-32.0) mmol/L BUN 7 (7.0-18.0) mg/dL Creatinine 0.5 L (0.6-1.0) mg/dL Est Cr Clr Drug Dosing 146.90 mL/min Estimated GFR (MDRD) > 60.0 ml/min Glucose 114 H (74-106) mg/dL Calcium 7.1 L (8.5-10.1) mg/dL Total Bilirubin 0.8 (0.2-1.0) mg/dL AST 33 (15-37) IU/L ALT 240 H (14-63) IU/L Alkaline Phosphatase 145 H (46-116) U/L Total Protein 4.9 L (6.4-8.2) g/dL Albumin 1.8 L (3.4-5.0) g/dL Globulin 3.1 (2.6-4.0) g/dL Albumin/Globulin Ratio 0.6 L (0.9-1.6) Lipase 3453 H (73-393) U/L ROBERTO Results - Last 24 hrs: Microbiology 01/05/19 06:05 Aerobic Blood Culture - Preliminary Blood - Venous - Lab Draw NO GROWTH AFTER 2 DAYS Anaerobic Blood Culture - Preliminary NO GROWTH AFTER 2 DAYS 01/05/19 05:55 Aerobic Blood Culture - Preliminary Blood - Venous NO GROWTH AFTER 2 DAYS Anaerobic Blood Culture - Preliminary NO GROWTH AFTER 2 DAYS 01/03/19 17:58 Urine Culture - Final Urine, Clean Catch Escherichia Coli Med Orders - Current: Current Medications Piperacillin Sod/Tazobactam (Sod 4.5 gm/ Sodium Chloride) 100 mls @ 100 mls/hr IV Q6H [facility] Last Admin: 01/07/19 08:12 Dose: 100 mls/hr Vancomycin HCl 1.25 gm/ Sodium (Chloride) 250 mls @ 166.667 mls/hr IV Q8H [facility] Last Admin: 01/07/19 04:13 Dose: 166.667 mls/hr Levetiracetam (Keppra) 500 mg PO BID [facility] Last Admin: 01/07/19 08:13 Dose: 500 mg Ondansetron HCl (Zofran) 4 mg IVPUSH Q4H PRN PRN Reason: Nausea Sodium Chloride (Saline Flush) 2.5 ml FLUSH ASDIRECTED PRN PRN Reason: Keep Vein Open Vancomycin HCl (Pharmacy To Dose - Vancomycin) 1 dose .XX ASDIRECTED [facility] Discontinued Medications Acetaminophen (Tylenol) 650 mg PO Q4H PRN PRN Reason: Pain (mild 1-3) Gadobenate Dimeglumine (Multihance) 11 ml IVPUSH ONETIME STA Stop: 01/04/19 12:50 Last Admin: 01/04/19 12:50 Dose: 11 ml Sodium Chloride (Normal Saline) 1,000 mls @ 999 mls/hr IV ASDIRECTED [facility] Stop: 01/05/19 09:01 Last Admin: 01/04/19 09:22 Dose: 999 mls/hr Sodium Chloride (Normal Saline) 1,000 mls @ 200 mls/hr IV ASDIRECTED [facility] Last Admin: 01/05/19 08:33 Dose: 200 mls/hr Vancomycin HCl 1 gm/ Sodium (Chloride) 250 mls @ 166.667 mls/hr IV Q8H [facility] Last Admin: 01/04/19 18:03 Dose: Not Given Vancomycin HCl 1 gm/ Sodium (Chloride) 250 mls @ 166.667 mls/hr IV Q8H [facility] Last Admin: 01/05/19 14:02 Dose: Not Given Vancomycin HCl 1.25 gm/ Sodium (Chloride) 250 mls @ 166.667 mls/hr IV Q8H [facility] Sodium Chloride (Normal Saline) 1,000 mls @ 100 mls/hr IV ASDIRECTED [facility] Last Admin: 01/06/19 03:46 Dose: 100 mls/hr Magnesium Sulfate 2 gm/ Premix 50 mls @ 50 mls/hr IV ONETIME ONE Stop: 01/06/19 10:18 Last Admin: 01/06/19 10:17 Dose: 50 mls/hr Iopamidol (Isovue Multipack-370 (76%)) 75 ml IVPUSH ONETIME STA Stop: 01/04/19 09:55 Last Admin: 01/04/19 10:02 Dose: 85 ml Potassium Chloride (Potassium Chloride) 40 meq PO ONETIME ONE Stop: 01/06/19 07:51 Last Admin: 01/06/19 08:50 Dose: Not Given Potassium Chloride (Klor-Con M20) 40 meq PO ONETIME ONE Stop: 01/06/19 08:42 Last Admin: 01/06/19 09:00 Dose: 40 meq - Exam General: Reports: Alert, Oriented, Cooperative, No Acute Distress Lungs: Reports: Clear to Auscultation, Normal Respiratory Effort Cardiovascular: Reports: Regular Rate, Regular Rhythm GI/Abdominal Exam: Normal Bowel Sounds, Soft, Non-Tender, Other (ascites noted, small amount) Extremities: Normal Inspection, Normal Range of Motion, Non-Tender, No Pedal Edema Wound/Incisions: Reports: Erythema Improving (erythema gone, no fluctuance, induration or drainage to L groin wound. healthy tissues noted once packing removed. ) Neurological: Reports: No New Focal Deficit Psy/Mental Status: Reports: Alert, Normal Affect, Normal Mood *Q Meaningful Use (DIS) - VTE *Q VTE Pharmacological Contraindications *Q: Thrombocytopenia
== END 2019-01-07 13:44 | disposition home or self-care (01) | DRG 463 ==
LOC: MW.MS 06:57 → OBSVTOIN 08:31
PROVIDERS: ADMIT Internal Medicine; ATTEND Internal Medicine
DX: N12 Tubulo-interstitial nephritis, not specified as acute or chronic (principal); K85.90 Acute pancreatitis without necrosis or infection, unspecified; G40.909 Epilepsy, unspecified, not intractable, without status epilepticus; L02.214 Cutaneous abscess of groin; J44.9 Chronic obstructive pulmonary disease, unspecified; M19.91 Primary osteoarthritis, unspecified site; M54.9 Dorsalgia, unspecified; G89.29 Other chronic pain; M79.7 Fibromyalgia; G43.109 Migraine with aura, not intractable, without status migrainosus; F41.9 Anxiety disorder, unspecified; F17.210 Nicotine dependence, cigarettes, uncomplicated; R78.81 Bacteremia; D69.6 Thrombocytopenia, unspecified; R74.0 Nonspecific elevation of levels of transaminase and lactic acid dehydrogenase [LDH]; B96.20 Unspecified Escherichia coli [E. coli] as the cause of diseases classified elsewhere; K70.30 Alcoholic cirrhosis of liver without ascites; Z98.84 Bariatric surgery status; Z88.1 Allergy status to other antibiotic agents; Z90.49 Acquired absence of other specified parts of digestive tract; Z88.5 Allergy status to narcotic agent; Z90.89 Acquired absence of other organs; Z79.899 Other long term (current) drug therapy
CPT/HCPCS: 36415; 71275; 71275-26; 74177; 74177-26; 74183; 74183-26; 80053; 80074; 80202; 83605; 83690; 83735; 85025; 85610; 87040; 87070; 87086; 87088; 87186; A4217; A9270-GY; A9577; G0480; J2543; J3370; J3475; J7030; J7040; J7050; Q9967

== ENCOUNTER 2019-03-11 10:02 | Emergency (ER) | payer BC ==
--- NOTE | 2019-03-11 10:35 | EDM.PDOC ---
ED HPI GENERAL MEDICAL PROBLEM - General Chief Complaint: Neurological Problem Stated Complaint: SEIZURE Time Seen by Provider: 03/11/19 10:27 Source of Information: Reports: Patient History Limitations: Reports: No Limitations - History of Present Illness INITIAL COMMENTS - FREE TEXT/NARRATIVE: HISTORY AND PHYSICAL: History of present illness: Patient is a 38-year-old female presents to the ED with complaint of seizures. She states she has been out of her Keppra for the past 6 weeks. She has been having seizures since but they have been more frequent the past couple of days. They have been unwitnessed and she can not tell me how many she's had or how long they have lasted. She is concerned she may have an infection. She states she was hospitalized for urosepsis a couple of months ago. She states she's had a cough.She denies dysuria, hematuria, fevers, chills, chest pain, shortness of breath, nausea, vomiting, abdominal pain. Review of systems: As per history of present illness and below otherwise all systems reviewed and negative. Past medical history: As per history of present illness and as reviewed below otherwise noncontributory. Surgical history: As per history of present illness and as reviewed below otherwise noncontributory. Social history: No reported history of drug or alcohol abuse. Family history: As per history of present illness and as reviewed below otherwise noncontributory. Physical exam: General: Patient sitting comfortably in no acute distress and nontoxic appearing HEENT: Atraumatic, normocephalic, pupils reactive, negative for conjunctival pallor or scleral icterus, mucous membranes moist, throat clear, neck supple, nontender, trachea midline. No meningeal signs. Lungs: Clear to auscultation, breath sounds equal bilaterally, chest nontender. Heart: S1S2, regular, negative for clicks, rubs, or overt murmur. Abdomen: Soft, nondistended, nontender. Negative for masses or hepatosplenomegaly. Negative for costovertebral tenderness. No rigidity, rebound , guarding. Pelvis: Stable nontender. Genitourinary: Deferred. Rectal: Deferred. Extremities: Atraumatic, negative for cords or calf pain. Neurovascular unremarkable. Neuro: Awake, alert, oriented. Cranial nerves II through XII unremarkable. Cerebellum unremarkable. Motor and sensory unremarkable throughout. Exam nonfocal. Notes: Diagnostics: CBC, CMP, EKG, CXR, UA Therapeutics: none Prescriptions: Keppra Impression: UTI, history of seizure disorder Plan: Take medications as instructed Follow up with primary care provider Return to ED as needed as discussed Definitive disposition and diagnosis as appropriate pending reevaluation and review of above. - Related Data Allergies Allergy/AdvReac Type Severity Reaction Status Date / Time red dye Allergy Severe Anaphylactic Verified 01/04/19 09:12 Shock cephalexin Allergy Rash Verified 01/04/19 09:12 Cephalosporins Allergy Difficulty Verified 01/04/19 09:12 Breathing meperidine [From Demerol] Allergy Rash Verified 01/04/19 09:12 morphine Allergy Tachycardia Verified 01/04/19 09:12 Opioids - Morphine Analogues Allergy Tachycardia Verified 01/04/19 09:12 opium alkaloids Allergy Difficulty Uncoded 01/04/19 09:19 Breathing Home Meds: Home Meds levETIRAcetam [Keppra] 500 mg PO BID #60 tablet 01/07/19 [Rx] Nitrofurantoin Monohyd/M-Cryst [Macrobid 100 mg Capsule] 100 mg PO BID 7 Days # 14 capsule 03/11/19 [Rx] levETIRAcetam [Keppra] 500 mg PO BID #20 tablet 03/11/19 [Rx] Past Medical History HEENT History: Reports: None, Other (See Below) Other HEENT History: sinus polyps Cardiovascular History: Reports: None Respiratory History: Reports: Asthma, Bronchitis, Recurrent, COPD Gastrointestinal History: Reports: Cholelithiasis, Hemorrhoids, Irritable Bowel Syndrome Other Gastrointestinal History: hx gastric ulcer Genitourinary History: Reports: None, Other (See Below) Other Genitourinary History: HPV 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: Dysfunctional Uterine Bleeding, Other (See Below), Other LEAD W[employer]HOUSE ASSOCIATE History: history of vaginal hysterectomy without removal of ovaries Musculoskeletal History: Reports: Arthritis, Back Pain, Chronic, Fibromyalgia, Other (See Below) Other Musculoskeletal History: scoliosis Neurological History: Reports: Head Trauma, Migraines, Seizure Psychiatric History: Reports: Anxiety, None, Panic Attack Endocrine/Metabolic History: Reports: None, Other (See Below) Other Endocrine/Metabolic History: hypoglycemia Hematologic History: Reports: Anemia, Blood Transfusion(s), Transfusion Reaction Other Hematologic History: states had some sort of reaction with first blood transfusion 5 yrs ago, but unsure what it was Immunologic History: Reports: None Oncologic (Cancer) History: Reports: None Dermatologic History: Reports: None - Infectious Disease History Infectious Disease History: Reports: Chicken Pox - Past Surgical History Head Surgeries/Procedures: Reports: None HEENT Surgical History: Reports: Adenoidectomy, Tonsillectomy GI Surgical History: Reports: Bariatric Procedure, Cholecystectomy Female Surgical History: Reports: Hysterectomy - History Comment History Comment: Identical twin, 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 Social & Family History - Family History Family Medical History: Noncontributory - Tobacco Use Smoking Status *Q: Current Every Day Smoker Years of Tobacco use: 18 Packs/Tins Daily: 1 - Caffeine Use Caffeine Use: Reports: Soda - Recreational Drug Use Recreational Drug Use: No - Living Situation & Occupation Living situation: Reports: (reports left her 6 months ago.) Occupation: Employed ([employer]) ED ROS GENERAL - Review of Systems Review Of Systems: ROS reveals no pertinent complaints other than HPI. - Physical Exam Exam: See Below (see dictation) Course - Vital Signs Last Recorded V/S: Last Vital Signs Temp 96.7 F 03/11/19 10:07 Pulse 101 H 03/11/19 10:07 Resp 18 03/11/19 10:07 BP 125/79 03/11/19 10:07 Pulse Ox 96 03/11/19 10:07 - Orders/Labs/Meds Orders: Active Orders 24 hr Category Date Time Status EKG Documentation Completion [RC] STAT Care 03/11/19 10:13 Active CULTURE URINE [RM] Stat Lab 03/11/19 11:15 Received UA W/MICROSCOPIC [URIN] Stat Lab 03/11/19 11:15 Results Labs: Laboratory Tests 03/11/19 03/11/19 03/11/19 Range/Units 10:27 10:27 11:15 WBC 7.37 (4.0-11.0) K/uL RBC 4.54 (4.30-5.90) M/uL Hgb 14.6 (12.0-16.0) g/dL Hct 44.8 (36.0-46.0) % MCV 98.7 H (80.0-98.0) fL MCH 32.2 H (27.0-32.0) pg MCHC 32.6 (31.0-37.0) g/dL RDW Std Deviation 58.5 (28.0-62.0) fl RDW Coeff of Kenny 16 H (11.0-15.0) % Plt Count 215 (150-400) K/uL MPV 10.00 (7.40-12.00) fL Neut % (Auto) 61.1 (48.0-80.0) % Lymph % (Auto) 26.7 (16.0-40.0) % [place] % (Auto) 9.1 (0.0-15.0) % Eos % (Auto) 1.5 (0.0-7.0) % Baso % (Auto) 1.6 H (0.0-1.5) % Neut # (Auto) 4.5 (1.4-5.7) K/uL Lymph # (Auto) 2.0 (0.6-2.4) K/uL [place] # (Auto) 0.7 (0.0-0.8) K/uL Eos # (Auto) 0.1 (0.0-0.7) K/uL Baso # (Auto) 0.1 (0.0-0.1) K/uL Nucleated RBC % 0.0 /100WBC Nucleated RBCs # 0 K/uL Sodium 144 (136-145) mmol/L Potassium 4.2 (3.5-5.1) mmol/L Chloride 107 (98-107) mmol/L Carbon Dioxide 22.4 (21.0-32.0) mmol/L BUN 10 (7.0-18.0) mg/dL Creatinine 0.5 L (0.6-1.0) mg/dL Est Cr Clr Drug Dosing 146.90 mL/min Estimated GFR (MDRD) > 60.0 ml/min Glucose 98 (74-106) mg/dL Calcium 9.2 (8.5-10.1) mg/dL Total Bilirubin 0.2 (0.2-1.0) mg/dL AST 109 H (15-37) IU/L ALT 115 H (14-63) IU/L Alkaline Phosphatase 92 (46-116) U/L Total Protein 6.9 (6.4-8.2) g/dL Albumin 3.7 (3.4-5.0) g/dL Globulin 3.2 (2.6-4.0) g/dL Albumin/Globulin Ratio 1.2 (0.9-1.6) Urine Color YELLOW Urine Appearance CLOUDY Urine pH 6.0 (5.0-8.0) Ur Specific [place] 1.025 (1.001-1.035) Urine Protein TRACE H (NEGATIVE) mg/dL Urine Glucose (UA) NEGATIVE (NEGATIVE) mg/dL Urine Ketones NEGATIVE (NEGATIVE) mg/dL Urine Occult Blood LARGE H (NEGATIVE) Urine Nitrite POSITIVE H (NEGATIVE) Urine Bilirubin NEGATIVE (NEGATIVE) Urine Urobilinogen 1.0 (<2.0) EU/dL Ur Leukocyte Esterase MODERATE H (NEGATIVE) Departure - Departure Time of Disposition: 11:34 Disposition: Home, Self-Care 01 Condition: Good Clinical Impression: UTI (urinary tract infection), History of seizure disorder - Discharge Information Prescriptions: levETIRAcetam [Keppra] 500 mg PO BID #20 tablet Nitrofurantoin Monohyd/M-Cryst [Macrobid 100 mg Capsule] 100 mg PO BID 7 Days # 14 capsule Referrals: Jennifer Dill PA [Primary Care Provider] - Forms: ED Department Discharge Additional Instructions: The following information is given to patients seen in the emergency department who are being discharged to home. This information is to outline your options for follow-up care. We provide all patients seen in our emergency department with a follow-up referral. The need for follow-up, as well as the timing and circumstances, are variable depending upon the specifics of your emergency department visit. If you don't have a primary care physician on staff, we will provide you with a referral. We always advise you to contact your personal physician following an emergency department visit to inform them of the circumstance of the visit and for follow-up with them and/or the need for any referrals to a consulting specialist. The emergency department will also refer you to a specialist when appropriate. This referral assures that you have the opportunity for follow-up care with a specialist. All of these measure are taken in an effort to provide you with optimal care, which includes your follow-up. Under all circumstances we always encourage you to contact your private physician who remains a resource for coordinating your care. When calling for follow-up care, please make the office aware that this follow-up is from your recent emergency room visit. If for any reason you are refused follow-up, please contact the [facility] Emergency Department at and asked to speak to the emergency department charge nurse. [facility] [address] [place] [id number] [address] Take medications as instructed Follow up with primary care provider Return to ED as needed as discussed - My Orders Last 24 Hours: My Active Orders 03/11/19 10:13 EKG Documentation Completion [RC] STAT 03/11/19 11:15 CULTURE URINE [RM] Stat UA W/MICROSCOPIC [URIN] Stat - Assessment/Plan Last 24 Hours: My Active Orders 03/11/19 10:13 EKG Documentation Completion [RC] STAT 03/11/19 11:15 CULTURE URINE [RM] Stat UA W/MICROSCOPIC [URIN] Stat
[2019-03-11 11:13] LABS: BLOOD UREA NITROGEN,BUN 10 mg/dL (7.0-18.0); CARBON DIOXIDE,CO2 22.4 mmol/L (21.0-32.0); CHLORIDE,CL 107 mmol/L (98-107); GLUCOSE RANDOM 98 mg/dL (74-106); POTASSIUM,K 4.2 mmol/L (3.5-5.1); SODIUM,NA 144 mmol/L (136-145)
--- NOTE | 2019-03-11 11:24 | CR ---
INDICATION: Pain and SOB. Seizure. TECHNIQUE: PA and lateral. COMPARISON: 09/16/2018. FINDINGS: No significant change. Lungs and pleural spaces clear. Right-sided aortic arch. Heart size and pulmonary vasculature within normal limits. No significant bony abnormality. IMPRESSION: 1. No significant change. No active disease. 2. Right-sided aortic arch. Dictated by Zi Martinez MD @ Mar 11 2019 11:18AM Signed by Dr. Zi Martinez @ Mar 11 2019 11:22AM
== END 2019-03-11 11:43 | disposition home or self-care (01) ==
LOC: MW.ED 10:02
DX: G40.909 Epilepsy, unspecified, not intractable, without status epilepticus (principal); N39.0 Urinary tract infection, site not specified; Z86.2 Personal history of diseases of the blood and blood-forming organs and certain disorders involving the immune mechanism; F17.210 Nicotine dependence, cigarettes, uncomplicated; Z88.5 Allergy status to narcotic agent; Z88.8 Allergy status to other drugs, medicaments and biological substances; Z88.1 Allergy status to other antibiotic agents
CPT/HCPCS: 36415; 71046; 71046-26; 80053; 81001; 85025; 87086; 87088; 87186; 93005; 99283; 99284-25

== ENCOUNTER 2019-07-30 03:10 | Emergency (ER) | payer BC ==
[2019-07-30] MEDS ORDERED: diphenhydrAMINE 50 MG/ML SDV IM ONE (03:27)
[2019-07-30] MEDS ORDERED: methylPREDNISolone Sodium Succinate 125 MG/2 ML SDV IM ONE (03:27)
--- NOTE | 2019-07-30 03:34 | EDM.PDOC ---
ED HPI GENERAL MEDICAL PROBLEM - General Chief Complaint: Skin Complaint Stated Complaint: RASH ALL OVER BODY Time Seen by Provider: 07/30/19 03:20 - History of Present Illness INITIAL COMMENTS - FREE TEXT/NARRATIVE: HISTORY AND PHYSICAL: History of present illness: The patient is a 39-year-old female with a history of COPD/asthma seizure disorder gastric bypass fibromyalgia hysterectomy cholecystectomy who presents with 2 hours of a rash which is itchy and uncomfortable. She denies any new foods or products no new lotions although she said she did dye her hair at this past evening but she has used the dye products in the past. She says that she has an allergy to red dye so she did not take any Benadryl as they did not have any other Benadryl at home. She is not short of breath and she does not have any chest pain or palpitations. She has no abdominal complaints and earlier this evening she was in her usual state of good health without any systemic issues. According to her significant other at bedside the rash was more prominent present on her back abdomen and chest and it is slightly diminished here in the ED and is mostly in her upper chest upper back and upper extremities. Never seem to involve her face per the testimony. The patient does not feel like she is having difficulty swallowing Review of systems: As per history of present illness and below otherwise all systems reviewed and negative. Past medical history: As per history of present illness and as reviewed below otherwise noncontributory. Surgical history: As per history of present illness and as reviewed below otherwise noncontributory. Social history: No reported history of drug or alcohol abuse. Family history: As per history of present illness and as reviewed below otherwise noncontributory. Physical exam: Well-developed well-nourished female who is nontoxic and speaking clearly in the ED without breathlessness hoarse or muffled voice. Vital signs are noted by me. The patient does seem slightly anxious in the ED on my interview. HEENT: Atraumatic, normocephalic, pupils reactive, negative for conjunctival pallor or scleral icterus, mucous membranes moist, throat clear, neck supple, nontender, trachea midline. No facial or oropharyngeal erythema. Lungs: Clear to auscultation, breath sounds equal bilaterally, chest nontender. No wheezing stridor or work of breathing Heart: S1S2, regular rhythm and tachycardic rate on my evaluation but no overt murmurs., negative for clicks, rubs, or JVD. Abdomen: Soft, nondistended, nontender. Negative for masses or hepatosplenomegaly. Negative for costovertebral tenderness. Pelvis: Deferred Genitourinary: Deferred. Rectal: Deferred. Extremities: Atraumatic, negative for cords or calf pain. Neurovascular unremarkable. Neuro: Awake, alert, oriented. Cranial nerves II through XII unremarkable. Cerebellum unremarkable. Motor and sensory unremarkable throughout. Exam nonfocal. Skin: There are patches of urticaria and maculopapular lesions seen on the upper extremities anterior upper chest area and neck and a smaller amount on the posterior upper back with minimal seen on the lower back abdomen and only a few patches on the lower extremities on the anterior thighs but not the lower legs. There is no evidence of any rash or lesions seen on the face or scalp. Diagnostics: [] Therapeutics: Benadryl, Solu-Medrol IM i advised patient about HR and need to push fluids and relax. I also advised about topicals she can use and need to continue the benadryl next 24hrs. Impression: Contact allergic reaction Definitive disposition and diagnosis as appropriate pending reevaluation and review of above. - Related Data Allergies Allergy/AdvReac Type Severity Reaction Status Date / Time red dye Allergy Severe Anaphylactic Verified 07/30/19 03:24 Shock cephalexin Allergy Rash Verified 07/30/19 03:24 Cephalosporins Allergy Difficulty Verified 07/30/19 03:24 Breathing meperidine [From Demerol] Allergy Rash Verified 07/30/19 03:24 morphine Allergy Tachycardia Verified 07/30/19 03:24 Opioids - Morphine Analogues Allergy Tachycardia Verified 07/30/19 03:24 opium alkaloids Allergy Difficulty Uncoded 07/30/19 03:24 Breathing Home Meds: Home Meds levETIRAcetam [Keppra] 500 mg PO BID #20 tablet 03/11/19 [Rx] Past Medical History HEENT History: Reports: None, Other (See Below) Other HEENT History: sinus polyps Cardiovascular History: Reports: None Respiratory History: Reports: Asthma, Bronchitis, Recurrent, COPD Gastrointestinal History: Reports: Cholelithiasis, Hemorrhoids, Irritable Bowel Syndrome Other Gastrointestinal History: hx gastric ulcer Genitourinary History: Reports: None, Other (See Below) Other Genitourinary History: HPV SP[employer] BU[employer]ER History: Reports: Dysfunctional Uterine Bleeding, Other (See Below), Other SPACE BU[employer]ER History: history of vaginal hysterectomy without removal of ovaries Musculoskeletal History: Reports: Arthritis, Back Pain, Chronic, Fibromyalgia, Other (See Below) Other Musculoskeletal History: scoliosis Neurological History: Reports: Head Trauma, Migraines, Seizure Psychiatric History: Reports: Anxiety, None, Panic Attack Endocrine/Metabolic History: Reports: None, Other (See Below) Other Endocrine/Metabolic History: hypoglycemia Hematologic History: Reports: Anemia, Blood Transfusion(s), Transfusion Reaction Other Hematologic History: states had some sort of reaction with first blood transfusion 5 yrs ago, but unsure what it was Immunologic History: Reports: None Oncologic (Cancer) History: Reports: None Dermatologic History: Reports: None - Infectious Disease History Infectious Disease History: Reports: Chicken Pox - Past Surgical History Head Surgeries/Procedures: Reports: None HEENT Surgical History: Reports: Adenoidectomy, Tonsillectomy GI Surgical History: Reports: Bariatric Procedure, Cholecystectomy Female Surgical History: Reports: Hysterectomy - History Comment History Comment: Identical twin, 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 Social & Family History - Family History Family Medical History: Noncontributory - Caffeine Use Caffeine Use: Reports: Soda - Living Situation & Occupation Living situation: Reports: (reports left her 6 months ago.) Occupation: Employed ([employer]) ED ROS GENERAL - Review of Systems Review Of Systems: Comprehensive ROS is negative, except as noted in HPI. ED EXAM, SKIN/RASH Exam: See Below (See dictation) Course - Vital Signs Last Recorded V/S: Last Vital Signs Temp 35.7 C 07/30/19 03:11 Pulse 123 H 07/30/19 03:11 Resp 22 H 07/30/19 03:11 BP 106/66 07/30/19 03:11 Pulse Ox 96 07/30/19 03:11 - Orders/Labs/Meds Orders: Active Orders 24 hr Category Date Time Status diphenhydrAMINE [Benadryl] Med 07/30/19 03:27 Once 50 mg IM ONETIME ONE methylPREDNISolone Sod Succ [Solu-MEDROL] Med 07/30/19 03:27 Once 125 mg IM ONETIME ONE Departure - Departure Time of Disposition: 03:33 Disposition: Home, Self-Care 01 Condition: Good Clinical Impression: Contact allergic reaction - Discharge Information Referrals: Jennifer Dill PA [Primary Care Provider] - Additional Instructions: The following information is given to patients seen in the emergency department who are being discharged to home. This information is to outline your options for follow-up care. We provide all patients seen in our emergency department with a follow-up referral. The need for follow-up, as well as the timing and circumstances, are variable depending upon the specifics of your emergency department visit. If you don't have a primary care physician on staff, we will provide you with a referral. We always advise you to contact your personal physician following an emergency department visit to inform them of the circumstance of the visit and for follow-up with them and/or the need for any referrals to a consulting specialist. The emergency department will also refer you to a specialist when appropriate. This referral assures that you have the opportunity for followup care with a specialist. All of these measure are taken in an effort to provide you with optimal care, which includes your followup. Under all circumstances we always encourage you to contact your private physician who remains a resource for coordinating your care. When calling for followup care, please make the office aware that this follow-up is from your recent emergency room visit. If for any reason you are refused follow-up, please contact the [facility] emergency department at and ask to speak to the emergency department charge nurse. [facility] Primary care- Internal Medicine and Family [address] [address] Push hydration and please use [id number] Benadryl that is dye free 50 mg every 6 hours for the next 24 hours and then every 6 hours as needed for rash or itching. Fill your prescription for prednisone and start taking this later this afternoon as you have Eduard been given a dose of steroids here in the emergency department. Push hydration and continue to monitor your symptoms. Connect with your provider in the clinic for reevaluation and further care and possible referral to cardiology technician as needed. Return to ER as needed and as discussed. Try to explore your world to see what you may have contacted that caused your reaction in the areas that we discussed. Sepsis Event Note - Evaluation Sepsis Screening Result: No Definite Risk - Focused Exam Vital Signs: Vital Signs Temp Pulse Resp BP Pulse Ox 07/30/19 03:11 35.7 C 123 H 22 H 106/66 96 Date Exam was Performed: 07/30/19 Time Exam was Performed: 03:28 - My Orders Last 24 Hours: My Active Orders 07/30/19 03:27 diphenhydrAMINE [Benadryl] 50 mg IM ONETIME ONE methylPREDNISolone Sod Succ [Solu-MEDROL] 125 mg IM ONETIME ONE - Assessment/Plan Last 24 Hours: My Active Orders 07/30/19 03:27 diphenhydrAMINE [Benadryl] 50 mg IM ONETIME ONE methylPREDNISolone Sod Succ [Solu-MEDROL] 125 mg IM ONETIME ONE
== END 2019-07-30 03:55 | disposition home or self-care (01) ==
LOC: MW.ED 03:10
DX: T65.6X1A Toxic effect of paints and dyes, not elsewhere classified, accidental (unintentional), initial encounter (principal); L23.4 Allergic contact dermatitis due to dyes; J44.9 Chronic obstructive pulmonary disease, unspecified; G40.909 Epilepsy, unspecified, not intractable, without status epilepticus; Z88.1 Allergy status to other antibiotic agents; Z88.5 Allergy status to narcotic agent; Z91.048 Other nonmedicinal substance allergy status; Z79.899 Other long term (current) drug therapy
CPT/HCPCS: 96372; 99282; J1200; J2930; 99283